=== PATIENT | female | born 1980 | race Caucasian/White ===

== ENCOUNTER → 2020-08-14 14:27 | Outpatient (BNVA) | payer MEDICAID, SELFPAY | PROVIDERS: Visit Provider Registered Nurse Neonatal Intensive Care | DX: J02.9 Acute pharyngitis, unspecified (principal) | CPT/HCPCS: 87880 ==

== ENCOUNTER 2020-12-05 22:41 | Emergency (ER) | payer MEDICAID, SELFPAY ==
[2020-12-05 22:49] VITALS: BP 130/92; PULSE 108; RESP 24; TEMP 36.2; O2SAT 98; BMI 32.4
--- NOTE | 2020-12-05 22:54 | XRR_ITS ---
PROCEDURE INFORMATION: Exam: XR Chest Exam date and time: 12/05/2020 10:54 PM Age: 40 years old Clinical indication: Pain; Left-sided; Additional info: Left sided chest pain under breast TECHNIQUE: Imaging protocol: XR of the chest. Views: 1 view. COMPARISON: CR Chest 2 views* [id number] 01/10/2014 1:35 PM FINDINGS: Lungs: Unremarkable. No consolidation. Pleural spaces: Unremarkable. No pleural effusion. No pneumothorax. Heart/Mediastinum: Unremarkable. No cardiomegaly. Bones/joints: Unremarkable. XR/XR chest 1V portable [id number] IMPRESSION: No acute findings.
--- NOTE | 2020-12-05 23:46 | W.ED.SOB ---
HPI - SOB/Dyspnea General: Chief Complaint: Shortness of Breath/Dyspnea Stated Complaint: cp Time Seen by Provider: 12/05/20 23:22 Source: patient Mode of arrival: ambulatory Limitations: no limitations History of Present Illness: HPI Narrative: 40-year-old female states that she been having left and right-sided chest pain the last 2 days. States it is very sharp and severe in nature. States pain is worse with deep breaths and with point tenderness. She states is improved with rest. States the pain is currently 6 out of 10. Denies any fever. Denies any cough. Denies any vomiting or diarrhea. Associated symptoms: Reports chest pain; Deny abdominal pain, fever(s), nausea or vomiting Review of Systems Const: Denies: fever(s), chills, body aches or change in appetite Eyes: Denies: blurry vision or eye discomfort ENMT: Denies: throat pain or dental pain Card: Reports: chest pain Resp: Denies: dyspnea GI: Denies: abdominal pain, nausea, vomiting or diarrhea : Denies: dysuria Musc: Denies: neck pain or back pain Skin/Breast: Denies: rash Neuro: Denies: headache(s) Psych: Denies: depression Luis/Lymph: Denies: easy bruising All/Imm: Denies: urticaria PFSH ED PFSH: Social History Smoking and tobacco status: current every day smoker Quit status (tobacco): not considering quitting Second hand smoke exposure: Yes Alcohol intake: never Desire information about alcohol rehabilitation?: No Desire information about substance/drug rehabilitation?: No Physical Exam Const: COMMON NORMALS: no acute distress, patient oriented x3 and healthy appearing HENMT: COMMON NORMALS: normocephalic and atraumatic HEAD & SCALP: normocephalic and atraumatic Eye: COMMON NORMALS: Equal, round and reactive pupils present and EOMs intact bilaterally PUPIL: Yes Equal, round and reactive pupils present Neck/C-Spine: COMMON NORMALS: full ROM and supple Chest: COMMONS NORMALS: normal inspection of the chest OTHER: Point tender to left chest reproduces pain Resp: COMMON NORMALS: normal respiratory effort, No retractions, No use of accessory muscles and clear to auscultation bilaterally AUSCULTATION: clear to auscultation bilaterally Cardio: COMMON NORMALS: regular rate, regular rhythm and No murmurs present (Cardio) RATE: regular rate RHYTHM: regular rhythm GI: COMMON NORMALS: Normal to inspection, nondistended, normoactive bowel sounds present, Soft to palpation, non-tender and no masses PALPATION: Yes Soft to palpation Extremity: COMMON NORMALS: normal to inspection and full ROM Neuro: COMMON NORMALS: patient oriented x3, moves all extremities and no focal motor deficits Psych: COMMON NORMALS: mental status grossly normal, Normal thought process present and cooperative THOUGHT PROCESS: Normal thought process present Skin: COMMON NORMALS: no rashes or lesions noted and no wounds GENERAL SKIN EXAM: no rashes or lesions noted Course Vital Signs: Vital signs: Vital Signs Temperature 97.1 F L 12/05/20 22:49 Pulse Rate 92 12/06/20 00:08 Respiratory Rate 20 H 12/06/20 00:08 Blood Pressure 130/92 12/05/20 22:49 Pulse Oximetry 97 12/06/20 00:08 MDM - SOB/Dyspnea MDM Narrative: Medical decision making narrative: Patient presents here with chest pain is likely chest wall pain as she is point tender on exam. EKG x-ray and blood work are all normal she has no signs of cardiac cause or pulmonary embolism. She is stable for discharge is to follow-up PCP and return if worsening. She understands agrees to plan. Lab Data: Labs: Lab Results 12/05/20 12/05/20 12/05/20 Range/Units 23:39 23:39 23:39 WBC 6.5 (4.0-10.0) 10^3/ uL RBC 5.42 H (4.1-5.3) 10^6/u L Hgb 15.7 H (11.5-15.3) g/dL Hct 48.6 H (37.0-47.0) % MCV 89.7 (81-99) fl MCH 29.0 (28.0-34.0) pg MCHC 32.3 (30.0-36.0) g/dL RDW 14.6 (12.1-15.1) % Plt Count 261 (130-400) 10^3/c mm MPV 10.8 H (7.4-10.4) fL Neut % (Auto) 58.9 % Lymph % (Auto) 27.3 % [place] % (Auto) 11.8 % Eos % (Auto) 1.1 % Baso % (Auto) 0.3 % Neut # (Auto) 3.80 (1.8-7.7) 10^3/u L Lymph # (Auto) 1.8 (0.8-4.8) 10^3/u L [place] # (Auto) 0.8 (0.2-0.9) 10^3/u L Eos # (Auto) 0.1 (0.0-0.8) 10^3/u L Baso # (Auto) 0.0 (0.0-0.1) 10^3/u L Nucleated RBC % (a uto) 0 % Nucleated RBCs # 0.0 /100WBC D-Dimer (0-0.59) ug/mIFE U Sodium 137 (136-145) mmol/L Potassium 4.2 (3.5-5.1) mmol/L Chloride 103 (98-107) mmol/L Carbon Dioxide 20 L (22-29) mmol/L Anion Gap 18.2 (5-19) BUN 9 (6-20) mg/dL Creatinine 0.8 (0.5-0.9) mg/dL GFR Calculation 78.7 L (90-130) mL/min Glucose 101 (65-115) mg/dL Calculated Osmolal ity 283 L (285-295) mOsm/k g Calcium 8.8 (8.5-10.5) mg/dL Total Bilirubin 0.2 (0.15-1.2) mg/dL AST 26 (0-32) U/L ALT 26 (0-33) U/L Alkaline Phosphata se 110 H (35-105) IU/L Troponin T Baselin e 6 (0-10) ng/L Total Protein 7.3 (6.6-8.7) g/dL Albumin 4.6 (3.5-5.2) g/dL Globulin 2.7 (1.3-4.6) g/dL HCG, Qual (Negative) 12/05/20 12/05/20 Range/Units 23:39 23:39 WBC (4.0-10.0) 10^3/ uL RBC (4.1-5.3) 10^6/u L Hgb (11.5-15.3) g/dL Hct (37.0-47.0) % MCV (81-99) fl MCH (28.0-34.0) pg MCHC (30.0-36.0) g/dL RDW (12.1-15.1) % Plt Count (130-400) 10^3/c mm MPV (7.4-10.4) fL Neut % (Auto) % Lymph % (Auto) % [place] % (Auto) % Eos % (Auto) % Baso % (Auto) % Neut # (Auto) (1.8-7.7) 10^3/u L Lymph # (Auto) (0.8-4.8) 10^3/u L [place] # (Auto) (0.2-0.9) 10^3/u L Eos # (Auto) (0.0-0.8) 10^3/u L Baso # (Auto) (0.0-0.1) 10^3/u L Nucleated RBC % (a uto) % Nucleated RBCs # /100WBC D-Dimer <= 0.27 (0-0.59) ug/mIFE U Sodium (136-145) mmol/L Potassium (3.5-5.1) mmol/L Chloride (98-107) mmol/L Carbon Dioxide (22-29) mmol/L Anion Gap (5-19) BUN (6-20) mg/dL Creatinine (0.5-0.9) mg/dL GFR Calculation (90-130) mL/min Glucose (65-115) mg/dL Calculated Osmolal ity (285-295) mOsm/k g Calcium (8.5-10.5) mg/dL Total Bilirubin (0.15-1.2) mg/dL AST (0-32) U/L ALT (0-33) U/L Alkaline Phosphata se (35-105) IU/L Troponin T Baselin e (0-10) ng/L Total Protein (6.6-8.7) g/dL Albumin (3.5-5.2) g/dL Globulin (1.3-4.6) g/dL HCG, Qual Negative (Negative) Imaging Data^: CXR: Attestation: I personally reviewed and interpreted this imaging study as follows: Radiologist's impression: [address] [address] XRay Report Signed Patient: Wen Mcintyre Unit #: [id number] : 1980 Age/Sex: 40 / F ADM Date: 12/05/20 Loc: ER Room/Bed: Attending Dr: Ordering Provider/Ordering MD: Sajan Rivas NP Date of Service: 12/05/20 Procedure(s): XR chest 1V portable [id number] Accession Number(s): [id number] Report Number: [id number] PROCEDURE INFORMATION: Exam: XR Chest Exam date and time: 12/05/2020 10:54 PM Age: 40 years old Clinical indication: Pain; Left-sided; Additional info: Left sided chest pain under breast TECHNIQUE: Imaging protocol: XR of the chest. Views: 1 view. COMPARISON: CR Chest 2 views* [id number] 01/10/2014 1:35 PM FINDINGS: Lungs: Unremarkable. No consolidation. Pleural spaces: Unremarkable. No pleural effusion. No pneumothorax. Heart/Mediastinum: Unremarkable. No cardiomegaly. Bones/joints: Unremarkable. XR/XR chest 1V portable [id number] IMPRESSION: No acute findings. Dictated By: Matthew Pozo MD Signed By: Matthew Pozo MD Signed Date/Time: 12/05/202326 DD/ 24 EKG Data^: EKG 1: Attestation: I personally reviewed and interpreted this EKG as follows: EKG Interpretation Date: 12/06/20 EKG interpretation time: 22:58 Interpretation: sinus tach hr [address] or t wave abnormalities qrs 84 qtc 395 Discharge Plan Discharge Patient Disposition: Home Clinical Impression: Chest pain Qualifiers: Chest pain type: unspecified Qualified Code(s): R07.9 - Chest pain, unspecified Condition: Stable Prescriptions: New methocarbamol 750 mg tablet 750 mg PO Q6H PRN (Reason: spasms) Qty: 20 RF: 0 Naprosyn 500 mg tablet 500 mg PO BID PRN (Reason: pain) Qty: 20 RF: 0 No Action amoxicillin 500 mg capsule 500 mg PO QID Qty: 40 RF: 0 Discharge Orders: Discharge ED (Routine); Ordered 12/06/20 Ordered By: Libia Pierre Discharge Diet: Advance as tolerated Discharge Activity: Resume usual activity Patient Instructions: Chest Pain - Chest Wall Coding Level of Care Code ED Grain Commodity Manager for Chg Fwd Exam Comprehensive
[2020-12-05 23:51] LABS: Basophils % 0.3 %; Eosinophils # 0.1 10^3/uL (0.0-0.8); Eosinophils % 1.1 %; Hematocrit 48.6 % (37.0-47.0); Hemoglobin 15.7 g/dL (11.5-15.3); Lymphocytes # 1.8 10^3/uL (0.8-4.8); Lymphocytes % 27.3 %; Mean Corpuscular HGB Conc 32.3 g/dL (30.0-36.0); Mean Corpuscular Volume 89.7 fl (81-99); Mean Platelet Volume 10.8 fL (7.4-10.4); Monocytes # 0.8 10^3/uL (0.2-0.9); Monocytes % 11.8 %; Neutrophils % 58.9 %; Nucleated Red Blood Cells % 0 %; Platelet Count 261 10^3/cmm (130-400); Red Blood Count 5.42 10^6/uL (4.1-5.3); Red Cell Distribution Width 14.6 % (12.1-15.1); White Blood Count 6.5 10^3/uL (4.0-10.0)
[2020-12-06 00:04] LABS: D Dimer <= 0.27 ug/mIFEU (0-0.59); HCG, Serum Qual Negative (Negative)
[2020-12-06] MEDS: ondansetron 2 mg/ML SDV 2 mL 4 MG IVP (00:06)
[2020-12-06] MEDS: morphine 4 mg/mL SDV 1 mL IVP (00:07)
[2020-12-06 00:08] VITALS: PULSE 92; RESP 20; O2SAT 97
[2020-12-06 00:15] LABS: Alanine Aminotransferase 26 U/L (0-33); Albumin Level 4.6 g/dL (3.5-5.2); Alkaline Phosphatase 110 IU/L (35-105); Blood Urea Nitrogen 9 mg/dL (6-20); Calcium 8.8 mg/dL (8.5-10.5); Carbon Dioxide 20 mmol/L (22-29); Chloride 103 mmol/L (98-107); Globulin 2.7 g/dL (1.3-4.6); Glomerular Filtration Rate 78.7 mL/min (90-130); Glucose 101 mg/dL (65-115); Osmolality Calculated 283 mOsm/kg (285-295); Sodium 137 mmol/L (136-145); Total Bilirubin 0.2 mg/dL (0.15-1.2); Total Protein 7.3 g/dL (6.6-8.7)
[2020-12-06 00:18] LABS: Anion Gap 18.2 (5-19); Aspartate Amino Transferase 26 U/L (0-32); Potassium 4.2 mmol/L (3.5-5.1); Troponin(5th) Baseline 6 ng/L (0-10)
[2020-12-06 00:30] VITALS: PULSE 97; RESP 16; O2SAT 98
== END 2020-12-06 00:30 | disposition home or self-care (01) ==
PROVIDERS: Nurse Practitioner Family; Emergency Provider Emergency Medicine
DX: R07.9 Chest pain, unspecified (principal); F17.200 Nicotine dependence, unspecified, uncomplicated
CPT/HCPCS: 71045; 80053; 84484; 84703; 85025; 85378; 96374; 96375; 99283; J2270; J2405

== ENCOUNTER → 2021-10-16 11:33 | Outpatient (BNVA) | payer MEDICAID, SELFPAY | PROVIDERS: PCP Nurse Practitioner Family; Visit Provider Obstetrics & Gynecology | DX: Z01.812 Encounter for preprocedural laboratory examination (principal); N75.1 Abscess of Bartholin's gland | CPT/HCPCS: 80053; 81000; 81025; 85025; 86850; 86900 ==

== ENCOUNTER 2021-10-17 12:22 | Day surgery (SDC) | payer MEDICAID, SELFPAY ==
[2021-10-17 13:00] VITALS: BMI 34.3
[2021-10-17 13:06] LABS: OR HCG Qualitative Urine Negative (Negative)
[2021-10-17] MEDS: sodium chloride 0.9% 500 ML IV (13:19)
[2021-10-17] MEDS: scopolamine 1.5 Patch 1 PATCH TRANSDERMA (13:19)
[2021-10-17] MEDS: sodium chloride 0.9% 1,000 ML 30 ML IV (13:49)
--- NOTE | 2021-10-17 14:16 | ANES.PREANE2 ---
Pre-Anesthetic Assessment Height/Weight: Height 1.63 m Weight 90.718 kg Preop Diagnosis: Left Bartholin gland cyst Operation Date: 10/17/21 13:55 Proposed Procedures p Marsupialization of bartholins gland cyst 66844,N75.0(Not Applicable) - Joe Donohue MD Familial anesthetic complications: None Was Beta Afua taken within 24 hours: N/A Was Clonidine taken within 24 hours: N/A Last intake: Intake Last Liquid Date 10/16/21 Last Liquid Time 22:30 Last Solid Date 10/16/21 Last Solid Time 22:30 Social Alcohol and Tobacco Exam alert, oriented x 3 and regular rate & rhythm Airway Submandibular: within normal limits Cervical ROM: within normal limits Mallampati: Class II Dentition: chipped Pulmonary Chronic Obstructive Pulmonary Disease CV/HEM Hypertension Metabolic Morbid Obesity Anesthetic Plan ASA status: 3 Anesthesia: General Medications/Allergies Home Medications Medication Instructions Recorded Confirmed Last Taken Type lisinopril 10 mg tablet 10 mg PO DAILY 12/16/20 10/17/21 10/16/21 History ibuprofen 800 mg tablet 800 mg PO TID PRN #90 tab 12/29/20 10/17/21 10/16/21 Rx Allergies Allergy/AdvReac Type Severity Reaction Status Date / Time No Known Allergies Allergy Verified 10/16/21 11:01 Current Medications Generic Name Dose Route Start Last Admin Trade Name Freq PRN Reason Stop Dose Admin Sodium Chloride 1,000 mls @ 30 mls/hr 10/17/21 13:45 10/17/21 13:49 Sodium Chloride 0.9% IV 10/18/21 13:44 30 mls/hr .Q24H WILMER Administration PFSH Anesthesia Family History Mother Anesthesia complication Father Dementia Other Bleeding disorder CAD (coronary artery disease) Cancer Chronic kidney disease (CKD) Clotting disorder Diabetes Hypertension Stroke Denies family history of Hyperlipidemia Psychiatric illness Suicide Lung disease Social History Smoking and tobacco status: current every day smoker Quit status (tobacco): not considering quitting Second hand smoke exposure: Yes Alcohol intake: never Desire information about alcohol rehabilitation?: No Desire information about substance/drug rehabilitation?: No Data Anesthesia Cardiac Studies: No Data to Display
--- NOTE | 2021-10-17 14:36 | W.PM.OPSUD ---
Surgery/Procedure H&P Update DATE OF PROCEDURE: October 17, 2021 DATE H&P PERFORMED: 10/16/21 H&P UPDATE INFORMATION: I have reviewed H&P completed within last 30 days, I have examined patient prior to procedure and Changes to prior documentation as noted here PREOP DIAGNOSIS: Left Bartholin gland cyst PLANNED PROCEDURE: Operation Date: 10/17/21 13:55 Proposed Procedures p Marsupialization of bartholins gland cyst 80974,N75.0(Not Applicable) - Joe Donohue MD
[2021-10-17] MEDS: ceFAZolin 2,000 MG in sodium chloride 0.9% (plus) 50 ML 100 MG IV (16:10)
--- NOTE | 2021-10-17 16:50 | PM.OP ---
Operative Report Date of procedure: October 17, 2021 Pre-op diagnosis: Preop Diagnosis Left Bartholin gland cyst Post-op diagnosis: Same as above Post-op findings: Left Bartholin gland cyst Procedure done: Left Bartholin gland marsupialization Surgeon: Joe Donohue MD Estimated blood loss (mL): 5 IV fluids (mL): 1,000 Procedure: After informed consent, the patient was taken to the operating room where general anesthesia was administered. The patient was placed in dorsal lithothomy position. She was examined under anesthesia and found to have a normal uterus with normal adnexa. After a bimanual examination to determine the extent of the cyst. She was then prep and draped in normal sterile fashion. The labia were retracted with the [place] Start retractor and the introitus of the Vagina was exposed. An incision was made over the mucosa of the vagina at its junction with the introitus down to the wall of the gland on the left side. The wall of the gland was incised and the content of the cyst was evacuated. A culture was taken. The west of the cyst were grasped with Allis clamps. The wall of the cyst were sutured with interrupted 3-0 Vicril to the skin of introitus laterally and to the vaginal of mucosa medially. The patient tolerated the procedure well and instruments and laps count was correct times two.
[2021-10-17 16:53] VITALS: BP 143/92; PULSE 68; RESP 20; TEMP 36.7; O2SAT 96
[2021-10-17 16:57] VITALS: BP 160/107; PULSE 68; RESP 17; O2SAT 100
[2021-10-17 17:00] VITALS: BP 163/100; PULSE 71; RESP 19; TEMP 36.7; O2SAT 97
[2021-10-17 17:05] VITALS: BP 166/95; PULSE 70; RESP 18; O2SAT 96
--- NOTE | 2021-10-17 17:27 | ANE.PACU2 ---
Inpatient post-anesthesia follow up: Airway intact: Yes Vital signs: Temperature 98.0 F Pulse Rate 70 Respiratory Rate 18 Blood Pressure 166/95 Pulse Oximetry 96 Oxygen Delivery Me thod Room Air Oxygen Flow Rate 6 Fraction of Inspir ed Oxygen Hydration adequate: Yes Nausea and vomiting: No Pain level: 3 Mental status: Baseline
[2021-10-17 17:30] VITALS: BP 157/96; PULSE 67; RESP 18; TEMP 36.8; O2SAT 98
== END 2021-10-17 17:50 | disposition home or self-care (01) ==
PROVIDERS: Anesthesiology; PCP Nurse Practitioner Family; Visit Provider Obstetrics & Gynecology
PROC: (CPT 56740; principal; 2021-10-17 13:45)
DX: N75.0 Cyst of Bartholin's gland (principal); J44.9 Chronic obstructive pulmonary disease, unspecified; I10 Essential (primary) hypertension; E66.01 Morbid (severe) obesity due to excess calories; Z68.34 Body mass index [BMI] 34.0-34.9, adult; F17.210 Nicotine dependence, cigarettes, uncomplicated
CPT/HCPCS: 56440; 81025; 84703; 87070; 87075; 87205; J2250; J2704; J3010; J7030; J7040

== ENCOUNTER 2022-01-22 21:45 | Inpatient (IN) | payer MEDICAID, SELFPAY ==
[2022-01-22 21:51] VITALS: BP 122/78; PULSE 108; RESP 18; TEMP 36.8; O2SAT 97; BMI 35.0
--- NOTE | 2022-01-22 22:01 | ECG_ITS ---
[facility] Test Date: 2022-01-22 Pat Name: Wen Mcintyre Department: Room: Gender: Female Abrasive Grinder: : 1980 Requested By: Crescencio Hernandez Order Number: [id number] Tereso MD: Parker Judd M.D. Measurements Intervals [place] Rate: 109 P: 68 MT: 148 QRS: 89 QRSD: 93 T: 28 QT: 353 QTc: 476 Interpretive Statements SINUS TACHYCARDIA LEFT ATRIAL ENLARGEMENT [-0.15mV P-WAVE IN V1/V2] Compared to ECG 10/06/2017 15:15:44 Atrial abnormality now present Sinus rhythm no longer present Electronically Signed On 01-23-2022 8:24:14 CDT by Parker Judd M.D. [id number]
--- NOTE | 2022-01-22 22:01 | XRR_ITS ---
PROCEDURE INFORMATION: Exam: XR Chest Exam date and time: 01/22/2022 10:26 PM Age: 41 years old Clinical indication: Chest pressure and chest wall pain; Additional info: Chest pain TECHNIQUE: Imaging protocol: Radiologic exam of the chest. Views: 1 view. COMPARISON: CR XR chest 1V portable [id number] 12/05/2020 10:56 PM FINDINGS: Lungs: Bilateral lower lobe opacities are compatible with superimposition of breast shadows. No consolidation. Pleural spaces: Unremarkable. No pleural effusion. No pneumothorax. Heart/Mediastinum: Unremarkable. No cardiomegaly. Bones/joints: Unremarkable. XR/XR chest 1V portable [id number] IMPRESSION: No acute radiographic findings in the chest.
[2022-01-22 22:29] VITALS: BP 98/69; PULSE 96; RESP 17; O2SAT 95
[2022-01-22 22:32] LABS: Basophils # 0.2 10^3/uL (0.0-0.1); Basophils % 0.9 %; Hematocrit 52.9 % (37.0-47.0); Hemoglobin 18.2 g/dL (11.5-15.3); Lymphocytes # 1.4 10^3/uL (0.8-4.8); Lymphocytes % 6.7 %; Mean Corpuscular HGB Conc 34.4 g/dL (30.0-36.0); Mean Corpuscular Hemoglobin 30.9 pg (28.0-34.0); Mean Corpuscular Volume 89.8 fl (81-99); Mean Platelet Volume 10.2 fL (7.4-10.4); Monocytes # 1.3 10^3/uL (0.2-0.9); Monocytes % 6.3 %; Neutrophils # 17.73 10^3/uL (1.8-7.7); Neutrophils % 84.7 %; Nucleated Red Blood Cells % 0.1 %; Platelet Count 301 10^3/cmm (130-400); Red Blood Count 5.89 10^6/uL (4.1-5.3); Red Cell Distribution Width 14.8 % (12.1-15.1); White Blood Count 20.9 10^3/uL (4.0-10.0)
--- NOTE | 2022-01-22 22:44 | W.ED.CHESTPA ---
HPI - Chest Pain General: Chief Complaint: ER Hold Stated Complaint: Stoke Like Symptoms Time Seen by Provider: 01/22/22 22:44 History of Present Illness: Ms Mcintyre is a 41-year-old lady with history of hypertension who presents to the emergency department due to generalized illness. She reports a few day history of uncontrolled blood pressure despite taking her blood pressure medication however this is gradually improved. However this afternoon she noted right arm cramping and tingling in bilateral fingers with some radiation of the chest. Additionally she had multiple episodes of nonbilious and nonbloody emesis. She has fatigue and presyncopal type feeling. Intensity symptoms is moderate to severe. Course has persisted. No other specific changes in health, exacerbating, or alleviating factors identified. Onset (ago): day(s) Timing of current episode: increasing Onset: during rest Relieving factors: nothing Exacerbating factors: nothing Associated symptoms: Reports nausea and vomiting Review of Systems General: Reports: 10 or more systems reviewed and unremarkable except in HPI and below GI: Reports: nausea and vomiting [facility] ED PFSH: Medical History Bartholin gland cyst 10/17/2021- Left bartholin gland marsupialization performed by Dr. Donohue at [facility] Hypertension Surgical History History of delivery x3 - first one due to failure to progress. Family History Mother Anesthesia complication Father Dementia Other Bleeding disorder CAD (coronary artery disease) Cancer Chronic kidney disease (CKD) Clotting disorder Diabetes Hypertension Stroke Denies family history of Hyperlipidemia Psychiatric illness Suicide Lung disease Social History Smoking and tobacco status: current every day smoker Quit status (tobacco): not considering quitting Second hand smoke exposure: Yes Alcohol intake: never Desire information about alcohol rehabilitation?: No Desire information about substance/drug rehabilitation?: No Female Reproductive History: Date of last menstrual period: 01/08/22 Physical Exam Const: COMMON NORMALS: patient oriented x3 and alert GENERAL APPEARANCE: cooperative and well developed HENMT: COMMON NORMALS: normocephalic and atraumatic HEAD & SCALP: normocephalic and atraumatic THROAT: posterior oropharynx normal Eye: COMMON NORMALS: conjunctivae normal CONJUNCTIVA: Yes conjunctivae normal SCLERA: sclerae normal Neck/C-Spine: COMMON NORMALS: supple GENERAL: Yes trachea midline Resp: COMMON NORMALS: normal respiratory effort and clear to auscultation bilaterally EFFORT & INSPECTION: Yes able to speak in complete sentences AUSCULTATION: clear to auscultation bilaterally Cardio: COMMON NORMALS: regular rate and regular rhythm RATE: regular rate RHYTHM: regular rhythm GI: COMMON NORMALS: Soft to palpation PALPATION: Yes Soft to palpation and No Tenderness to palpation present (GI) Extremity: GENERAL: Yes normal exam except as noted and No edema Neuro: COMMON NORMALS: patient oriented x3, CN's II-XII intact bilaterally, moves all extremities, no focal motor deficits and no sensory deficits noted SENSORIUM/ORIENTATION: Yes alert and No Orientation impaired Psych: COMMON NORMALS: mental status grossly normal and Normal thought process present THOUGHT PROCESS: Normal thought process present Course ED course: - Patient was seen and evaluated by me at bedside - Patient placed on cardiac monitors, IV access obtained - Initial evaluation notable for exam as above. - Labs and xrays personally interpreted by me. EKG notable for sinus rhythm, no STEMI - Fluids, analgesia, and antiemetic given - Labs notable for leukocytosis, hemoconcentration. Metabolic panel with creatinine significantly elevated from prior comparison. Transaminitis of uncertain etiology. - Imaging notable for no lobar consolidation or pneumothorax on chest x-ray. CT head negative for acute intracranial pathology. CT abdomen and pelvis notable for no acute inflammatory process, hepatic steatosis is present which may explain transaminitis. - Upon serial reexamination after treatment the patient was only mildly improved - Based on patient history, evaluation, and testing as interpreted the most likely cause of the patient's condition is DEANNA, chest pain, leukocytosis of uncertain etiology - The results of ED evaluation were discussed with the patient including plan for admission due to requirement for level of care not available if discharged to prevent significant worsening/deterioration. - Admitting service was contacted and Dr Ureña with the hospitalist service agreed to admit the patient - Patient was admitted without further deterioration or significant events. Note: Click bubbles or prepopulated delgado in note writing are used for assistance with data collection and billing and are inherently more limited than narrative and other text portions of this note. Please use narrative for additional clinical history and defer to narrative/free test for any case of contradictory information. If information appears in only free text or click bubble it should be considered present or absent as reported. Please contact note senior grant writer for clarifications of clinical information or contradictory information. MDM is a brief summary, contradictory or erroneous seeming information should be clarified and full note should be reviewed. Vital Signs: Vital signs: Vital Signs Temperature 98.1 F 01/26/22 13:06 Pulse Rate 93 01/26/22 13:06 Respiratory Rate 15 01/26/22 13:06 Blood Pressure 138/88 01/26/22 13:06 Pulse Oximetry 96 01/26/22 13:06 Oxygen Delivery Me thod 01/26/22 11:59 MDM - Chest Pain Medical Decision Making 41-year-old lady presenting with chest pain found to have dehydration with DEANNA and was closed etiology. Admitted for further management. Medical Records I reviewed the patient's medical records. Lab Data I reviewed the patient's lab results. : 01/26/22 05:25 01/26/22 05:25 Radiology Impressions Chest X-Ray 01/22/22 22:01 IMPRESSION: No acute radiographic findings in the chest. Head CT 01/22/22 22:55 IMPRESSION: No evidence of acute intracranial hemorrhage, mass effect, or midline shift. Abdomen/Pelvis CT 01/22/22 23:11 IMPRESSION: 1. Negative for acute inflammatory process in the abdomen or pelvis. 2. Hepatic steatosis. Abdomen Ultrasound 01/23/22 03:24 IMPRESSION: Hyperechoic liver, which can be seen with fatty infiltration or hepatocellular disease. Renal Ultrasound 01/23/22 04:46 IMPRESSION: Normal renal ultrasound. Head MRI 01/24/22 12:14 IMPRESSION: 1. No evidence of restricted diffusion to suggest acute ischemia. 2. No suspicious intracranial signal abnormalities. No evidence of posterior reversible encephalopathy syndrome. 3. No abnormal intracranial enhancement. 4. No hemosiderin on the susceptibility weighted images. 5. No hydrocephalus. 6. Incidental benign enhancing venous angioma in the LEFT frontal white matter. Laboratory Results WBC 5.9 10^3/uL (4.0-10.0) 01/24/22 05:10 RBC 4.69 10^6/uL (4.1-5.3) 01/24/22 05:10 Hgb 14.8 g/dL (11.5-15.3) 01/24/22 05:10 Hct 43.4 % (37.0-47.0) 01/24/22 05:10 MCV 92.5 fl (81-99) 01/24/22 05:10 MCH 31.6 pg (28.0-34.0) 01/24/22 05:10 MCHC 34.1 g/dL (30.0-36.0) 01/24/22 05:10 RDW 14.7 % (12.1-15.1) 01/24/22 05:10 Plt Count 182 10^3/cmm (130-400) D 01/24/22 05:10 MPV 10.5 fL (7.4-10.4) H 01/24/22 05:10 Neut % (Auto) 58.8 % 01/24/22 05:10 Lymph % (Auto) 27.8 % 01/24/22 05:10 [place] % (Auto) 11.0 % 01/24/22 05:10 Eos % (Auto) 1.4 % 01/24/22 05:10 Baso % (Auto) 0.5 % 01/24/22 05:10 Neut # (Auto) 3.47 10^3/uL (1.8-7.7) 01/24/22 05:10 Lymph # (Auto) 1.6 10^3/uL (0.8-4.8) 01/24/22 05:10 [place] # (Auto) 0.7 10^3/uL (0.2-0.9) 01/24/22 05:10 Eos # (Auto) 0.1 10^3/uL (0.0-0.8) 01/24/22 05:10 Baso # (Auto) 0.0 10^3/uL (0.0-0.1) 01/24/22 05:10 Nucleated RBC % (auto) 0 % 01/24/22 05:10 Nucleated RBCs # 0.0 /100WBC 01/24/22 05:10 PT 13.10 SECONDS (12.1-14.9) 01/24/22 05:10 INR 0.96 (0.8-1.2) 01/24/22 05:10 Sodium 133 mmol/L (136-145) L 01/24/22 05:10 Potassium 3.8 mmol/L (3.5-5.1) 01/24/22 05:10 Chloride 97 mmol/L (98-107) L 01/24/22 05:10 Carbon Dioxide 24 mmol/L (22-29) 01/24/22 05:10 Anion Gap 15.8 (5-19) 01/24/22 05:10 BUN 15 mg/dL (6-20) 01/24/22 05:10 Creatinine 1.1 mg/dL (0.5-0.9) H 01/24/22 05:10 GFR Calculation 54.2 mL/min (90-130) L 01/24/22 05:10 Glucose 108 mg/dL (65-115) 01/24/22 05:10 Estimat Average Glucose 120 01/24/22 05:10 Hemoglobin A1c 5.8 % (4.0-6.0) 01/24/22 05:10 Calculated Osmolality 277 mOsm/kg (285-295) L 01/24/22 05:10 Calcium 9.3 mg/dL (8.5-10.5) 01/24/22 05:10 Phosphorus 3.3 mg/dL (2.5-4.5) 01/23/22 15:22 Magnesium 2.2 mg/dL (1.7-2.3) 01/23/22 15:22 Total Bilirubin 0.2 mg/dL (0.15-1.2) 01/24/22 05:10 AST 52 U/L (0-32) H 01/24/22 05:10 ALT 96 U/L (0-33) H 01/24/22 05:10 Alkaline Phosphatase 110 U/L (35-105) H 01/24/22 05:10 Creatine Kinase 207 U/L (26-192) H 01/23/22 15:22 CK-MB (CK-2) 2.6 ng/mL (0-5.34) 01/23/22 15: CK-MB (CK-2) Rel Index % (0.0-10.4) 01/23/22 15:22 Troponin T Baseline 18 ng/L (0-10) H 01/22/22 22:58 Troponin T 120 Minute 11.34 ng/L (0-10) H 01/23/22 02:00 Delta Troponin T -6.66 ABS# (0-10) L 01/23/22 02:00 Troponin T Hi Sens 6Hr 10.68 ng/L (0-10) H 01/23/22 04:50 Troponin T Hi Sens 6Hr Delta -7.32 ng/L (0-12) L 01/23/22 04:50 Total Protein 6.7 g/dL (6.6-8.7) 01/24/22 05:10 Albumin 3.7 g/dL (3.5-5.2) 01/24/22 05:10 Globulin 3.0 g/dL (1.3-4.6) 01/24/22 05:10 Nwomi-0-Wlwypudcy 0.3 g/dL (0.2-0.3) 01/23/22 15:22 Zefuf-6-Djcnndtzg 0.9 g/dL (0.5-0.9) 01/23/22 15:22 Ajbr-0-Ixmnqnwo 0.5 g/dL (0.4-0.6) 01/23/22 15:22 Hhej-7-Smkqovfn 0.4 g/dL (0.2-0.5) 01/23/22 15:22 Gamma Globulins 1.1 g/dL (0.8-1.7) 01/23/22 15:22 Abnorm Protein Band 1 Not Reportable 01/23/22 15:22 Triglycerides 393 mg/dL (0-150) H 01/24/22 05:10 Cholesterol 214 mg/dL (0-200) H 01/24/22 05:10 LDL Cholesterol, Calc 105 mg/dL (50-129) 01/24/22 05:10 HDL Cholesterol 30 mg/dL (60-100) L 01/24/22 05:10 LDL/HDL Ratio 3.50 RATIO (0.00-3.22) H 01/24/22 05:10 Cholesterol/HDL Ratio 7.13 mg/dL (0.0-4.40) H 01/24/22 05:10 Procalcitonin 0.06 ng/mL (0-0.5) 01/24/22 05:10 TSH 5.68 uIU/mL (0.27-4.20) H 01/24/22 05:10 Urine Color Yellow (Yellow) 01/24/22 09:38 Urine Appearance Clear (CLEAR) 01/24/22 09:38 Urine pH 6 (5-7) 01/24/22 09:38 Ur Specific [place] 1.015 (1.005-1.030) 01/24/22 09:38 Urine Protein Neg (Negative) 01/24/22 09:38 Urine Glucose (UA) Norm (Normal) 01/24/22 09:38 Urine Ketones Negative (Negative) 01/24/22 09:38 Urine Blood Neg (Negative) 01/24/22 09:38 Urine Nitrate Negative (Negative) 01/24/22 09:38 Urine Bilirubin Neg (Negative) 01/24/22 09:38 Prot Sulfosalicylic Acd Cancelled 01/23/22 01:13 Urine Urobilinogen Neg mg/dL (Negative) 01/24/22 09:38 Ur Leukocyte Esterase 2+ (Negative) H 01/24/22 09:38 Urine RBC 0-4 /hpf (0-2) H 01/24/22 09:38 Urine WBC 0-4 /hpf (0-5) H 01/24/22 09:38 Ur Squamous Epith Cells 10-15 /hpf (0-5) H 01/24/22 09:38 Ur Transition Epith Cell Cancelled 01/23/22 01:13 Ur Renal Epithelial Cell Cancelled 01/23/22 01:13 Calcium Oxalate Crystal Cancelled 01/23/22 01:13 Uric Acid Crystals Cancelled 01/23/22 01:13 Triple Phos Crystals Cancelled 01/23/22 01:13 Other Crystals Cancelled 01/23/22 01:13 Amorphous Sediment Not Reportable 01/24/22 09:38 Urine Bacteria 1+ /hpf (NONE) H 01/24/22 09:38 Hyaline Casts 0-4 /lpf H 01/23/22 01:16 Fine Granular Casts 0-4 /lpf H 01/23/22 01:16 Coarse Granular Casts 5-10 /lpf H 01/23/22 01:16 RBC Casts Cancelled 01/23/22 01:13 Other Casts Cancelled 01/23/22 01:13 Urine Mucus Cancelled 01/23/22 01:13 Urine Trichomonas 1+ /hpf H 01/24/22 09:38 Urine Yeast Cancelled 01/23/22 01:13 Urine Sperm Cancelled 01/23/22 01:13 Ur Oval Fat Bodies Cancelled 01/23/22 01:13 U Random Total Protein 13 mg/dL 01/24/22 09:38 Ur Random Sodium 136 mmol/L 01/23/22 01:13 Urine Creatinine 112 mg/dL (28-217) 01/24/22 09:38 U Abnormal Prot Band 2 Not Reportable 01/23/22 15:22 U Abnormal Prot Band 3 Not Reportable 01/23/22 15:22 Urine Opiates Screen Negative ng/mL (Negative) 01/24/22 09:38 Acetaminophen < 5.0 ug/mL (10-30) L 01/23/22 04:50 Ur Barbiturates Screen Negative ng/mL (Negative) 01/24/22 09:38 Ur Phencyclidine Scrn Negative ng/mL (Negative) 01/24/22 09:38 Ur Amphetamines Screen Negative ng/mL (Negative) 01/24/22 09:38 U Benzodiazepines Scrn Negative ng/mL (Negative) 01/24/22 09:38 Urine Cocaine Screen Negative ng/mL (Negative) 01/24/22 09:38 U Marijuana (THC) Screen Negative ng/mL (Negative) 01/24/22 09:38 Pro Electrophoresis Int See note 01/23/22 15:22 ISAAC Screen Positive (NEGATIVE) A 01/23/22 15:22 ISAAC Titer 1:80 titer H 01/23/22 15:22 ISAAC Titer 2 1:320 titer H 01/23/22 15:22 ISAAC Pattern Nuclear, speckled A 01/23/22 15:22 ISAAC Pattern 2 Cytoplasmic A 01/23/22 15:22 ANCA Screen Negative (NEGATIVE) 01/23/22 15:22 ANCA Titer Not Reportable 01/23/22 15:22 Complement C3 171 mg/dL (90-180) 01/23/22 15:22 Complement C4 44 mg/dL (10-40) H 01/23/22 15:22 Tot Complement (CH50) >60 U/mL (31-60) H 01/23/22 15:22 Free [place] Light Chains 23.9 mg/L (3.3-19.4) H 01/23/22 15:22 Free [place] Light Chain 16.5 mg/L (5.7-26.3) 01/23/22 15:22 Free [place]/Lambda Ratio 1.45 (0.26-1.65) 01/23/22 15:22 Hep Bs Antigen Non-reactive (Nonreactive) 01/23/22 04:03 Hep Bs Antibody 3.5 (11.5-1000) L 01/23/22 04:03 Hep B Core Total Ab Non-reactive (Nonreactive) 01/23/22 04:03 Hepatitis C Antibody Non-reactive (Nonreactive) 01/23/22 04:03 SARS-CoV-2 Ag (Rapid) negative (Negative) 01/23/22 00:31 Anti-Streptolysin O Ab 60 IU/mL (<200) 01/23/22 04:03 Discharge Plan Discharge Patient Disposition: Placed in Observation Admit Provider: Wilbur Ureña Clinical Impression: Atypical chest pain, DEANNA (acute kidney injury), Leukocytosis Discharge Diet: Regular and Low Salt Discharge Activity: Resume usual activity Coding Level of Care Code ED Machine Engraver for Johnny Fwd Exam Comprehensive
[2022-01-22 22:46] LABS: Alanine Aminotransferase 153 U/L (0-33); Albumin Level 5.2 g/dL (3.5-5.2); Alkaline Phosphatase 142 U/L (35-105); Blood Urea Nitrogen 14 mg/dL (6-20); Calcium 10.5 mg/dL (8.5-10.5); Carbon Dioxide 20 mmol/L (22-29); Chloride 97 mmol/L (98-107); Globulin 3.6 g/dL (1.3-4.6); Glucose 134 mg/dL (65-115); Magnesium 2.3 mg/dL (1.7-2.3); Osmolality Calculated 288 mOsm/kg (285-295); Sodium 138 mmol/L (136-145); Total Bilirubin 0.4 mg/dL (0.15-1.2); Total Protein 8.8 g/dL (6.6-8.7)
[2022-01-22 22:47] LABS: Anion Gap 25.3 (5-19); Potassium 4.3 mmol/L (3.5-5.1)
[2022-01-22 22:48] VITALS: RESP 18
[2022-01-22 22:48] LABS: Aspartate Amino Transferase 83 U/L (0-32)
[2022-01-22] MEDS: fentaNYL 50 mcg/mL INJ 2mL IVP (22:48)
[2022-01-22] MEDS: ondansetron 2 mg/ML SDV 2 mL 4 MG IVP (22:49)
--- NOTE | 2022-01-22 22:55 | CTR_ITS ---
PROCEDURE INFORMATION: Exam: CT Head Without Contrast Exam date and time: 01/22/2022 11:08 PM Age: 41 years old Clinical indication: Patient HX: Hypertensive with n/v. ; Additional info: Elevated blood pressure TECHNIQUE: Imaging protocol: Computed tomography of the head without contrast. Radiation optimization: All CT scans at this facility use at least one of these dose optimization techniques: automated exposure control; mA and/or kV adjustment per patient size (includes targeted exams where dose is matched to clinical indication); or iterative reconstruction. COMPARISON: No relevant prior studies available. RADIATION DOSE METRICS: Total DLP (mGy-cm): 1061.88 FINDINGS: Brain: No evidence of acute intracranial hemorrhage. The kahn-white matter differentiation is maintained. No significant mass effect or midline shift. Cerebral ventricles: No ventriculomegaly. Paranasal sinuses: Visualized sinuses are unremarkable. No fluid levels. Mastoid air cells: Visualized mastoid air cells are well aerated. Bones/joints: Unremarkable. No acute fracture. Soft tissues: Unremarkable. Vasculature: Mild asymmetric prominence along the right parasellar region, likely tortuous right carotid siphon. Findings can be evaluated with MRI of the brain without and with contrast or CT angiography of the head. CT/CT head wo con* [id number] IMPRESSION: No evidence of acute intracranial hemorrhage, mass effect, or midline shift.
--- NOTE | 2022-01-22 23:11 | CTR_ITS ---
PROCEDURE INFORMATION: Exam: CT Abdomen And Pelvis Without Contrast Exam date and time: 01/22/2022 11:14 PM Age: 41 years old Clinical indication: Nausea and vomiting; Prior surgery; Surgery type: Csection; Patient HX: N/v with elevated wbc and lisandro. ; Additional info: Lisandro, leukocytosis, ? obstructive pathology TECHNIQUE: Imaging protocol: Computed tomography of the abdomen and pelvis without contrast. Radiation optimization: All CT scans at this facility use at least one of these dose optimization techniques: automated exposure control; mA and/or kV adjustment per patient size (includes targeted exams where dose is matched to clinical indication); or iterative reconstruction. COMPARISON: CR (CHEST, ) 01/22/2022 10:26 PM RADIATION DOSE METRICS: Total DLP (mGy-cm): 929.13 FINDINGS: Liver: Hepatic steatosis. Gallbladder and bile ducts: Normal. No calcified stones. No ductal dilation. Pancreas: Normal. No ductal dilation. Spleen: Normal. No splenomegaly. Adrenal glands: Normal. No mass. Kidneys and ureters: Normal. No hydronephrosis. Stomach and bowel: Unremarkable. No obstruction. No mucosal thickening. Appendix: No evidence of appendicitis. Intraperitoneal space: Unremarkable. No free air. No significant fluid collection. Vasculature: Unremarkable. No abdominal aortic aneurysm. Lymph nodes: Unremarkable. No enlarged lymph nodes. Urinary bladder: Unremarkable as visualized. Reproductive: Unremarkable as visualized. Bones/joints: Unremarkable. No acute fracture. Soft tissues: Unremarkable. CT/CT kidney stone [id number] IMPRESSION: 1. Negative for acute inflammatory process in the abdomen or pelvis. 2. Hepatic steatosis.
[2022-01-22 23:22] LABS: Troponin(5th) Baseline 18 ng/L (0-10)
--- NOTE | 2022-01-22 23:59 | ECG_ITS ---
[facility] Test Date: 2022-01-22 Pat Name: Wen Mcintyre Department: Room: Gender: Female Nursing Professor: : 1980 Requested By: Crescencio Hernandez Order Number: [id number] Tereso MD: Parker Judd M.D. Measurements Intervals [place] Rate: 94 P: 67 AK: 176 QRS: 85 QRSD: 90 T: 34 QT: 380 QTc: 476 Interpretive Statements SINUS RHYTHM POSSIBLE LEFT ATRIAL ENLARGEMENT [-0.1mV P-WAVE IN V1/V2] Compared to ECG 01/22/2022 22:06:27 Sinus tachycardia no longer present Electronically Signed On 01-23-2022 8:17:52 CDT by Parker Judd M.D. [id number]
[2022-01-23] VITALS (26 sets, daily range): BP systolic 95–155; BP diastolic 66–107; PULSE 72–98; RESP 12–34; TEMP 36.8–37.1; O2SAT 93–97
[2022-01-23] MEDS: lactated ringers 1,000 ML 999 ML IV (00:06)
[2022-01-23] MEDS: acetaminophen 500 mg Tablet 1000 MG PO (00:19)
[2022-01-23 00:56] LABS: SARS Covid-2 Antigen negative (Negative)
[2022-01-23 01:31] LABS: Bilirubin Urine Neg (Negative); Blood Urine 3+ (Negative); Glucose Urine UA 1+ (Normal); Ketones Urine Negative (Negative); Leukocyte Esterase Urine 1+ (Negative); Nitrate Urine Negative (Negative); Protein Urine 3+ (Negative); Urine Appearance Clear (CLEAR); Urine Color Yellow (Yellow); Urobilinogen Urine Norm (Negative); pH Urine 7 (5-7)
[2022-01-23 01:32] LABS: Add Urine Microscopic? YES
[2022-01-23 01:33] LABS: Hyaline Casts Urine 0-4 /lpf; RBC Urine 15-25 /hpf (0-2); Squamous Epithelial Cell Urine 0-4 /hpf (0-5)
[2022-01-23 01:34] LABS: Amorphous Sediment Urine 1+ /hpf
[2022-01-23 01:35] LABS: Add Urine Culture? No; Bacteria Urine TRACE /hpf; Fine Granular Casts Urine 0-4 /lpf
--- NOTE | 2022-01-23 01:58 | ECG_ITS ---
[facility] Test Date: 2022-01-23 Pat Name: Wen Mcintyre Department: Room: Gender: Female Major Gifts Director: : 1980 Requested By: Crescencio Hernandez Order Number: [id number] Tereso MD: Jen Rudolph M.D. Measurements Intervals [place] Rate: 80 P: 65 [place]: 206 QRS: 72 QRSD: 86 T: 46 QT: 401 QTc: 465 Interpretive Statements SINUS RHYTHM POSSIBLE LEFT ATRIAL ENLARGEMENT [-0.1mV P-WAVE IN V1/V2] NONSPECIFIC T-WAVE ABNORMALITY Compared to ECG 01/22/2022 23:59:41 T-wave abnormality now present Electronically Signed On 01-24-2022 13:04:48 CDT by Jen Rudolph M.D. [id number]
[2022-01-23 02:39] LABS: Troponin 5 2HR 11.34 ng/L (0-10)
[2022-01-23 02:57] LABS: Troponin 5 2HR Delta -6.66 ABS# (0-10)
--- NOTE | 2022-01-23 03:24 | USR_ITS ---
PROCEDURE INFORMATION: Exam: US Abdomen, Limited; Right Upper Quadrant Exam date and time: 01/23/2022 4:14 AM Age: 41 years old Clinical indication: Other: Chest pain, patient HX: Normal tbili = 0.4. Elevated ast = 83. Elevated alt = 153. Elevated alkphos = 142; Additional info: Transaminitis TECHNIQUE: Imaging protocol: Real time ultrasound of the abdomen with image documentation. Limited exam focused on the right upper quadrant. COMPARISON: CT kidney stone [id number] 01/22/2022 11:14 PM FINDINGS: Liver: Mildly enlarged liver with increased parenchymal echogenicity, most commonly seen in hepatic steatosis, though other forms of parenchymal liver disease could have a similar appearance. This limits evaluation for subtle isoechoic masses but no masses are seen. Patent main portal vein with normal direction of flow. Gallbladder: Normal. No gallstones. There is no gallbladder wall thickening. Negative sonographic Peters's sign. Biliary ducts: Normal. No stones. No dilation. Pancreas: Visualized pancreas is unremarkable. Right kidney: Normal. No mass. No hydronephrosis. Aorta: Unremarkable. US/US abdomen limited [id number] IMPRESSION: Hyperechoic liver, which can be seen with fatty infiltration or hepatocellular disease.
[2022-01-23] MEDS: cefTRIAXone 1,000 MG in sodium chloride 0.9% (plus) 50 ML 100 MG IV ×2 (03:26→08:46)
--- NOTE | 2022-01-23 03:27 | PM.HP ---
Providers/Chief Complaint Primary Care Provider: CARINA Kang Chief Complaint: Stoke Like Symptoms History of Present Illness Wen Mcintyre is a 41 year old female with past medical history of hypertension on lisinopril came in with chief complaint of not feeling well overall since yesterday, she was complaining of tingling and numbness in both the upper extremities, dizziness, also experienced 3 episodes of nonbilious vomiting. She is also complaining of epigastric discomfort, which sounds more like dyspepsia. Patient has been having elevated blood pressure for the last few days, according to her her systolic blood pressures have been in 190s. According to her she has been monitoring her blood pressure lately for medication adjustment as advised by her primary care physician.Patient is also a chronic smoker she smokes roughly 3 packs a week, occasionally drinks alcohol, denies any sick contact, fever chills, shortness of breath, chest pain, palpitation.She also reports recent weight gain. Post Left Bartholin gland marsupialization, for Left Bartholin gland cyst.Which she is currently trying to manage with her diet and exercise. At baseline she is pretty active. Upon arrival in the ER she was noted for above-mentioned complaint. Pertinent imaging studies: CT head wo con: No acute intrcranial pathology CT abdomen and pelvis without contrast: No acute abdominal pelvic pathology, hepatic steatosis. X-ray chest: No infiltrate no effusion no pneumothorax Pertinent labs: WBC 20.9 , H&H: 18/52 , PLT : 301 , sodium 138 potassium 4.3, BUN serum creatinine: 14/2.5 AST 83, ALT 153, ALP 142 Troponin trend: 18-11 COVID-19 antigen negative Review of Systems General: Reports: 10 or more systems reviewed and unremarkable except in HPI and below Const: Denies: fever(s), chills, body aches, change in appetite or diaphoresis Card: Denies: palpitations, edema, swelling of feet/ankles, dyspnea on exertion, orthopnea or leg pain with exertion Resp: Denies: dyspnea, productive cough, wheezing or pain on inspiration GI: Denies: abdominal pain, nausea, vomiting, diarrhea or constipation : Denies: flank pain Musc: Denies: back pain, extremity pain or extremity swelling Neuro: Denies: headache(s), difficulty walking or confusion Medications/Allergies Home Medications Medication Instructions Recorded Confirmed Last Taken Type lisinopril 10 mg tablet 10 mg PO DAILY 12/16/20 11/27/21 10/16/21 History acetaminophen 325 mg capsule 325 mg PO Q4H PRN fever or pain 10/17/21 11/27/21 Unknown Rx #60 caps ibuprofen 800 mg tablet 800 mg PO TID PRN pain #60 tabs 10/17/21 11/27/21 Unknown Rx Allergies Allergy/AdvReac Type Severity Reaction Status Date / Time No Known Allergies Allergy Verified 11/27/21 11:13 PFSH Acute PFSH: Medical History Bartholin gland cyst 10/17/2021- Left bartholin gland marsupialization performed by Dr. Donohue at [facility] Hypertension Surgical History History of delivery x3 - first one due to failure to progress. Family History Mother Anesthesia complication Father Dementia Other Bleeding disorder CAD (coronary artery disease) Cancer Chronic kidney disease (CKD) Clotting disorder Diabetes Hypertension Stroke Denies family history of Hyperlipidemia Psychiatric illness Suicide Lung disease Social History Smoking and tobacco status: current every day smoker Quit status (tobacco): not considering quitting Second hand smoke exposure: Yes Alcohol intake: never Desire information about alcohol rehabilitation?: No Desire information about substance/drug rehabilitation?: No Female Reproductive History: Date of last menstrual period: 01/08/22 Vitals/I&O/Wt Last Vital Signs Temp 98.3 F 01/22/22 21:51 Pulse 82 01/23/22 02:51 Resp 18 01/23/22 02:51 BP 118/81 01/23/22 02:51 Pulse Ox 94 01/23/22 02:51 O2 Del Method 01/22/22 21:51 01/22/22 01/22/22 01/23/22 14:59 22:59 06:59 Intake Total 1000 / 1000 Balance 1000 / 1000 Weight last 48 hrs Weight 89.811 kg Physical Exam Const: COMMON NORMALS: patient oriented x3 HENMT: COMMON NORMALS: normocephalic, atraumatic, hearing grossly normal bilaterally and external ears normal HEAD & SCALP: normocephalic and atraumatic EXTERNAL EAR: Yes external ears normal Eye: COMMON NORMALS: no scleral icterus GENERAL EYE: appearance normal, both eyes and all related structures Chest: COMMONS NORMALS: normal inspection of the chest and normal palpation of entire chest wall CHEST: Yes Symmetrical chest wall rise Resp: COMMON NORMALS: normal respiratory effort, No retractions, No use of accessory muscles and clear to auscultation bilaterally EFFORT & INSPECTION: Yes symmetric chest movement AUSCULTATION: clear to auscultation bilaterally Cardio: COMMON NORMALS: regular rate, regular rhythm, S1 normal heart sound present, S2 normal heart sound present, No gallops present (Cardio), No murmurs present (Cardio), No rub (Cardio) and Peripheral pulses 2+ throughout RATE: regular rate RHYTHM: regular rhythm HEART SOUNDS: S1 normal heart sound present and S2 normal heart sound present PERIPHERAL PULSES: Peripheral pulses 2+ throughout GI: COMMON NORMALS: Normal to inspection, nondistended, normoactive bowel sounds present, Soft to palpation, non-tender, No hepatosplenomegaly present and no masses AUSCULTATION: Yes normoactive bowel sounds PALPATION: Yes Soft to palpation and Yes No hepatosplenomegaly present RECTAL EXAM: deferred : COMMON NORMALS: Yes no CVA tenderness BLADDER/KIDNEY EXAM: Yes no CVA tenderness Back/Pelvis: COMMON NORMALS: no CVA tenderness Extremity: COMMON NORMALS: no clubbing, cyanosis or edema and no pedal edema Neuro: COMMON NORMALS: patient oriented x3 Data : 01/23/22 04:03 01/23/22 04:03 A&P Assessment and plan (1) DEANNA (acute kidney injury): (2) Leukocytosis: (3) Dehydration: (4) Transaminitis: (5) Hypertension: (6) UTI (urinary tract infection): Plan 41 year old female with past medical history of hypertension on lisinopril came in with chief complaint of not feeling well overall since yesterday, she was complaining of tingling and numbness in both the upper extremities, dizziness, also experienced 3 episodes of nonbilious vomiting. She is also complaining of epigastric discomfort, which sounds more like dyspepsia. Assessment: DEANNA Leukocytosis Possible UTI Hypertension Transaminitis : Possibly secondary to cannot conclusively rule out underlying SANCHEZ Obesity Dehydration Plan: Follow blood culture Urine culture Follow ultrasound abdomen Follow renal ultrasound Fena : 2.6 % pointing towards intrarenal pathology UPCR: Most recent reported serum creatinine: 0.8 Monitor intake output charting Avoid nephrotoxic's Follow hepatitis panel, serum acetaminophen level, monitor CMP Continue IV hydration with LR 125 cc an hour Possible renal consult in a.m. Empirically on ceftriaxone. CODE STATUS: Full code DVT prophylaxis: On heparin Attestations Medical Necessity Statement*: Patient is to be in hospital for management of DEANNA, leukocytosis, need for IV hydration. Coding Level of Care Code Acute Plater Production for g Fwd Exam Comprehensive Diagnoses DEANNA (acute kidney injury) N17.9 Leukocytosis D72.829 Dehydration E86.0 Transaminitis R74.01 Hypertension I10 UTI (urinary tract infection) N39.0
[2022-01-23 03:57] LABS: Creatinine Urine, Random 94 mg/dL (28-217)
[2022-01-23] MEDS: lactated ringers 1,000 ML 125 ML IV ×2 (04:02→14:36)
[2022-01-23] MEDS: heparin 5,000 unit/mL INJ 1 mL 5000 UNIT SUBCUT ×2 (04:03→14:27)
[2022-01-23 04:17] LABS: Urine Random Sodium 136 mmol/L
[2022-01-23 04:22] LABS: Basophils # 0.1 10^3/uL (0.0-0.1); Basophils % 0.3 %; Eosinophils % 0.1 %; Hematocrit 46.2 % (37.0-47.0); Hemoglobin 15.9 g/dL (11.5-15.3); Lymphocytes # 1.8 10^3/uL (0.8-4.8); Lymphocytes % 11.8 %; Mean Corpuscular HGB Conc 34.4 g/dL (30.0-36.0); Mean Corpuscular Hemoglobin 31.2 pg (28.0-34.0); Mean Corpuscular Volume 90.8 fl (81-99); Monocytes # 1.1 10^3/uL (0.2-0.9); Monocytes % 7.4 %; Neutrophils # 12.23 10^3/uL (1.8-7.7); Neutrophils % 79.6 %; Nucleated Red Blood Cells % 0 %; Platelet Count 264 10^3/cmm (130-400); Red Blood Count 5.09 10^6/uL (4.1-5.3); Red Cell Distribution Width 14.8 % (12.1-15.1); White Blood Count 15.4 10^3/uL (4.0-10.0)
[2022-01-23 04:29] LABS: Urine Protein Random 833 mg/dL
[2022-01-23 04:34] LABS: INR 1.02 (0.8-1.2)
--- NOTE | 2022-01-23 04:46 | US_ITS ---
WS: [id number] RENAL ULTRASOUND HISTORY: DEANNA COMPARISON: CT 01/22/2022 TECHNIQUE: 2-D and color Doppler imaging of the kidney submitted. Right kidney: 10.2 cm x 4.0 cm x 5.2 cm. Normal echogenicity with no hydronephrosis or mass. Left kidney: 10.9 cm x 6.6 cm x 4.3 cm. Normal echogenicity with no hydronephrosis or mass. Aorta: Normal. Urinary Bladder: Nondistended. US/US renal BI* [id number] IMPRESSION: Normal renal ultrasound.
[2022-01-23 04:47] LABS: Alanine Aminotransferase 123 U/L (0-33); Albumin Level 4.4 g/dL (3.5-5.2); Alkaline Phosphatase 119 U/L (35-105); Anion Gap 22.4 (5-19); Aspartate Amino Transferase 59 U/L (0-32); Blood Urea Nitrogen 16 mg/dL (6-20); Calcium 9.7 mg/dL (8.5-10.5); Carbon Dioxide 23 mmol/L (22-29); Chloride 97 mmol/L (98-107); Globulin 3.5 g/dL (1.3-4.6); Glomerular Filtration Rate 23.1 mL/min (90-130); Glucose 112 mg/dL (65-115); Osmolality Calculated 288 mOsm/kg (285-295); Potassium 4.4 mmol/L (3.5-5.1); Sodium 138 mmol/L (136-145); Total Bilirubin 0.5 mg/dL (0.15-1.2); Total Protein 7.9 g/dL (6.6-8.7)
[2022-01-23 04:55] LABS: Procalcitonin 0.15 ng/mL (0-0.5)
[2022-01-23 05:02] LABS: Hepatitis B Core AB, Total Non-Reactive (Nonreactive); Hepatitis B Surface AB 3.5 (11.5-1000); Hepatitis B Surface Antigen Non-Reactive (Nonreactive); Hepatitis C Virus Antibody Non-Reactive (Nonreactive)
[2022-01-23 05:19] LABS: Acetaminophen < 5.0 ug/mL (10-30); Troponin 5 6HR 10.68 ng/L (0-10); Troponin 5 6HR Delta -7.32 ng/L (0-12)
[2022-01-23] MEDS: acetaminophen 325 mg Tablet 650 MG PO ×2 (05:23→21:41)
[2022-01-23] MEDS: amlodipine 5 mg Tablet PO (08:46)
--- NOTE | 2022-01-23 15:30 | P.CONIM_ITS ---
Providers/Reason For Consult Consulting Physician/Specialty*: Jenny Garcia DO, telenephrology Reason for Consult*: Acute kidney injury Requesting Physician: Janessa Olivares MD Attending Physician: Janessa Olivares MD Primary Care Provider: CARINA Kang History of Present Illness History of Present Illness Wen Mcintyre is a 41 year old female presented to ER for evaluation. [place] fine yesterday morning. A few hours later felt dizzy and sick. + muscle aches, no rash. + decreased urine output Denies recent use of ibuprofen or other NSAIDs. Took tylenol for headache two days ago. Only taking lisinopril. Had bartholin cyst surgery in October. Culture - no growth. sCr 0.8, no proteinuria Medications/Allergies Home Medications Medication Instructions Recorded Confirmed Last Taken Type lisinopril 10 mg tablet 10 mg PO DAILY 12/16/20 01/23/22 10/16/21 History acetaminophen 325 mg capsule 325 mg PO Q4H PRN fever or pain 10/17/21 01/23/22 Unknown Rx #60 caps ibuprofen 800 mg tablet 800 mg PO TID PRN pain #60 tabs 10/17/21 01/23/22 Unknown Rx Allergies Allergy/AdvReac Type Severity Reaction Status Date / Time No Known Allergies Allergy Verified 01/23/22 08:10 Current Medications Generic Name Dose Route Start Last Admin Trade Name Freq PRN Reason Stop Dose Admin Acetaminophen 650 mg 01/23/22 03:21 01/23/22 05:23 Acetaminophen 325 Mg Tablet PO 650 mg Q6H PRN Administration Mild/Mod Pain Or Temp >/= 101 Amlodipine Besylate 5 mg 01/23/22 09:00 01/23/22 08:46 Amlodipine 5 Mg Tablet PO 5 mg DAILY WILMER Administration Heparin Sodium (Porcine) 5,000 unit 01/23/22 03:30 01/23/22 14:27 Heparin 5,000 Unit/Ml Inj 1 Ml SUBCUT 5,000 unit Q12H WILMER Administration Lactated Ringer's 1,000 mls @ 125 mls/hr 01/23/22 03:30 01/23/22 14:36 Lactated Ringers IV 125 mls/hr .Q8H WILMER Administration Ceftriaxone Sodium 1,000 mg/ 50 mls @ 100 mls/hr 01/23/22 08:00 01/23/22 08:46 Sodium Chloride IV 100 mls/hr Q24H WILMER Administration Protocol PFSH Acute PFSH: Medical History Bartholin gland cyst 10/17/2021- Left bartholin gland marsupialization performed by Dr. Donohue at [facility] Hypertension Surgical History History of delivery x3 - first one due to failure to progress. Family History Mother Anesthesia complication Father Dementia Other Bleeding disorder CAD (coronary artery disease) Cancer Chronic kidney disease (CKD) Clotting disorder Diabetes Hypertension Stroke Denies family history of Hyperlipidemia Psychiatric illness Suicide Lung disease Social History Smoking and tobacco status: current every day smoker Quit status (tobacco): not considering quitting Second hand smoke exposure: Yes Alcohol intake: never Desire information about alcohol rehabilitation?: No Desire information about substance/drug rehabilitation?: No Female Reproductive History: Date of last menstrual period: 01/08/22 Vitals/I&O/Wt Last Vital Signs Temp 98.3 F 01/22/22 21:51 Pulse 83 01/23/22 13:43 Resp 12 01/23/22 13:43 BP 145/78 01/23/22 13:43 Pulse Ox 95 01/23/22 13:43 O2 Del Method 01/23/22 14:30 01/23/22 01/23/22 01/23/22 06:59 14:59 22:59 Intake Total 1050 / 1050 1000 / 1000 Output Total 250 / 250 Balance 1050 / 1050 750 / 750 Weight last 48 hrs Weight 89.811 kg Physical Exam Const: COMMON NORMALS: no acute distress and alert Neuro: SENSORIUM/ORIENTATION: Yes alert Data : 01/23/22 04:03 01/23/22 04:03 Other Labs: urinalysis 3+ protein, +RBC, +Wbc, + granular and hylane casts urine Na 136 urine protein/Cr ratio 8800 mg/g + Group A strep rapid + transaminitis Micro: Microbiology 01/23/22 03:18 Blood Culture - Preliminary Blood SPECIMEN COLLECTED 01/23/22 03:16 Blood Culture - Preliminary Blood SPECIMEN COLLECTED US: Radiologist's impression: Right kidney: 10.2 cm x 4.0 cm x 5.2 cm. Normal echogenicity with no hydronephrosis or mass. Left kidney: 10.9 cm x 6.6 cm x 4.3 cm. Normal echogenicity with no hydronephrosis or mass. CT Abd/Pel: Radiologist's impression: Liver: Hepatic steatosis. Gallbladder and bile ducts: Normal. No calcified stones. No ductal dilation. Pancreas: Normal. No ductal dilation. Spleen: Normal. No splenomegaly. Adrenal glands: Normal. No mass. Kidneys and ureters: Normal. No hydronephrosis. Stomach and bowel: Unremarkable. No obstruction. No mucosal thickening. Appendix: No evidence of appendicitis. Intraperitoneal space: Unremarkable. No free air. No significant fluid collection. Vasculature: Unremarkable. No abdominal aortic aneurysm. Lymph nodes: Unremarkable. No enlarged lymph nodes. Urinary bladder: Unremarkable as visualized. Reproductive: Unremarkable as visualized. Bones/joints: Unremarkable. No acute fracture. Soft tissues: Unremarkable. A&P Assessment and plan (1) DEANNA (acute kidney injury): seen via telemedicine with assistance of RN at bedside Plan 1. Acute oliguric kidney injury associated with proteinuria and hematuria, likely acute glomerulonephritis, possible post-Strep GN 2. Hypertension, chronic Recommend: agree with discontinue lisinopril, decrease IVF hydration. Serologic work-up ordered. May need renal biopsy. Continue ceftriaxone pending culture results. Consult Attestations Medical Necessity Statement: see above Time Spent in Patient Care: 16 - 35 minutes Coding Level of Care Code Acute Behavioral Assistant for [facility] Carina Diagnoses DEANNA (acute kidney injury) N17.9
[2022-01-23] MEDS: nicotine 14 mg Patch 1 PATCH TRANSDERMA (15:50)
[2022-01-23 16:31] LABS: Creatine Phosphokinase 207 U/L (26-192); Magnesium 2.2 mg/dL (1.7-2.3); Phosphorus 3.3 mg/dL (2.5-4.5)
--- NOTE | 2022-01-23 16:40 | PM.MISC ---
Miscellaneous Note Note: Seen this morning. Patient states that she has had very low urine output in the last 1 to 2 days. He is also having vomiting. No diarrhea. She thought her blood pressure was high when she came to the hospital however it was normal. He states this is all new for her and she is unsure what is going on. She does feel better today. She is severely concerned that she has not had any urine output since last night despite having so many IV fluids and oral intake. Ordered Monreal catheter for accurate output. Agree with admitting physician that this is intrarenal cause. Will consult nephrology. Patient perhaps will need a kidney biopsy. All work-up pending for glomerulonephritis.
[2022-01-23 17:30] LABS: CKMB 2.6 ng/mL (0-5.34)
[2022-01-23 22:11] LABS: Complement C3 171 mg/dL (90-180)
[2022-01-23] MEDS: ondansetron 2 mg/ML SDV 2 mL 4 MG IVP (23:57)
[2022-01-24] VITALS (8 sets, daily range): BP systolic 137–178; BP diastolic 88–124; PULSE 60–82; RESP 15–18; TEMP 36.6–37.1; O2SAT 95–97
[2022-01-24] MEDS: amlodipine 5 mg Tablet PO ×2 (00:51→11:26)
[2022-01-24] MEDS: lactated ringers 1,000 ML 50 ML IV (00:51)
[2022-01-24] MEDS: heparin 5,000 unit/mL INJ 1 mL 5000 UNIT SUBCUT ×2 (03:41→16:26)
[2022-01-24 05:44] LABS: Basophils % 0.5 %; Eosinophils # 0.1 10^3/uL (0.0-0.8); Eosinophils % 1.4 %; Hematocrit 43.4 % (37.0-47.0); Hemoglobin 14.8 g/dL (11.5-15.3); Lymphocytes # 1.6 10^3/uL (0.8-4.8); Lymphocytes % 27.8 %; Mean Corpuscular HGB Conc 34.1 g/dL (30.0-36.0); Mean Corpuscular Hemoglobin 31.6 pg (28.0-34.0); Mean Corpuscular Volume 92.5 fl (81-99); Mean Platelet Volume 10.5 fL (7.4-10.4); Monocytes # 0.7 10^3/uL (0.2-0.9); Neutrophils # 3.47 10^3/uL (1.8-7.7); Neutrophils % 58.8 %; Nucleated Red Blood Cells % 0 %; Platelet Count 182 10^3/cmm (130-400); Red Blood Count 4.69 10^6/uL (4.1-5.3); Red Cell Distribution Width 14.7 % (12.1-15.1); White Blood Count 5.9 10^3/uL (4.0-10.0)
[2022-01-24 05:54] LABS: INR 0.96 (0.8-1.2)
[2022-01-24 05:56] LABS: Estmated Average Glucose 120; Hemoglobin A1C 5.8 % (4.0-6.0)
[2022-01-24 06:10] LABS: Procalcitonin 0.06 ng/mL (0-0.5); Thyroid Stimulating Hormone 5.68 uIU/mL (0.27-4.20)
[2022-01-24 06:21] LABS: Alanine Aminotransferase 96 U/L (0-33); Albumin Level 3.7 g/dL (3.5-5.2); Alkaline Phosphatase 110 U/L (35-105); Blood Urea Nitrogen 15 mg/dL (6-20); Calcium 9.3 mg/dL (8.5-10.5); Carbon Dioxide 24 mmol/L (22-29); Chloride 97 mmol/L (98-107); Chol HDL Ratio 7.13 mg/dL (0.0-4.40); Cholesterol 214 mg/dL (0-200); Glomerular Filtration Rate 54.2 mL/min (90-130); Glucose 108 mg/dL (65-115); HDL Cholesterol 30 mg/dL (60-100); LDL Cholesterol Calculated 105 mg/dL (50-129); Osmolality Calculated 277 mOsm/kg (285-295); Sodium 133 mmol/L (136-145); Total Bilirubin 0.2 mg/dL (0.15-1.2); Total Protein 6.7 g/dL (6.6-8.7); Triglycerides 393 mg/dL (0-150)
[2022-01-24 06:30] LABS: Anion Gap 15.8 (5-19); Potassium 3.8 mmol/L (3.5-5.1)
[2022-01-24 06:31] LABS: Aspartate Amino Transferase 52 U/L (0-32)
[2022-01-24] MEDS: cefTRIAXone 1,000 MG in sodium chloride 0.9% (plus) 50 ML 100 MG IV (08:33)
[2022-01-24] MEDS: nicotine 14 mg Patch 1 PATCH TRANSDERMA ×2 (08:33→18:18)
--- NOTE | 2022-01-24 08:39 | PM.PN ---
Subjective Subjective: feels better, mild headache Vitals/I&O/Wt Last Vital Signs Temp 98.2 F 01/24/22 07:49 Pulse 65 01/24/22 07:49 Resp 15 01/24/22 07:49 BP 137/90 01/24/22 07:49 Pulse Ox 96 01/24/22 07:49 O2 Del Method 01/24/22 07:49 01/23/22 01/24/22 01/24/22 22:59 06:59 14:59 Intake Total 220.833 / 1270.833 424.167 / 1695.000 Output Total 600 / 850 650 / 1500 Balance -379.167 / 420.833 -225.833 / 195.000 Weight last 48 hrs Weight 89.811 kg Physical Exam Const: COMMON NORMALS: no acute distress and alert Extremity: GENERAL: No edema Neuro: SENSORIUM/ORIENTATION: Yes alert Data : 01/24/22 05:10 01/24/22 05:10 Micro: Microbiology 01/23/22 03:18 Blood Culture - Preliminary Blood NEGATIVE TO DATE 01/23/22 03:16 Blood Culture - Preliminary Blood NEGATIVE TO DATE A&P Assessment and plan (1) DEANNA (acute kidney injury): seen via telemedicine with assistance of RN at bedside Plan 1. Acute oliguric kidney injury associated with proteinuria and hematuria, possible acute glomerulonephritis. Significant improvement in renal function overnight. Complements normal. Serologic workup pending. 2. Hypertension, chronic Recommend: remain off lisinopril for now, discontinue IVF hydration. repeat urinalysis, urine protein/Cr ratio. Continue ceftriaxone pending culture results. Will discuss with hospitalist. Possible discharge with quick outpatient nephrology follow-up. 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
[2022-01-24] MEDS: acetaminophen 325 mg Tablet 650 MG PO ×2 (09:35→18:19)
[2022-01-24 09:54] LABS: Bilirubin Urine Neg (Negative); Blood Urine Neg (Negative); Glucose Urine UA Norm (Normal); Ketones Urine Negative (Negative); Leukocyte Esterase Urine 2+ (Negative); Nitrate Urine Negative (Negative); Protein Urine Neg (Negative); Specific Gravity, Urine 1.015 (1.005-1.030); Urine Appearance Clear (CLEAR); Urine Color Yellow (Yellow); Urobilinogen Urine Neg (Negative); pH Urine 6 (5-7)
[2022-01-24 10:07] LABS: Creatinine Urine, Random 112 mg/dL (28-217)
[2022-01-24 10:12] LABS: Bacteria Urine 1+ /hpf; RBC Urine 0-4 /hpf (0-2); Trichomonas Urine 1+ /hpf; WBC Urine 0-4 /hpf (0-5)
[2022-01-24 10:13] LABS: Add Urine Culture? No; Urine Protein Random 13 mg/dL
[2022-01-24 10:18] LABS: Anti-streptolysin O 60 IU/mL (<200)
--- NOTE | 2022-01-24 10:33 | PC.CHAP ---
Pastoral Care Encounter/Spiritual Assessment Type of Contact [] Declined phys ther visit [] Patient/Family/Request visit [] Outpatient visit [] Follow-up visit [] Physician referral [] Code/Alert [x] Routine visit [] Staff referral [] Actively dying [] Patient sleeping [] Family support [] [] Out of room [] Palliative care [] [x] Receiving care in room [] Pre-surgical visit [] Trauma [] Long length of stay [] ICU visit [] Other: Relational/Emotional Strength [x] Patient feels connected with others/family/visitors/staff [] Distress [] Loneliness/isolation [] Abandonment Spirituality of Patient [x] Person of Gabrielle [] Attends Protestant of their Gabrielle [x] Believes in Prayer [] Reads Bible or Religion materials [] There are Spiritual issues to be addressed Lime Hide Inspector Interventions [x] Prayer [x] Active listening [x] Non-anxious presence [x] Spiritual/emotional support [] Crisis/trauma care [x] Spiritual counseling [] Bereavement support [] Provided bereavement packet [] Provided Bible/devotional materials [] Provided toy/stuffed animal, coloring book to patient or family member [] Provided Communion [] Anointing/[place] [] Salvation [x] Completed spiritual assessment [] Other: Impact on Illness or Injury [] Angry [] Fearful [x] Anxious [] Often cries [] Exhaustion [] Unable to work [] Unable to attend taoism [] Unable to walk/stand [] Unable to read [] Unable to drive [] Unable to eat/drink [] Unable to sleep [] Unable to be with family [] Patient intubated [] Other: Summary heart feeling better has a good attitude well be going soon Time spent with patient 10 mins
[2022-01-24 10:36] LABS: PROTEIN, TOTAL 7.6 g/dL (6.1-8.1)
--- NOTE | 2022-01-24 12:14 | MR_ITS ---
WS: [id number] MRI HEAD WITH CONTRAST TECHNIQUE: Sagittal T1, T2 axial, T2 axial FLAIR, axial susceptibility weighted imaging, axial diffus ion weighted images, and coronal T2 images were obtained. Pre and post-T1 axial and post T1 coronal i mages. ADC and FSPGR images. CLINICAL INFORMATION: r/o PRESS syndrome COMPARISON: CT January 22, 2022 FINDINGS: No evidence of restricted diffusion to suggest acute ischemia. Ventricular system and basal cisterns are patent. No suspicious intracranial signal abnormalities. Normal kahn-white differentiation. No hy drocephalus. Normal posterior fossa. Normal vascular flow voids at the skull base. No extra axial flu id collections. No evidence of mass or mass effect. Paranasal sinuses and mastoid air cells are well aerated. No hemosiderin on susceptibly weighted images. Normal optic chiasm and pituitary infundibulum. Tempor al lobes hippocampal formations are normal in appearance. Normal cavernous sinuses and Meckel's cave. No abnormal gadolinium enhancement. Incidental enhancing venous angioma in the LEFT frontal lobe. No rmal visualized dural venous sinuses. No other remarkable findings. MR/MR head wo/w con [id number] IMPRESSION: 1. No evidence of restricted diffusion to suggest acute ischemia. 2. No suspicious intracranial signal abnormalities. No evidence of posterior r eversible encephalopathy syndrome. 3. No abnormal intracranial enhancement. 4. No hemosiderin on the susceptibility weighted images. 5. No hydrocephalus. 6. Incidental benign enhancing venous angioma in the LEFT frontal white matter .
[2022-01-24 13:12] LABS: KAPPA LIGHT CHAIN, FREE, SERUM 23.9 mg/L (3.3-19.4); KAPPA/LAMBDA LIGHT CHAINS FREE 1.45 (0.26-1.65); LAMBDA LIGHT CHAIN, FREE, SERU 16.5 mg/L (5.7-26.3)
[2022-01-24 16:43] LABS: ALBUMIN 4.4 g/dL (3.8-4.8); ALPHA 1 GLOBULIN 0.3 g/dL (0.2-0.3); ALPHA 2 GLOBULIN 0.9 g/dL (0.5-0.9); BETA 1 GLOBULIN 0.5 g/dL (0.4-0.6); BETA 2 GLOBULIN 0.4 g/dL (0.2-0.5); GAMMA GLOBULIN 1.1 g/dL (0.8-1.7)
[2022-01-24] MEDS: gadobenate dimeglumine 20 mL vial IV (16:52)
[2022-01-24 17:56] LABS: Amphetamines Screen Urine Negative (Negative); Barbiturates Screen Urine Negative (Negative); Benzodiazepines Screen Urine Negative (Negative); Cocaine Screen Urine Negative (Negative); Opiate Screen Urine Negative (Negative); PCP Screen Urine Negative (Negative); THC Screen Urine Negative (Negative)
[2022-01-24] MEDS: hyDRALAzine 25 mg Tablet PO ×2 (18:18→20:35)
[2022-01-24] MEDS: sodium chloride 0.9% 500 ML 999 ML IV (18:19)
--- NOTE | 2022-01-24 18:58 | PM.PN ---
Subjective Subjective: seen this am pt to go for MRI today will need fluids pre and post BP trending higher as well pt overall feeling better but has headache Vitals/I&O/Wt Last Vital Signs Temp 98.0 F 01/24/22 16:00 Pulse 81 01/24/22 16:00 Resp 16 01/24/22 16:00 BP 178/91 01/24/22 16:00 Pulse Ox 96 01/24/22 16:00 O2 Del Method 01/24/22 16:00 01/24/22 01/24/22 01/24/22 06:59 14:59 22:59 Intake Total 424.167 / 1695.000 410 / 410 240 / 650 Output Total 650 / 1500 250 / 250 Balance -225.833 / 195.000 160 / 160 240 / 400 Weight last 48 hrs Weight 89.811 kg Physical Exam Const: COMMON NORMALS: patient oriented x3 HENMT: COMMON NORMALS: normocephalic, atraumatic, hearing grossly normal bilaterally and external ears normal HEAD & SCALP: normocephalic and atraumatic EXTERNAL EAR: Yes external ears normal Eye: COMMON NORMALS: no scleral icterus GENERAL EYE: appearance normal, both eyes and all related structures Chest: COMMONS NORMALS: normal inspection of the chest and normal palpation of entire chest wall CHEST: Yes Symmetrical chest wall rise Resp: COMMON NORMALS: normal respiratory effort, No retractions, No use of accessory muscles and clear to auscultation bilaterally EFFORT & INSPECTION: Yes symmetric chest movement AUSCULTATION: clear to auscultation bilaterally Cardio: COMMON NORMALS: regular rate, regular rhythm, S1 normal heart sound present, S2 normal heart sound present, No gallops present (Cardio), No murmurs present (Cardio), No rub (Cardio) and Peripheral pulses 2+ throughout RATE: regular rate RHYTHM: regular rhythm HEART SOUNDS: S1 normal heart sound present and S2 normal heart sound present PERIPHERAL PULSES: Peripheral pulses 2+ throughout GI: COMMON NORMALS: Normal to inspection, nondistended, normoactive bowel sounds present, Soft to palpation, non-tender, No hepatosplenomegaly present and no masses AUSCULTATION: Yes normoactive bowel sounds PALPATION: Yes Soft to palpation and Yes No hepatosplenomegaly present RECTAL EXAM: deferred : COMMON NORMALS: Yes no CVA tenderness BLADDER/KIDNEY EXAM: Yes no CVA tenderness Back/Pelvis: COMMON NORMALS: no CVA tenderness Extremity: COMMON NORMALS: no clubbing, cyanosis or edema and no pedal edema Neuro: COMMON NORMALS: patient oriented x3 Data : 01/24/22 05:10 01/24/22 05:10 Micro: Microbiology 01/23/22 03:18 Blood Culture - Preliminary Blood NEGATIVE TO DATE 01/23/22 03:16 Blood Culture - Preliminary Blood NEGATIVE TO DATE A&P Assessment and plan (1) DEANNA (acute kidney injury): (2) Leukocytosis: (3) Dehydration: (4) Transaminitis: (5) Hypertension: (6) UTI (urinary tract infection): Plan 41 year old female with past medical history of hypertension on lisinopril came in with chief complaint of not feeling well overall since yesterday, she was complaining of tingling and numbness in both the upper extremities, dizziness, also experienced 3 episodes of nonbilious vomiting. She is also complaining of epigastric discomfort, which sounds more like dyspepsia. Assessment: DEANNA, oliguric, possible acute GN Leukocytosis Possible UTI Hypertension Transaminitis : Possibly secondary to cannot conclusively rule out underlying ASNCHEZ Obesity Dehydration Plan: BCX NTD, UCx pending MRI today to r/o PRESS Will need pre and post IV hydration BP trending higher place on amlodipine 10 daily Hydralazine 25 TID added. Will need to be monitored IV hydralazine 10 ordered this evening. MRI negative. Continue IV hydration with NS 75 cc/hr Nephro consulted. recommendations appreciated pt will need nephro f/u at dc complete 7 days of abx total. ceftriaxone while in hospital switch to cefpodoxime at dc CODE STATUS: Full code DVT prophylaxis: On heparin Attestations Medical Necessity Statement*: Patient will need continued hospitalization for management of hypertension. She is requiring IV BP medicine. Possible DC in AM. 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
[2022-01-24] MEDS: hyDRALAzine 20 mg/mL INJ 1 mL 5 MG IVP (19:31)
[2022-01-24] MEDS: ondansetron 2 mg/ML SDV 2 mL 4 MG IVP (19:35)
[2022-01-25] VITALS (9 sets, daily range): BP systolic 126–202; BP diastolic 78–132; PULSE 60–104; RESP 16–20; TEMP 36.4–37.1; O2SAT 94–98
[2022-01-25] MEDS: heparin 5,000 unit/mL INJ 1 mL 5000 UNIT SUBCUT ×2 (03:18→15:27)
[2022-01-25 04:17] LABS: Basophils % 0.5 %; Eosinophils # 0.1 10^3/uL (0.0-0.8); Eosinophils % 2.2 %; Hematocrit 46.1 % (37.0-47.0); Lymphocytes # 1.7 10^3/uL (0.8-4.8); Lymphocytes % 27.8 %; Mean Corpuscular HGB Conc 32.5 g/dL (30.0-36.0); Mean Corpuscular Hemoglobin 30.8 pg (28.0-34.0); Mean Corpuscular Volume 94.7 fl (81-99); Monocytes # 0.8 10^3/uL (0.2-0.9); Monocytes % 12.9 %; Neutrophils # 3.34 10^3/uL (1.8-7.7); Neutrophils % 55.8 %; Nucleated Red Blood Cells % 0 %; Platelet Count 221 10^3/cmm (130-400); Red Blood Count 4.87 10^6/uL (4.1-5.3); Red Cell Distribution Width 14.5 % (12.1-15.1)
[2022-01-25 04:34] LABS: Alanine Aminotransferase 112 U/L (0-33); Albumin Level 3.9 g/dL (3.5-5.2); Alkaline Phosphatase 115 U/L (35-105); Anion Gap 16.1 (5-19); Aspartate Amino Transferase 63 U/L (0-32); Blood Urea Nitrogen 12 mg/dL (6-20); Calcium 9.2 mg/dL (8.5-10.5); Carbon Dioxide 24 mmol/L (22-29); Chloride 100 mmol/L (98-107); Globulin 3.1 g/dL (1.3-4.6); Glomerular Filtration Rate 68.3 mL/min (90-130); Glucose 114 mg/dL (65-115); Osmolality Calculated 283 mOsm/kg (285-295); Potassium 4.1 mmol/L (3.5-5.1); Sodium 136 mmol/L (136-145); Total Bilirubin 0.2 mg/dL (0.15-1.2)
[2022-01-25] MEDS: nicotine 14 mg Patch 1 PATCH TRANSDERMA (08:44)
[2022-01-25] MEDS: amlodipine 10 mg Tablet PO (08:45)
[2022-01-25] MEDS: hyDRALAzine 25 mg Tablet PO (08:45)
[2022-01-25] MEDS: cefTRIAXone 1,000 MG in sodium chloride 0.9% (plus) 50 ML 100 MG IV (08:45)
[2022-01-25] MEDS: acetaminophen 325 mg Tablet 650 MG PO ×2 (11:35→18:36)
[2022-01-25] MEDS: hyDRALAzine 20 mg/mL INJ 1 mL 10 MG IVP (12:57)
[2022-01-25 14:02] LABS: Complement Total (CH50) >60 U/mL (31-60)
--- NOTE | 2022-01-25 14:43 | PM.PN ---
Subjective Subjective: Seen this morning. Patient was to be discharged today but right before discharge her blood pressure went up to 200/120. Repeat pressure was similar. It was rechecked a little while later and it was similar again. Oral medications were adjusted. She was given hydralazine 10 IV x1. She is currently being monitored. Discharge canceled for today. Patient also complained of a headache when blood pressure was high. Vitals/I&O/Wt Last Vital Signs Temp 98.5 F 01/25/22 12:00 Pulse 84 01/25/22 12:00 Resp 18 01/25/22 12:00 BP 160/96 01/25/22 12:00 Pulse Ox 96 01/25/22 12:00 O2 Del Method 01/25/22 12:00 01/24/22 01/25/22 01/25/22 22:59 06:59 14:59 Intake Total 1240.0 / 1650.0 600 / 2250.0 650 / 650 Balance 1240.0 / 1400.0 600 / 2000.0 650 / 650 Physical Exam Const: COMMON NORMALS: patient oriented x3 HENMT: COMMON NORMALS: normocephalic, atraumatic, hearing grossly normal bilaterally and external ears normal HEAD & SCALP: normocephalic and atraumatic EXTERNAL EAR: Yes external ears normal Eye: COMMON NORMALS: no scleral icterus GENERAL EYE: appearance normal, both eyes and all related structures Chest: COMMONS NORMALS: normal inspection of the chest and normal palpation of entire chest wall CHEST: Yes Symmetrical chest wall rise Resp: COMMON NORMALS: normal respiratory effort, No retractions, No use of accessory muscles and clear to auscultation bilaterally EFFORT & INSPECTION: Yes symmetric chest movement AUSCULTATION: clear to auscultation bilaterally Cardio: COMMON NORMALS: regular rate, regular rhythm, S1 normal heart sound present, S2 normal heart sound present, No gallops present (Cardio), No murmurs present (Cardio), No rub (Cardio) and Peripheral pulses 2+ throughout RATE: regular rate RHYTHM: regular rhythm HEART SOUNDS: S1 normal heart sound present and S2 normal heart sound present PERIPHERAL PULSES: Peripheral pulses 2+ throughout GI: COMMON NORMALS: Normal to inspection, nondistended, normoactive bowel sounds present, Soft to palpation, non-tender, No hepatosplenomegaly present and no masses AUSCULTATION: Yes normoactive bowel sounds PALPATION: Yes Soft to palpation and Yes No hepatosplenomegaly present RECTAL EXAM: deferred : COMMON NORMALS: Yes no CVA tenderness BLADDER/KIDNEY EXAM: Yes no CVA tenderness Back/Pelvis: COMMON NORMALS: no CVA tenderness Extremity: COMMON NORMALS: no clubbing, cyanosis or edema and no pedal edema Neuro: COMMON NORMALS: patient oriented x3 Data : 01/25/22 03:55 01/25/22 03:55 A&P Assessment and plan (1) DEANNA (acute kidney injury): (2) Leukocytosis: (3) Dehydration: (4) Transaminitis: (5) Hypertension: (6) UTI (urinary tract infection): Plan 41 year old female with past medical history of hypertension on lisinopril came in with chief complaint of not feeling well overall since yesterday, she was complaining of tingling and numbness in both the upper extremities, dizziness, also experienced 3 episodes of nonbilious vomiting. She is also complaining of epigastric discomfort, which sounds more like dyspepsia. Assessment: DEANNA, oliguric, possible acute GN?resolved Leukocytosis?resolved Possible UTI?currently being treated Hypertensive urgency Transaminitis : Possibly secondary to cannot conclusively rule out underlying SANCHEZ?resolved Obesity Dehydration?resolved Plan: BCX NTD, UCx pending MRI unremarkable. Amlodipine 10 mg daily. Increase dose of hydralazine to 75 3 times daily. Hydralazine 10 IV reordered this morning. Continue to monitor patient DC IV fluids Complete 7 days of antibiotics total. switch to cefpodoxime at dc Follow-up with nephrology outpatient CODE STATUS: Full code DVT prophylaxis: On heparin Attestations Medical Necessity Statement*: Patient will need continued hospitalization for management of hypertensive urgency. she is requiring IV BP medicine. Will need medication adjustments. Patient will need to be under inpatient status at this point. Coding Level of Care Code Acute Lang Interpreter for [facility] Diagnoses DEANNA (acute kidney injury) N17.9 Leukocytosis D72.829 Dehydration E86.0 Transaminitis R74.01 Hypertension I10 UTI (urinary tract infection) N39.0
[2022-01-25] MEDS: hyDRALAzine 25 mg Tablet 75 MG PO ×2 (15:25→20:49)
[2022-01-25] MEDS: cetirizine 10 mg Tablet PO (20:49)
[2022-01-25 21:49] LABS: Glucose Point of Care 122 mg/dL (70-110)
[2022-01-25] MEDS: acetaminophen-codeine 300-30mg Tablet 1 TAB PO (23:34)
[2022-01-26 04:00] VITALS: BP 121/80; PULSE 83; RESP 20; TEMP 36.3; O2SAT 98
[2022-01-26 05:43] LABS: Basophils # 0.1 10^3/uL (0.0-0.1); Basophils % 0.8 %; Eosinophils # 0.1 10^3/uL (0.0-0.8); Eosinophils % 1.5 %; Hematocrit 48.3 % (37.0-47.0); Hemoglobin 16.3 g/dL (11.5-15.3); Lymphocytes # 1.4 10^3/uL (0.8-4.8); Lymphocytes % 21.8 %; Mean Corpuscular HGB Conc 33.7 g/dL (30.0-36.0); Mean Corpuscular Hemoglobin 31.2 pg (28.0-34.0); Mean Corpuscular Volume 92.5 fl (81-99); Monocytes # 0.7 10^3/uL (0.2-0.9); Neutrophils # 4.13 10^3/uL (1.8-7.7); Nucleated Red Blood Cells % 0 %; Platelet Count 235 10^3/cmm (130-400); Red Blood Count 5.22 10^6/uL (4.1-5.3); Red Cell Distribution Width 14.4 % (12.1-15.1); White Blood Count 6.5 10^3/uL (4.0-10.0)
[2022-01-26 06:06] LABS: Alanine Aminotransferase 162 U/L (0-33); Albumin Level 4.1 g/dL (3.5-5.2); Alkaline Phosphatase 114 U/L (35-105); Anion Gap 16.3 (5-19); Aspartate Amino Transferase 85 U/L (0-32); Blood Urea Nitrogen 13 mg/dL (6-20); Calcium 9.4 mg/dL (8.5-10.5); Carbon Dioxide 22 mmol/L (22-29); Chloride 101 mmol/L (98-107); Globulin 3.3 g/dL (1.3-4.6); Glomerular Filtration Rate 78.3 mL/min (90-130); Glucose 108 mg/dL (65-115); Osmolality Calculated 281 mOsm/kg (285-295); Potassium 4.3 mmol/L (3.5-5.1); Sodium 135 mmol/L (136-145); Total Bilirubin 0.4 mg/dL (0.15-1.2); Total Protein 7.4 g/dL (6.6-8.7)
[2022-01-26 06:31] LABS: Glucose Point of Care 116 mg/dL (70-110)
[2022-01-26 08:00] VITALS: BP 128/81; BP 138/88; PULSE 86; PULSE 93; RESP 15; TEMP 36.7; O2SAT 96
[2022-01-26] MEDS: nicotine 14 mg Patch 1 PATCH TRANSDERMA (10:23)
[2022-01-26] MEDS: cefTRIAXone 1,000 MG in sodium chloride 0.9% (plus) 50 ML 100 MG IV (10:24)
[2022-01-26] MEDS: amlodipine 10 mg Tablet PO (10:24)
[2022-01-26] MEDS: hyDRALAzine 25 mg Tablet 75 MG PO (10:24)
--- NOTE | 2022-01-26 11:51 | P.PN_ITS ---
Subjective Subjective: was not discharged yesterday due to very high BP she is asymptomatic hydralazine added, BP better Vitals/I&O/Wt Last Vital Signs Temp 98.1 F 01/26/22 08:00 Pulse 86 01/26/22 08:00 Resp 15 01/26/22 08:00 BP 128/81 01/26/22 08:00 Pulse Ox 96 01/26/22 08:00 O2 Del Method 01/26/22 08:00 01/25/22 01/26/22 01/26/22 22:59 06:59 14:59 Intake Total 490 / 1140 120 / 120 Balance 490 / 1140 120 / 120 Weight last 48 hrs Weight 87.317 kg Physical Exam Const: COMMON NORMALS: no acute distress and alert Neuro: SENSORIUM/ORIENTATION: Yes alert Data : 01/26/22 05:25 01/26/22 05:25 A&P Assessment and plan (1) DEANNA (acute kidney injury): seen via telemedicine with assistance of RN at bedside Plan 1.Episodic severe hypertension, rule-out secondary causes including hyperaldosteronism, pheochromocytoma, sleep apnea, fibrouscular dysplasia. This workup can be completed as outpatient. 2. Acute oliguric kidney injury associated with proteinuria and hematuria,resolved. Recommend: remain off lisinopril for now. Can discharge with outpatient nephrology follow-up. Attestations Medical Necessity Statement*: see above Time Spent in Patient Care: 16 - 35 minutes Coding Level of Care Code Acute Health Informatics Advisor for [facility] Diagnoses DEANNA (acute kidney injury) N17.9
[2022-01-26 11:59] VITALS: BP 138/88; PULSE 93; RESP 15; TEMP 36.7; O2SAT 96
--- NOTE | 2022-01-26 12:49 | PC.NURSE ---
Discharge discussed with patient and friend. New medications, follow up appointments and stopped medications. Verbalized understanding.
[2022-01-26 13:06] VITALS: BP 138/88; PULSE 93; RESP 15; TEMP 36.7; O2SAT 96
[2022-01-26 14:27] LABS: ANCA Screen NEGATIVE (NEGATIVE)
--- NOTE | 2022-01-26 17:25 | PM.DCS ---
Discharge Providers Date of Admission: 01/23/22 12:27 Date of Discharge: January 24, 2022 Attending Provider at Admission: Wilbur Ureña MD Attending Provider at Discharge: Janessa Oilvares MD Primary Care Provider: CARINA Kang Diagnoses at Discharge Discharge Diagnosis (1) DEANNA (acute kidney injury): Status: Acute Reason for Visit Reason for Visit: Stoke Like Symptoms Brief History: As per Dr. Ureña Wen Mcintyre is a 41 year old female with past medical history of hypertension on lisinopril came in with chief complaint of not feeling well overall since yesterday, she was complaining of tingling and numbness in both the upper extremities, dizziness, also experienced 3 episodes of nonbilious vomiting.? She is also complaining of epigastric discomfort, which sounds more like dyspepsia. Patient has been having elevated blood pressure for the last few days, according to her her systolic blood pressures have been in 190s.? According to her she has been monitoring her blood pressure lately for medication adjustment as advised by her primary care physician.Patient is also a chronic smoker she smokes roughly 3 packs a week, occasionally drinks alcohol, denies any sick contact, fever chills, shortness of breath, chest pain, palpitation.She also reports recent weight gain.? Post Left Bartholin gland marsupialization, for Left Bartholin gland cyst.Which she is currently trying to manage with her diet and exercise. At baseline she is pretty active. Upon arrival in the ER she was noted for above-mentioned complaint. Pertinent imaging studies: CT head wo con: No acute intrcranial pathology CT abdomen and pelvis without contrast: No acute abdominal pelvic pathology, hepatic steatosis. X-ray chest: No infiltrate no effusion no pneumothorax Pertinent labs: WBC 20.9 , H&H: 18/52 , PLT : 301 , sodium 138 potassium 4.3, BUN serum creatinine: 14/2.5 AST 83, ALT 153, ALP 142 Troponin trend: 18-11 COVID-19 antigen negative Hospital Course Hospital Course Patient admitted for DEANNA, oliguric possible acute urinary nephritis which was resolved. Leukocytosis resolved. Possible UTI which was treated with ceftriaxone and transition to oral medication at discharge. Transaminitis also resolved by itself. She was dehydrated on admission which also resolved with IV fluids. Blood cultures negative to date. Urine culture did not show growth. She was started on amlodipine 10 mg daily and hydralazine 25 3 times daily. Blood pressure stayed stable during hospital course however right at time of discharge whenever 200/120 and required multiple pushes of IV hydralazine. MRI head was also done: 1.? No evidence of restricted diffusion to suggest acute ischemia. 2.? No suspicious intracranial signal abnormalities. No evidence of posterior reversible encephalopathy syndrome. 3.? No abnormal intracranial enhancement. 4.? No hemosiderin on the susceptibility weighted images. 5.? No hydrocephalus. 6.? Incidental benign enhancing venous angioma in the LEFT frontal white matter. Patient recommended to follow-up with nephrology and neurology at discharge. Discussed her hospital course with her. She is to complete her antibiotics outpatient. Ultimately medications were adjusted. She was also seen by nephrology during hospital stay. Patient to avoid NSAIDs and lisinopril. She has been asked to keep a strict log of her blood pressures at home and to take to her primary care doctor for further adjustment of medications. We also talked to her about skipping doses of hydralazine versus cutting down after discussion with her primary care doctor if her blood pressure starts to be too low on new regimen. Recommend to have outpatient work-up of secondary causes of hypertension. Patient to see primary care doctor. We will send a copy of discharge summary to primary care. Physical Exam Const: COMMON NORMALS: patient oriented x3 HENMT: COMMON NORMALS: normocephalic, atraumatic, hearing grossly normal bilaterally and external ears normal HEAD & SCALP: normocephalic and atraumatic EXTERNAL EAR: Yes external ears normal Eye: COMMON NORMALS: no scleral icterus GENERAL EYE: appearance normal, both eyes and all related structures Chest: COMMONS NORMALS: normal inspection of the chest and normal palpation of entire chest wall CHEST: Yes Symmetrical chest wall rise Resp: COMMON NORMALS: normal respiratory effort, No retractions, No use of accessory muscles and clear to auscultation bilaterally EFFORT & INSPECTION: Yes symmetric chest movement AUSCULTATION: clear to auscultation bilaterally Cardio: COMMON NORMALS: regular rate, regular rhythm, S1 normal heart sound present, S2 normal heart sound present, No gallops present (Cardio), No murmurs present (Cardio), No rub (Cardio) and Peripheral pulses 2+ throughout RATE: regular rate RHYTHM: regular rhythm HEART SOUNDS: S1 normal heart sound present and S2 normal heart sound present PERIPHERAL PULSES: Peripheral pulses 2+ throughout GI: COMMON NORMALS: Normal to inspection, nondistended, normoactive bowel sounds present, Soft to palpation, non-tender, No hepatosplenomegaly present and no masses AUSCULTATION: Yes normoactive bowel sounds PALPATION: Yes Soft to palpation and Yes No hepatosplenomegaly present RECTAL EXAM: deferred : COMMON NORMALS: Yes no CVA tenderness BLADDER/KIDNEY EXAM: Yes no CVA tenderness Back/Pelvis: COMMON NORMALS: no CVA tenderness Extremity: COMMON NORMALS: no clubbing, cyanosis or edema and no pedal edema Neuro: COMMON NORMALS: patient oriented x3 Discharge Data Studies Completed and Pending Completed Studies During Hospitalization Category Date Time Status CT abdomen RS [CT kidney stone [id number]] Stat Cat Scan 01/22/22 23:[address] head wo con* [id number] Stat Cat Scan 01/22/22 22:55 Completed XR chest 1V portable [id number] Stat Exams 01/22/22 22:01 Completed US abdomen limited [id number] Stat Ultrasound 01/23/22 03:24 Completed US renal BI* [id number] Stat Ultrasound 01/23/22 04:46 Completed Pending at discharge Category Date Time Status ISAAC Screen w/ Reflex Routine Lab 01/23/22 15:22 Results Anti-Neutrophil Cytoplasmic AB Routine Lab 01/23/22 15:22 Results Blood Culture Stat Lab 01/23/22 03:18 Results Complement Total (CH50) Routine Lab 01/23/22 15:22 Results Complete Blood Count w/Auto AM LABS Lab 01/25/22 04:00 Ordered Complete Blood Count w/Auto AM LABS Lab 01/26/22 04:00 Ordered Comprehensive Metabolic Panel AM LABS Lab 01/25/22 04:00 Ordered Comprehensive Metabolic Panel AM LABS Lab 01/26/22 04:00 Ordered KAPPA/LAMBDA LIGHT FREE SERUM Routine Lab 01/23/22 15:22 Results MR head wo/w con [id number] Routine MRI 01/24/22 12:14 Taken Radiology Impressions Chest X-Ray 01/22/22 22:01 IMPRESSION: No acute radiographic findings in the chest. Head CT 01/22/22 22:55 IMPRESSION: No evidence of acute intracranial hemorrhage, mass effect, or midline shift. Abdomen/Pelvis CT 01/22/22 23:11 IMPRESSION: 1. Negative for acute inflammatory process in the abdomen or pelvis. 2. Hepatic steatosis. Abdomen Ultrasound 01/23/22 03:24 IMPRESSION: Hyperechoic liver, which can be seen with fatty infiltration or hepatocellular disease. Renal Ultrasound 01/23/22 04:46 IMPRESSION: Normal renal ultrasound. Laboratory Results WBC 5.9 10^3/uL (4.0-10.0) 01/24/22 05:10 RBC 4.69 10^6/uL (4.1-5.3) 01/24/22 05:10 Hgb 14.8 g/dL (11.5-15.3) 01/24/22 05:10 Hct 43.4 % (37.0-47.0) 01/24/22 05:10 MCV 92.5 fl (81-99) 01/24/22 05:10 MCH 31.6 pg (28.0-34.0) 01/24/22 05:10 MCHC 34.1 g/dL (30.0-36.0) 01/24/22 05:10 RDW 14.7 % (12.1-15.1) 01/24/22 05:10 Plt Count 182 10^3/cmm (130-400) D 01/24/22 05:10 MPV 10.5 fL (7.4-10.4) H 01/24/22 05:10 Neut % (Auto) 58.8 % 01/24/22 05:10 Lymph % (Auto) 27.8 % 01/24/22 05:10 [place] % (Auto) 11.0 % 01/24/22 05:10 Eos % (Auto) 1.4 % 01/24/22 05:10 Baso % (Auto) 0.5 % 01/24/22 05:10 Neut # (Auto) 3.47 10^3/uL (1.8-7.7) 01/24/22 05:10 Lymph # (Auto) 1.6 10^3/uL (0.8-4.8) 01/24/22 05:10 [place] # (Auto) 0.7 10^3/uL (0.2-0.9) 01/24/22 05:10 Eos # (Auto) 0.1 10^3/uL (0.0-0.8) 01/24/22 05:10 Baso # (Auto) 0.0 10^3/uL (0.0-0.1) 01/24/22 05:10 Nucleated RBC % (auto) 0 % 01/24/22 05:10 Nucleated RBCs # 0.0 /100WBC 01/24/22 05:10 PT 13.10 SECONDS (12.1-14.9) 01/24/22 05:10 INR 0.96 (0.8-1.2) 01/24/22 05:10 Sodium 133 mmol/L (136-145) L 01/24/22 05:10 Potassium 3.8 mmol/L (3.5-5.1) 01/24/22 05:10 Chloride 97 mmol/L (98-107) L 01/24/22 05:10 Carbon Dioxide 24 mmol/L (22-29) 01/24/22 05:10 Anion Gap 15.8 (5-19) 01/24/22 05:10 BUN 15 mg/dL (6-20) 01/24/22 05:10 Creatinine 1.1 mg/dL (0.5-0.9) H 01/24/22 05:10 GFR Calculation 54.2 mL/min (90-130) L 01/24/22 05:10 Glucose 108 mg/dL (65-115) 01/24/22 05:10 Estimat Average Glucose 120 01/24/22 05:10 Hemoglobin A1c 5.8 % (4.0-6.0) 01/24/22 05:10 Calculated Osmolality 277 mOsm/kg (285-295) L 01/24/22 05:10 Calcium 9.3 mg/dL (8.5-10.5) 01/24/22 05:10 Phosphorus 3.3 mg/dL (2.5-4.5) 01/23/22 15:22 Magnesium 2.2 mg/dL (1.7-2.3) 01/23/22 15:22 Total Bilirubin 0.2 mg/dL (0.15-1.2) 01/24/22 05:10 AST 52 U/L (0-32) H 01/24/22 05:10 ALT 96 U/L (0-33) H 01/24/22 05:10 Alkaline Phosphatase 110 U/L (35-105) H 01/24/22 05:10 Creatine Kinase 207 U/L (26-192) H 01/23/22 15:22 CK-MB (CK-2) 2.6 ng/mL (0-5.34) 01/23/22 15:22 CK-MB (CK-2) Rel Index % (0.0-10.4) 01/23/22 15:22 Troponin T Baseline 18 ng/L (0-10) H 01/22/22 22:58 Troponin T 120 Minute 11.34 ng/L (0-10) H 01/23/22 02:00 Delta Troponin T -6.66 ABS# (0-10) L 01/23/22 02:00 Troponin T Hi Sens 6Hr 10.68 ng/L (0-10) H 01/23/22 04:50 Troponin T Hi Sens 6Hr Delta -7.32 ng/L (0-12) L 01/23/22 04:50 Total Protein 6.7 g/dL (6.6-8.7) 01/24/22 05:10 Albumin 3.7 g/dL (3.5-5.2) 01/24/22 05:10 Globulin 3.0 g/dL (1.3-4.6) 01/24/22 05:10 Oumjk-2-Haneqrpsn 0.3 g/dL (0.2-0.3) 01/23/22 15:22 Utrdq-7-Hayqvetiu 0.9 g/dL (0.5-0.9) 01/23/22 15:22 Aoqu-9-Niioyach 0.5 g/dL (0.4-0.6) 01/23/22 15:22 Xddd-0-Lwrzvrld 0.4 g/dL (0.2-0.5) 01/23/22 15:22 Gamma Globulins 1.1 g/dL (0.8-1.7) 01/23/22 15:22 Abnorm Protein Band 1 Not Reportable 01/23/22 15:22 Triglycerides 393 mg/dL (0-150) H 01/24/22 05:10 Cholesterol 214 mg/dL (0-200) H 01/24/22 05:10 LDL Cholesterol, Calc 105 mg/dL (50-129) 01/24/22 05:10 HDL Cholesterol 30 mg/dL (60-100) L 01/24/22 05:10 LDL/HDL Ratio 3.50 RATIO (0.00-3.22) H 01/24/22 05:10 Cholesterol/HDL Ratio 7.13 mg/dL (0.0-4.40) H 01/24/22 05:10 Procalcitonin 0.06 ng/mL (0-0.5) 01/24/22 05:10 TSH 5.68 uIU/mL (0.27-4.20) H 01/24/22 05:10 Urine Color Yellow (Yellow) 01/24/22 09:38 Urine Appearance Clear (CLEAR) 01/24/22 09:38 Urine pH 6 (5-7) 01/24/22 09:38 Ur Specific [place] 1.015 (1.005-1.030) 01/24/22 09:38 Urine Protein Neg (Negative) 01/24/22 09:38 Urine Glucose (UA) Norm (Normal) 01/24/22 09:38 Urine Ketones Negative (Negative) 01/24/22 09:38 Urine Blood Neg (Negative) 01/24/22 09:38 Urine Nitrate Negative (Negative) 01/24/22 09:38 Urine Bilirubin Neg (Negative) 01/24/22 09:38 Prot Sulfosalicylic Acd Cancelled 01/23/22 01:13 Urine Urobilinogen Neg mg/dL (Negative) 01/24/22 09:38 Ur Leukocyte Esterase 2+ (Negative) H 01/24/22 09:38 Urine RBC 0-4 /hpf (0-2) H 01/24/22 09:38 Urine WBC 0-4 /hpf (0-5) H 01/24/22 09:38 Ur Squamous Epith Cells 10-15 /hpf (0-5) H 01/24/22 09:38 Ur Transition Epith Cell Cancelled 01/23/22 01:13 Ur Renal Epithelial Cell Cancelled 01/23/22 01:13 Calcium Oxalate Crystal Cancelled 01/23/22 01:13 Uric Acid Crystals Cancelled 01/23/22 01:13 Triple Phos Crystals Cancelled 01/23/22 01:13 Other Crystals Cancelled 01/23/22 01:13 Amorphous Sediment Not Reportable 01/24/22 09:38 Urine Bacteria 1+ /hpf (NONE) H 01/24/22 09:38 Hyaline Casts 0-4 /lpf H 01/23/22 01:16 Fine Granular Casts 0-4 /lpf H 01/23/22 01:16 Coarse Granular Casts 5-10 /lpf H 01/23/22 01:16 RBC Casts Cancelled 01/23/22 01:13 Other Casts Cancelled 01/23/22 01:13 Urine Mucus Cancelled 01/23/22 01:13 Urine Trichomonas 1+ /hpf H 01/24/22 09:38 Urine Yeast Cancelled 01/23/22 01:13 Urine Sperm Cancelled 01/23/22 01:13 Ur Oval Fat Bodies Cancelled 01/23/22 01:13 U Random Total Protein 13 mg/dL 01/24/22 09:38 Ur Random Sodium 136 mmol/L 01/23/22 01:13 Urine Creatinine 112 mg/dL (28-217) 01/24/22 09:38 U Abnormal Prot Band 2 Not Reportable 01/23/22 15:22 U Abnormal Prot Band 3 Not Reportable 01/23/22 15:22 Urine Opiates Screen Cancelled 01/23/22 01:13 Acetaminophen < 5.0 ug/mL (10-30) L 01/23/22 04:50 Ur Barbiturates Screen Cancelled 01/23/22 01:13 Ur Phencyclidine Scrn Cancelled 01/23/22 01:13 Ur Amphetamines Screen Cancelled 01/23/22 01:13 U Benzodiazepines Scrn Cancelled 01/23/22 01:13 Urine Cocaine Screen Cancelled 01/23/22 01:13 U Marijuana (THC) Screen Cancelled 01/23/22 01:13 Pro Electrophoresis Int See note 01/23/22 15:22 Complement C3 171 mg/dL (90-180) 01/23/22 15:22 Complement C4 44 mg/dL (10-40) H 01/23/22 15:22 Free [place] Light Chains 23.9 mg/L (3.3-19.4) H 01/23/22 15:22 Free [place]ambda Light Chain 16.5 mg/L (5.7-26.3) 01/23/22 15:22 Free [place]/Lambda Ratio 1.45 (0.26-1.65) 01/23/22 15:22 Hep Bs Antigen Non-reactive (Nonreactive) 01/23/22 04:03 Hep Bs Antibody 3.5 (11.5-1000) L 01/23/22 04:03 Hep B Core Total Ab Non-reactive (Nonreactive) 01/23/22 04:03 Hepatitis C Antibody Non-reactive (Nonreactive) 01/23/22 04:03 SARS-CoV-2 Ag (Rapid) negative (Negative) 01/23/22 00:31 Anti-Streptolysin O Ab 60 IU/mL (<200) 01/23/22 04:03 Vitals Last Vital Signs Temp 98.0 F 01/24/22 16:00 Pulse 81 01/24/22 16:00 Resp 16 01/24/22 16:00 BP 178/91 01/24/22 16:00 Pulse Ox 96 01/24/22 16:00 O2 Del Method 01/24/22 16:00 Discharge Plan Discharge Patient Disposition: Home Condition: Stable Prescriptions: New amlodipine 10 mg Tablet 10 mg PO DAILY 30 Days Qty: 30 0RF cefpodoxime 200 mg tablet 200 mg PO BID 5 Days Qty: 10 0RF Rx Instructions: must administer with a meal/food hydralazine 50 mg tablet 75 mg PO TID 30 Days Qty: 135 0RF Continued acetaminophen 325 mg capsule 325 mg PO Q4H PRN (Reason: fever or pain) Qty: 60 0RF Held ibuprofen 800 mg tablet 800 mg PO TID PRN (Reason: pain) Qty: 60 0RF Hold Instructions: avoid for now due to kidney injury Discontinued lisinopril 10 mg tablet 10 mg PO DAILY Discharge Orders: Discharge Order (Routine); Ordered 01/26/22 Ordered By: Janessa Olivares Referrals: Montana Jackson [Other] - 2 weeks (Will contact patient with appointment information ) Kaity Rahman FNP [Primary Care Provider] - 01/29/22 9:30 am Nargis Coyne MD [Physician] - 2 weeks (Incidental benign enhancing venous angioma in the LEFT frontal white matter. ) Discharge Diet: Regular and Low Salt Discharge Activity: Resume usual activity Patient Instructions: Hydralazine (By mouth), Cefpodoxime Proxetil (By mouth), Amlodipine (By mouth), Acute Kidney Injury (GEN), Urinary Tract Infection in Women (GEN) Activity Restrictions/Additional Instructions: Please follow up with nephrology as discussed. Please keep check on your BP and keep a log sheet to take to your primary care doctor. Discharge Attestations Time Spent in Discharge Care*: greater than 30 min Quality Metrics Clinical Quality Measures [ No reported AMI, CVA or VTE this stay] Coding Level of Care Code Acute Chg FW DC note Diagnoses DEANNA (acute kidney injury) N17.9
[2022-01-29 08:48] LABS: Anti-Nuclear AB Pattern #2 Cytoplasmic; Anti-Nuclear Antibody Pattern Nuclear, Speckled; Anti-Nuclear Antibody Screen POSITIVE (NEGATIVE)
== END 2022-01-26 12:50 | disposition home or self-care (01) | DRG 683 ==
LOC: ER 01-23 02:27 → MEDSURG 01-23 15:09
PROVIDERS: Internal Medicine; Admitting Provider Internal Medicine; Emergency Provider Emergency Medicine; PCP Nurse Practitioner Family; Visit Provider Internal Medicine
DX: N17.9 Acute kidney failure, unspecified (principal); N39.0 Urinary tract infection, site not specified; I16.0 Hypertensive urgency; I10 Essential (primary) hypertension; K76.0 Fatty (change of) liver, not elsewhere classified; F17.200 Nicotine dependence, unspecified, uncomplicated; N00.9 Acute nephritic syndrome with unspecified morphologic changes; E86.0 Dehydration; E66.9 Obesity, unspecified; Z68.34 Body mass index [BMI] 34.0-34.9, adult
CPT/HCPCS: 36415; 36416; 70450; 70553; 71045; 74176; 76705; 76770; 80053; 80061; 80306; 80307; 81001; 82550; 82553; 82575; 82962; 83036; 83735; 83883; 84100; 84145; 84155; 84156; 84165; 84300; 84443; 84484; 85025; 85610; 86036; 86038; 86060; 86160; 86162; 86704; 86706; 86803; 87040; 87340; 87426; 93005; 96372; A9577; G0378; J0360; J0696; J1644; J2405; J3010; J7040; Q3014

== ENCOUNTER 2022-02-22 10:05 | Outpatient (CLI) | payer MEDICAID, SELFPAY ==
--- NOTE | 2022-02-22 10:13 | MM_ITS ---
WS: [id number] SCREENING DIGITAL TOMOSYNTHESIS MAMMOGRAM WITH CAD HISTORY: SCREENING COMPARISON: None available. Bilateral CC and MLO with tomosynthesis views submitted. Synthetic mammography reviewed. Computer aid ed detection analyzed. Breast composition: There are scattered areas of fibroglandular density. No suspicious masses, microc alcifications or architectural distortion. MM/[place] [id number] IMPRESSION: BI-RADS: 1-Negative FOLLOW UP: 1 Year Follow-up
== END 2022-02-22 10:06 | disposition home or self-care (01) ==
LOC: RAD 10:07
PROVIDERS: PCP Nurse Practitioner Family; Visit Provider Nurse Practitioner Family
DX: Z12.31 Encounter for screening mammogram for malignant neoplasm of breast (principal)
CPT/HCPCS: 77063; 77067

== ENCOUNTER 2022-11-20 23:34 | Emergency (ER) | payer MEDICAID, SELFPAY ==
[2022-11-20 23:35] VITALS: BP 174/100; PULSE 71; RESP 16; TEMP 36.7; O2SAT 96; BMI 31.5
--- NOTE | 2022-11-20 23:39 | CTR_ITS ---
PROCEDURE INFORMATION: Exam: CT Lumbar Spine Without Contrast Exam date and time: 11/20/2022 11:59 PM Age: 42 years old Clinical indication: Injury or trauma; Fall; Other: Fell down stairs TECHNIQUE: Imaging protocol: Computed tomography of the lumbar spine without contrast. Radiation optimization: All CT scans at this facility use at least one of these dose optimization techniques: automated exposure control; mA and/or kV adjustment per patient size (includes targeted exams where dose is matched to clinical indication); or iterative reconstruction. REPORTING DATA: Count of CT and Cardiac NM exams in prior 12 months: This patient has received 2 known CTs and 0 known cardiac nuclear medicine studies in the 12 months prior to the current study. COMPARISON: CT kidney stone [id number] 01/22/2022 11:14 PM RADIATION DOSE METRICS: Total DLP (mGy-cm): 866.8 FINDINGS: Bones/joints: Mildly displaced right transverse process fractures of L2, L3, and L4 vertebral bodies. The remaining osseous structures appear grossly intact. The vertebral body heights are maintained. No additional vertebral body fractures are identified. Minimal disc bulges. Mild degenerative changes of the SI joints. Soft tissues: Nonobstructive 2.2 mm right renal stone. CT/CT lumbar spine wo con* [id number] IMPRESSION: 1. Mildly displaced right L2, L3, and L4 transverse process fractures. 2. No additional acute osseous fractures are identified. 3. Nonobstructive 2 mm right renal stone.
--- NOTE | 2022-11-20 23:51 | W.ED.FALL ---
HPI - Fall General: Chief Complaint: Fall Stated Complaint: Fall Time Seen by Provider: 11/20/22 23:36 Source: patient and EMS Mode of arrival: EMS Limitations: no limitations History of Present Illness: 42-year-old female states that she is going on her porch and slipped in the rain and fell down 5 steps states she did hit her low back when she fell and has low back pain she rates a 9 out of 10 she denies any other injuries denies hitting her head states the pain is worse with movement improved with rest. Associated symptoms-after fall: Denies abdominal pain, chest pain, headache(s) or neck pain Review of Systems Const: Denies: fever(s) or chills ENMT: Denies: throat pain or dental pain Card: Denies: chest pain Resp: Denies: dyspnea GI: Denies: abdominal pain, nausea, vomiting or diarrhea Musc: Reports: back pain; Denies: neck pain Skin/Breast: Denies: rash Neuro: Denies: headache(s) FOR[facility] ED PFSH: Medical History Bartholin gland cyst 10/17/2021- Left bartholin gland marsupialization performed by Dr. Donohue at [facility] Hypertension Surgical History History of delivery x3 - first one due to failure to progress. Family History Mother Anesthesia complication Father Dementia Other Bleeding disorder CAD (coronary artery disease) Cancer Chronic kidney disease (CKD) Clotting disorder Diabetes Hypertension Stroke Denies family history of Hyperlipidemia Psychiatric illness Suicide Lung disease Social History Smoking and tobacco status: current every day smoker Quit status (tobacco): not considering quitting Second hand smoke exposure: Yes Alcohol intake: never Desire information about alcohol rehabilitation?: No Substance/Drug Use: never Desire information about substance/drug rehabilitation?: No Physical Exam Const: COMMON NORMALS: no acute distress, patient oriented x3 and healthy appearing HENMT: COMMON NORMALS: normocephalic HEAD & SCALP: normocephalic Neck/C-Spine: COMMON NORMALS: full ROM and supple Chest: COMMONS NORMALS: normal inspection of the chest and normal palpation of entire chest wall Resp: COMMON NORMALS: normal respiratory effort Cardio: COMMON NORMALS: regular rate, regular rhythm and No murmurs present (Cardio) RATE: regular rate RHYTHM: regular rhythm GI: COMMON NORMALS: Normal to inspection, nondistended, normoactive bowel sounds present, Soft to palpation, non-tender and no masses PALPATION: Yes Soft to palpation Back/Pelvis: OTHER: Abrasion to low back with tenderness over L-spine Extremity: COMMON NORMALS: normal to inspection and full ROM Neuro: COMMON NORMALS: patient oriented x3, moves all extremities and no focal motor deficits Psych: COMMON NORMALS: mental status grossly normal, Normal thought process present and cooperative THOUGHT PROCESS: Normal thought process present Skin: COMMON NORMALS: no rashes or lesions noted and no wounds GENERAL SKIN EXAM: no rashes or lesions noted Course Vital Signs: Vital signs: Vital Signs Temperature 98.0 F 11/20/22 23:35 Pulse Rate 71 11/20/22 23:35 Respiratory Rate 16 11/20/22 23:35 Blood Pressure 174/100 11/20/22 23:35 Pulse Oximetry 96 11/20/22 23:35 Oxygen Delivery Me thod Room Air 11/20/22 23:35 MDM - Fall Medical Decision Making Patient presents for transverse process fracture of her L-spine we will get her follow-up with Dr. Phelps she is well-appearing here otherwise we will prescribe her pain meds she is to follow-up and return if worsening Lab Data Radiology Impressions Lumbar Spine CT 11/20/22 23:39 IMPRESSION: 1. Mildly displaced right L2, L3, and L4 transverse process fractures. 2. No additional acute osseous fractures are identified. 3. Nonobstructive 2 mm right renal stone. ADDENDUM: 11/21/22 0054 IMPRESSION: 1. Mildly displaced right L2, L3, and L4 transverse process fractures. 2. Nondisplaced right L1 transverse process fracture. 3. No additional acute osseous fractures are identified. 4. Nonobstructive 2 mm right renal stone. Discharge Plan Discharge Patient Disposition: Home Clinical Impression: Fall, Fracture of transverse process of lumbar vertebra Condition: Stable Prescriptions: New hydrocodone-acetaminophen 5-325 mg tablet 1 tab PO Q6H PRN (Reason: pain) Qty: 14 0RF No Action ibuprofen 800 mg tablet 800 mg PO TID PRN (Reason: pain) Qty: 60 0RF Hold Instructions: avoid for now due to kidney injury acetaminophen 325 mg capsule 325 mg PO Q4H PRN (Reason: fever or pain) Qty: 60 0RF Discharge Orders: Discharge ED (Routine); Ordered 11/21/22 Ordered By: Libia Pierre Referrals: Jose Phelps DO [Physician] - 1-3 days Kaity Rahman, STEWARD/STEWARDESS NIGHT [Primary Care Provider] - Discharge Diet: Advance as tolerated Discharge Activity: Resume usual activity Patient Instructions: Transverse Process Fracture (ED) Coding Level of Care Code ED Tax Senior Associate for Johnny Lim
[2022-11-21] MEDS: HYDROcodone-acetaminophen 7.5-325 mg Tablet 1 TAB PO (01:16)
[2022-11-21 01:17] VITALS: BP 163/102; PULSE 63; RESP 16; O2SAT 100
--- NOTE | 2022-11-21 07:40 | DCPLANNER ---
Addendum entered by Ema Huerta 12/11/22 14:41: Patient had a follow up appointment scheduled with ortho - patient did attend appointment. Addendum entered by Ema Huerta 11/21/22 11:27: manager meeting received the following message from the ortho clinic regarding follow up appointment: attempt made to contact patient - left vm to call our clinic to schedule w/ dr hernández or harleen kemp - her address is a [place] address im not sure if she is following up here? Original Note: manager meeting had message to schedule a follow up appointment for patient with ortho. manager meeting sent patients information to the front office staff at ortho. Patients information will be printed and reviewed. Clinic will call patient with appointment information.
== END 2022-11-21 01:18 | disposition home or self-care (01) ==
PROVIDERS: Emergency Provider Emergency Medicine; PCP Nurse Practitioner Family
DX: S32.028A Other fracture of second lumbar vertebra, initial encounter for closed fracture (principal); S32.038A Other fracture of third lumbar vertebra, initial encounter for closed fracture; S32.048A Other fracture of fourth lumbar vertebra, initial encounter for closed fracture; S32.018A Other fracture of first lumbar vertebra, initial encounter for closed fracture; F17.210 Nicotine dependence, cigarettes, uncomplicated; I10 Essential (primary) hypertension; W10.8XXA Fall (on) (from) other stairs and steps, initial encounter
CPT/HCPCS: 72131; 99284

== ENCOUNTER 2024-06-19 14:32 | Emergency (ER) | payer MEDICAID, SELFPAY ==
[2024-06-19] VITALS (7 sets, daily range): BP systolic 147–168; BP diastolic 91–107; PULSE 70–84; RESP 14–16; TEMP 36.8; O2SAT 97–99; BMI 28.3
--- NOTE | 2024-06-19 14:49 | XRR_ITS ---
PROCEDURE INFORMATION: Exam: XR Chest Exam date and time: 06/19/2024 2:59 PM Age: 44 years old Clinical indication: Chest pressure; Dyspnea; Cough; Chest pain TECHNIQUE: Imaging protocol: Radiologic exam of the chest. Views: 1 view. COMPARISON: CR XR chest 1V portable [id number] 01/22/2022 10:26 PM FINDINGS: Lungs: Right midlung calcified benign granuloma. No consolidation. Pleural spaces: Unremarkable. No pleural effusion. No pneumothorax. Heart/Mediastinum: Unremarkable. No cardiomegaly. Bones/joints: Unremarkable. XR/XR chest 1V portable [id number] IMPRESSION: No acute findings.
--- NOTE | 2024-06-19 14:49 | ECG_ITS ---
[facility] Test Date: 2024-06-19 Pat Name: Wen Mcintyre Department: Room: Gender: Female Implementation Specialist: : 1980 Requested By: Miguel Cedillo Order Number: [id number] Tereso MD: Parker Judd M.D. Measurements Intervals [place] Rate: 83 P: 77 MT: 187 QRS: 81 QRSD: 89 T: 62 QT: 388 QTc: 458 Interpretive Statements SINUS RHYTHM Compared to ECG 01/23/2022 01:58:36 T-wave abnormality no longer present Electronically Signed On 06-19-2024 17:56:20 LOG RAFTER by Parker Judd M.D. [id number]
--- NOTE | 2024-06-19 15:05 | PC.PHAR ---
Pt states she has filled 3 blood pressure medications here at [facility]. Their records show July of 2022 since last filled with them. Pt states she has 3 or 4 days left on all of them. She states she takes something that starts with an H, an A, and an L. Pt did not tell me where she filled in [place] and I asked twice. [facility] does not have her on file.
[2024-06-19 15:08] LABS: Basophils % 0.3 %; Eosinophils # 0.1 10^3/uL (0.0-0.8); Eosinophils % 0.7 %; Hematocrit 47.4 % (36-47); Lymphocytes # 1.8 10^3/uL (0.8-4.8); Lymphocytes % 16.9 %; Mean Corpuscular HGB Conc 32.9 g/dL (30-55); Mean Corpuscular Hemoglobin 30.1 pg (27-33); Mean Corpuscular Volume 91.3 fl (85-98); Mean Platelet Volume 9.3 fL (7.4-10.4); Monocytes # 0.8 10^3/uL (0.2-0.9); Monocytes % 7.3 %; Neutrophils # 7.81 10^3/uL (1.8-7.7); Nucleated Red Blood Cells % 0 %; Platelet Count 283 10^3/cmm (157-399); Red Blood Count 5.19 10^6/uL (3.85-5.65); Red Cell Distribution Width 12.1 % (12.1-15.1); White Blood Count 10.54 10^3/uL (3.29-11.43)
[2024-06-19] MEDS: lidocaine 2% viscous 15 ML, aluminum-mag hydrox-simethicon 30 ML, sucralfate oral liq 1 GM PO (15:18)
[2024-06-19] MEDS: sodium chloride 0.9% 1,000 ML 999 ML IV (15:18)
[2024-06-19 15:26] LABS: Troponin(5th) Baseline < 6 ng/L (0-10)
[2024-06-19 15:31] LABS: Alanine Aminotransferase 14 U/L (0-33); Albumin Level 4.2 g/dL (3.5-5.2); Alkaline Phosphatase 122 U/L (35-105); Anion Gap 16.2 (5-19); Aspartate Amino Transferase 16 U/L (0-32); Blood Urea Nitrogen 13 mg/dL (6-20); Calcium 9.7 mg/dL (8.5-10.5); Carbon Dioxide 20 mmol/L (22-29); Chloride 103 mmol/L (98-107); Creatinine Clr Calc Pharmacy 83.8811; Globulin 2.9 g/dL (1.3-4.6); Glomerular Filtration Rate 77.2 mL/min (90-130); Glucose 105 mg/dL (65-115); Lipase 50 U/L (13-60); Osmolality Calculated 280 mOsm/kg (285-295); Potassium 4.2 mmol/L (3.5-5.1); Sodium 135 mmol/L (136-145); Total Bilirubin 0.2 mg/dL (0.15-1.2); Total Protein 7.1 g/dL (6.6-8.7)
[2024-06-19 15:35] LABS: NT Pro B Type Natriuretic Pept 111 pg/mL (0-125)
[2024-06-19 16:33] LABS: Troponin 5 2HR Delta 0.00001 ABS# (0-10)
--- NOTE | 2024-06-19 16:56 | W.ED.CHESTPA ---
HPI - Chest Pain General: Chief Complaint: Chest Pain Stated Complaint: chest pain Time Seen by Provider: 06/19/24 14:34 History of Present Illness: This patient is a 44-year-old white female who presents to the emergency department with high blood pressure. Patient felt like she was getting sick on . She developed low-grade fever with nausea and vomiting. Yesterday she developed some chest pain in the morning and some shortness of breath today. She felt like her blood pressure was elevated. She has not had any cough or cold symptoms. She was brought in by EMS. They did give her 4 mg of Zofran for her nausea. She is also given aspirin, sublingual nitro and they did place 1 inch of Nitropaste for her blood pressure of 200/100. Patient is having some mild epigastric pressure at this time. Associated symptoms: Reports dyspnea, fever(s), nausea and vomiting Related Data Home Medications ?Medication ?Instructions ?Recorded ?Confirmed amlodipine 10 mg tablet 10 mg PO DAILY 06/19/24 06/19/24 hydralazine 50 mg tablet 75 mg PO TID 06/19/24 06/19/24 lisinopril 10 mg tablet 10 mg PO DAILY 06/19/24 06/19/24 Allergies Allergy/AdvReac Type Severity Reaction Status Date / Time No Known Allergies Allergy Verified 12/03/22 11:04 Review of Systems General: Reports: 10 or more systems reviewed and unremarkable except in HPI and below Const: Reports: fever(s) Card: Reports: chest pain Resp: Reports: dyspnea GI: Reports: nausea and vomiting [facility] ED PFSH: Medical History Bartholin gland cyst 10/17/2021- Left bartholin gland marsupialization performed by Dr. Donohue at [facility] Hypertension Surgical History History of delivery x3 - first one due to failure to progress. Family History Mother Anesthesia complication Father Dementia Other Bleeding disorder CAD (coronary artery disease) Cancer Chronic kidney disease (CKD) Clotting disorder Diabetes Hypertension Stroke Denies family history of Hyperlipidemia Psychiatric illness Suicide Lung disease Social History (Reviewed 12/03/22 @ 11:04 by AILEEN Kimbrough Smoking and tobacco/nicotine status: current every day tobacco/nicotine user Quit status (tobacco/nicotine): not considering quitting Second hand smoke exposure: Yes Alcohol intake: never Substance/Drug Use: never Physical Exam Const: COMMON NORMALS: no acute distress, patient oriented x3 and no limitations GENERAL APPEARANCE: cooperative and comfortable HENMT: COMMON NORMALS: normocephalic, atraumatic, Normal nasal mucous membranes and turbinates present, moist oral mucous membranes and oropharynx normal HEAD & SCALP: normal to inspection, normocephalic and atraumatic FACE & SINUS: normal facial exam NOSE: Normal nasal mucous membranes and turbinates present Eye: COMMON NORMALS: Equal, round and reactive pupils present, EOMs intact bilaterally and conjunctivae normal GENERAL EYE: appearance normal, both eyes and all related structures CONJUNCTIVA: Yes conjunctivae normal PUPIL: Yes Equal, round and reactive pupils present Neck/C-Spine: COMMON NORMALS: supple and no JVD Chest: COMMONS NORMALS: normal inspection of the chest Resp: COMMON NORMALS: normal respiratory effort and clear to auscultation bilaterally AUSCULTATION: clear to auscultation bilaterally Cardio: COMMON NORMALS: no JVD, regular rate, regular rhythm, No gallops present (Cardio), No murmurs present (Cardio) and No rub (Cardio) RATE: regular rate RHYTHM: regular rhythm GI: COMMON NORMALS: Normal to inspection, nondistended, normoactive bowel sounds present, Soft to palpation and non-tender AUSCULTATION: Yes normoactive bowel sounds PALPATION: Yes Soft to palpation : COMMON NORMALS: Yes no CVA tenderness BLADDER/KIDNEY EXAM: Yes no CVA tenderness Back/Pelvis: COMMON NORMALS: no CVA tenderness and thoracic and lumbar spine normal to inspection Extremity: COMMON NORMALS: normal to inspection Neuro: COMMON NORMALS: patient oriented x3 and CN's II-XII intact bilaterally Psych: COMMON NORMALS: mental status grossly normal, Normal thought process present and cooperative THOUGHT PROCESS: Normal thought process present Skin: COMMON NORMALS: no rashes or lesions noted, turgor normal and no jaundice GENERAL SKIN EXAM: no rashes or lesions noted and turgor normal Course Vital Signs: Vital signs: Vital Signs Temperature 98.3 F 06/19/24 14:34 Pulse Rate 70 06/19/24 16:30 Respiratory Rate 14 06/19/24 16:30 Blood Pressure 168/102 06/19/24 16:30 Pulse Oximetry 97 06/19/24 16:30 Oxygen Delivery Me thod Room Air 06/19/24 16:30 MDM - Chest Pain Medical Decision Making EKG revealed sinus rhythm with no ST segment abnormalities. Chest x-ray was normal. CBC and CMP normal. Lipase normal at 50. BNP was normal at 111. Troponin was less than 6 with a 2-hour level of 6. Patient was given a GI cocktail for her epigastric discomfort. She is asymptomatic now. We did remove the Nitropaste and her blood pressure did get up to 168/102. We did give her 0.1 mg clonidine p.o. I recommended she increase her lisinopril to 20 mg/day. She can also take an extra 75 mg of hydralazine per day if needed. I recommended she follow-up with her primary care physician next week for recheck and ongoing management of her hypertension. Lab Data 06/19/24 15:03 06/19/24 15:03 Radiology Impressions Chest X-Ray 06/19/24 14:49 IMPRESSION: No acute findings. Laboratory Results WBC 10.54 10^3/uL (3.29-11.43) 06/19/24 15:03 RBC 5.19 10^6/uL (3.85-5.65) 06/19/24 15:03 Hgb 15.60 g/dL (11.27-16.99) 06/19/24 15:03 Hct 47.4 % (36-47) H 06/19/24 15:03 MCV 91.3 fl (85-98) 06/19/24 15:03 MCH 30.1 pg (27-33) 06/19/24 15:03 MCHC 32.9 g/dL (30-55) 06/19/24 15:03 RDW 12.1 % (12.1-15.1) 06/19/24 15:03 Plt Count 283 10^3/cmm (157-399) 06/19/24 15:03 MPV 9.3 fL (7.4-10.4) 06/19/24 15:03 Neut % (Auto) 74.0 % 06/19/24 15:03 Lymph % (Auto) 16.9 % 06/19/24 15:03 Dewey % (Auto) 7.3 % 06/19/24 15:03 Eos % (Auto) 0.7 % 06/19/24 15:03 Baso % (Auto) 0.3 % 06/19/24 15:03 Neut # (Auto) 7.81 10^3/uL (1.8-7.7) H 06/19/24 15:03 Lymph # (Auto) 1.8 10^3/uL (0.8-4.8) 06/19/24 15:03 Dewey # (Auto) 0.8 10^3/uL (0.2-0.9) 06/19/24 15:03 Eos # (Auto) 0.1 10^3/uL (0.0-0.8) 06/19/24 15:03 Baso # (Auto) 0.0 10^3/uL (0.0-0.1) 06/19/24 15:03 Nucleated RBC % (auto) 0 % 06/19/24 15:03 Nucleated RBCs # 0.0 /100WBC 06/19/24 15:03 Sodium 135 mmol/L (136-145) L 06/19/24 15:03 Potassium 4.2 mmol/L (3.5-5.1) 06/19/24 15:03 Chloride 103 mmol/L (98-107) 06/19/24 15:03 Carbon Dioxide 20 mmol/L (22-29) L 06/19/24 15:03 Anion Gap 16.2 (5-19) 06/19/24 15:03 BUN 13 mg/dL (6-20) 06/19/24 15:03 Creatinine 0.8 mg/dL (0.5-0.9) 06/19/24 15:03 GFR Calculation 77.2 mL/min (90-130) L 06/19/24 15:03 Glucose 105 mg/dL (65-115) 06/19/24 15:03 Calculated Osmolality 280 mOsm/kg (285-295) L 06/19/24 15:03 Calcium 9.7 mg/dL (8.5-10.5) 06/19/24 15:03 Total Bilirubin 0.2 mg/dL (0.15-1.2) 06/19/24 15:03 AST 16 U/L (0-32) 06/19/24 15:03 ALT 14 U/L (0-33) 06/19/24 15:03 Alkaline Phosphatase 122 U/L (35-105) H 06/19/24 15:03 Troponin T Baseline < 6 ng/L (0-10) 06/19/24 15:03 Troponin T 120 Minute 6.00 ng/L (0-10) 06/19/24 16:10 Delta Troponin T 0.64944 ABS# (0-10) 06/19/24 16:10 NT-Pro-B Natriuret Pep 111 pg/mL (0-125) 06/19/24 15:03 Total Protein 7.1 g/dL (6.6-8.7) 06/19/24 15:03 Albumin 4.2 g/dL (3.5-5.2) 06/19/24 15:03 Globulin 2.9 g/dL (1.3-4.6) 06/19/24 15:03 Lipase 50 U/L (13-60) 06/19/24 15:03 All radiology interpretation(s) finalized by discharge Discharge Plan Discharge Patient Disposition: Home Clinical Impression: Hypertension Qualifiers: Hypertension type: primary hypertension Qualified Code(s): I10 - Essential (primary) hypertension Condition: Stable Prescriptions: No Action amlodipine 10 mg Tablet 10 mg PO DAILY lisinopril 10 mg Tablet 10 mg PO DAILY hydralazine 50 mg Tablet 75 mg PO TID Discharge Orders: Discharge ED (Routine); Ordered 06/19/24 Ordered By: Miguel Cedillo Referrals: Kaity Rahman, CARRIER BLOWER [Primary Care Provider] - Patient Instructions: Hypertension Activity Restrictions/Additional Instructions: Increase lisinopril to 20 mg/day. You can also take an extra hydralazine 75 mg/day if needed. Follow-up with your primary care provider next week for recheck and ongoing management of your hypertension. Print Language: Frisian Coding Level of Care Code ED News Department Intern for Johnny Lim
[2024-06-19] MEDS: cloNIDine 0.1 mg Tablet PO (17:00)
== END 2024-06-19 17:11 | disposition home or self-care (01) ==
PROVIDERS: Emergency Provider Emergency Medicine; PCP Nurse Practitioner Family
DX: I10 Essential (primary) hypertension (principal); Z72.0 Tobacco use
CPT/HCPCS: 36415; 71045; 80053; 83690; 83880; 84484; 85025; 93005; 99285; J7030

== ENCOUNTER 2024-10-30 13:44 | Emergency (ER) | payer MEDICAID, SELFPAY ==
[2024-10-30 13:51] VITALS: BP 103/66; PULSE 64; RESP 16; TEMP 36.5; O2SAT 98; BMI 29.8
--- OUTSIDE RECORDS SUMMARY | 2024-10-30 13:51 | XMS_ITS | Encounter Summary ---
Author Organization [facility] Address [address] [place] [address] Care Team Providers Care Fiber Heel Piece Shaper Name Role Phone Navarro Mckeon MD Primary Care Provider Encounter Details Date Type Department Care Team (Latest Contact Info) Description 04/16/2002 Outpatient Historical [address] [phone] Ernestine Cross MD [address] [id number] URIN TRACT INFECTION NOS (Primary Dx) Social History Tobacco Use Types Packs/Day Years Used Date Smoking Tobacco: Never Assessed Comments Unknown Sex and Gender Information Value Date Recorded Sex Assigned at Not on file Legal 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
--- OUTSIDE RECORDS SUMMARY | 2024-10-30 13:51 | XMS_ITS | Encounter Summary ---
Author Organization [facility] Address [address] [place] [address] Care Team Providers Care Clerk Travel Reservations Name Role Phone Navarro Mckeon MD Primary Care Provider Encounter Details Date Type Department Care Team (Latest Contact Info) Description 10/23/2000 Outpatient Historical [facility] Medicine [place] [address] [place] [address] [phone] Vinay Land MD [address] [place] [address] [phone] Surveillance of other previously prescribed contraceptive method (Primary Dx) Social History Tobacco Use Types Packs/Day Years Used Date Smoking Tobacco: Never Assessed Comments Unknown Sex and Gender Information Value Date Recorded Sex Assigned at Not on file Legal Sex Female 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
--- OUTSIDE RECORDS SUMMARY | 2024-10-30 13:51 | XMS_ITS | Encounter Summary ---
Author Organization [facility] Address [address] [place] [address] Care Team Providers Care Supervisor Continuous Weld Pipe Mill Name Role Phone Navarro Mckeon MD Primary Care Provider Encounter Details Date Type Department Care Team (Latest Contact Info) Description 07/03/2000 Outpatient Historical [facility] Medicine [address] [phone] Ernestine Cross MD [address] [place] [address] Other postprocedural status(V45.89) (Primary Dx); care and examination immediately after delivery Social History Tobacco Use Types Packs/Day Years Used Date Smoking Tobacco: Never Assessed Comments Unknown Sex and Gender Information Value Date Recorded Sex Assigned at Not on file Legal Sex Female 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
--- OUTSIDE RECORDS SUMMARY | 2024-10-30 13:51 | XMS_ITS | Encounter Summary ---
Author Organization [facility] Address [address] [place] [address] Care Team Providers Care Sandfill Operator Surface Name Role Phone Navarro Mckeon MD Primary Care Provider Encounter Details Date Type Department Care Team (Late st Contact Info) Description 05/30/2002 Outpatient [facility] Ambulance [address] 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
--- OUTSIDE RECORDS SUMMARY | 2024-10-30 13:52 | XMS_ITS | Encounter Summary ---
Author Organization [facility] Address [address] [place] [address] Care Team Providers Care Egg Factory Worker Name Role Phone Navarro Mckeon MD Primary Care Provider Encounter Details Date Type Department Care Team (Latest Contact Info) Description 06/08/2003 Outpatient Historical [facility] Medicine [place] [address] [place] [phone] Vinay Land MD [address] [place] [phone] POSTPART CARE AFTER DEL (Primary Dx) Social History Tobacco Use Types Packs/Day Years Used Date Smoking Tobacco: Never Assessed Comments Unknown Sex and Gender Information Value Date Recorded Sex Assigned at Not on file Legal Sex 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
--- OUTSIDE RECORDS SUMMARY | 2024-10-30 13:52 | XMS_ITS | Data Portability ---
Author Organization [place] [facility] Erik Chiang [facility] Address [address] [place] [phone] Assessment Encounter Date Assessment Date Assessment LastModified by Organization Details LastModified Time 12/02/2022 12/02/2022 Xray over-read from ankle and foot films were read today for this visit. Both were read as negative for fracture or acute changes. Tylenol vs IBU for discomfort. RICE education for swelling. Has ASO lace up brace at home. Wear lace up ankle brace 23 out of 24 hours a day for the next 2 weeks. May begin wearing it only during activities, when tolerated. Discussed wearing more supportive shoes. WBAT Follow up as needed. Patient and verbalize understanding and agreement with this plan or care. [email or web address] Not available 12/02/2022 18:42:30 Plan of Treatment Reminders Order Date Submit Date Provider Last Modified By Organization Details Last Modified Time Details Appointments ACUTE VISIT 2024 01:10P M WALK-IN Not available Not available Not available Lab None recorded. Referral None recorded. Procedures None recorded. Surgeries None recorded. Imaging XR, ankle, 3 or more view - crush injury; pain lateral ankle and lateral foot 2022 023 DAT Not available 11/08/2022 09:37:50 XR, foot, 3 or more view - crush injury; pain lateral foot 2022 023 DAT Not available 11/08/2022 09:54:01 Medication Orders tizanidin e 2 mg tablet 2023 024 [facility] [address], [address], [place], [address], 03/04/2024 16:24:58 cyclobenz aprine 10 mg tablet 2023 024 [facility] 15, [address], [place], [address], 03/04/2024 16:07:09 prednison e 20 mg tablet 2023 024 [facility] 15, [address], [place], [address], 03/04/2024 16:03:55 Patient TargetsNo targets recorded. Patient Instructions Encounter Date Encounter Id Patient Instructions Last Modified By Organization Details Last Modified Time 09/01/2023 [id number] back pain: care instructions [email or web address] Not available 09/01/2023 15:48:13 Reason for Referral None Reported. Results Created Date Observation Date Name Description Value Unit Range Abnormal Flag Note LastModifiedBy Organization Detail LastModifiedTime 11/09/1911/07/2022 XR, ankle , 3 or more view No observ ation record ed. [email or web address] [facility] [address] [place], [address], 11/08/2022 15:49:29 11/09/19 23 11/07/2022 XR, foot, 3 or more view No observ ation record ed. [address] [facility] [address] [place], [address], 11/08/2022 15:49:30 Result Notes None recorded. Problems Name Problem SNOMED Code Status Onset Date Resolution Date Notes Provider Name and Address Organization Details Recorded Time Low back pain 527060612 Active 2023 Erick Montero DO [address] [place] [address], [phone], [facility] 15:47:18 Strain of rotator cuff of shoulder 935239128 Active 2023 Baljinder Jose MD [address] [place] [address], [phone], [facility], L.LGeoCGeo 4 16:21:13 Essential hypertension 04853033 Active 2023 Baljinder Jose MD [address] [place], [address], [facility], LGeoLHenri 4 16:21:54 Problem Notes None recorded. Procedures Surgical History Date Name Laterality Status Provider Name and Address Organization Details Recorded Time Caesarean Section completed [facility], Erik 09/01/2023 14:44:37 Dilation and Curettage completed [facility], Erik 09/01/2023 14:44:42 Imaging Results None recorded. Procedure Notes None recorded. Medical Equipment None Reported. Allergies Allergen ID Allergen Name Allergen Category Reaction Reaction Severity Criticality Documentation Date Start Date Code Code System Note Provider Name and Address Organization Details Recorded Time 28920 pineapple allergeni c extract food,medi cation anaphylax is severe high 11/09/2022 04943 5 RxNorm [facility], Erik 4 14:39:56 64077 acetamino phen / oxycodone medicatio n other moderate low 11/09/2022 79711 3 RxNorm kept markos bolivar pt [facility] 4 14:43:10 Medications Name Sig Start Date Stop Date Status Note LastModified by Organization Details LastModified Time cyclobenz aprine 10 mg tablet Take 1 tablet 3 times a day by oral route as needed, for pain/spa sm. 03/04 completed Not Available Not Available Not Available tizanidin e 2 mg tablet Take 1 tablet every 8 hours by oral route. 2023 active Not Available Not Available Not Avai lable naltrexon e 50 mg tablet Take 1 tablet every day by oral route. active Not Available Not Available No t Available prednison e 20 mg tablet Take 2 tablets every day by oral route in the morning for 5 days. 03/04 completed Not Available Not Available Not Available bupropion HCl 100 mg tablet Take 1 tablet twice a day by oral route. active Not Available Not Available No t Available trazodone 100 mg tablet Take 2 tablets every day by oral route. active Not Available Not Available No t Available amlodipin e 10 mg tablet Take 1 tablet every day by oral route. 03/04 completed Not Available Not Available Not Available gabapenti n 300 mg capsule Take 1 capsule 3 times a day by oral route. active Not Available Not Available No t Available hydrochlo rothiazid e 25 mg tablet Take 1 tablet every day by oral route. 03/04 completed Not Available Not Available Not Available propranol ol 20 mg tablet Take 1 tablet 3 times a day by oral route. active Not Available Not Available No t Available doxycycli ne hyclate 100 mg tablet two times daily 08/31 completed Recorded 06/26/19 23 2:12PM by Baljinder Jose MD, Office Visit; Refill Quantity : 0; Not Available Not Available Not Available Flonase each nostril BID 08/31 completed Not Available Not Available Not Available Vitals Date Recorded Body height Body mass index (BMI) Body weight Oxygen saturation Oxygen saturation in Arterial blood by Pulse oximetry Heart rate Respiratory rate Body temperature Systolic And Diastolic Provider Name and Address Organization Details Last Updated DateTime 4 160.02 cm 32.7 kg/m2 56849.1 5 g 98 % 98 % 82 /min 16 /min 98.4 [degF] 162/122 mm[Hg] Loly Brannon [facility]oC[facility] 4 14:49:39 Date Recorded Body height Body mass index (BMI) Body weight Heart rate Oxygen saturation Oxygen saturation in Arterial blood by Pulse oximetry Respiratory rate Body temperature Systolic And Diastolic Provider Name and Address Organization Details Last Updated DateTime 5 160.02 cm 30.5 kg/m2 12989.8 9 g 83 /min 99 % 99 % 20 /min 97.8 [degF] 118/88 mm[Hg] JN MENDEZ [facility] 5 14:13:00 Date Recorded Body weight Body mass index (BMI) Body height Body temperature Respiratory rate Heart rate Oxygen saturation Oxygen saturation in Arterial blood by Pulse oximetry Systolic And Diastolic Provider Name and Address Organization Details Last Updated DateTime 3 33283.1 4 g 30.6 kg/m2 162.56 cm 97.5 [degF] 19 /min 78 /min 98 % 98 % 142/84 mm[Hg] SUZETTE MORENO [facility] 3 13:03:45 Date Recorded Body height Body mass index (BMI) Body weight Oxygen saturation Oxygen saturation in Arterial blood by Pulse oximetry Heart rate Respiratory rate Body temperature Provider Name and Address Organization Details Last Updated DateTime 3 162.56 cm 30.6 kg/m2 07947.1 4 g 97 % 97 % 115 /min 18 /min 98.7 [degF] SHIRAZ KEVIN [facility] 3 17:55:01 Date Recorded Body height Body mass index (BMI) Body weight Oxygen saturation Oxygen saturation in Arterial blood by Pulse oximetry Heart rate Respiratory rate Body temperature Systolic And Diastolic Provider Name and Address Organization Details Last Updated DateTime 4 160.02 cm 30.6 kg/m2 58652.4 8 g 96 % 96 % 112 /min 22 /min 98.2 [degF] 188/110 mm[Hg] Cranbury Alextoro [facility] 4 16:06:27 Social History Question Answer Notes LastModified by Adocia Details LastModified Time Tobacco Smoking Status Current Every Day Smoker Loly bernard [facility] 09/01/2023 14:44:28 What Was The Date Of Your Most Recent Tobacco Screening? 10/30/2024 [email or web address] Information not available 10/30/2024 Sex: Unknown Functional Status Question Answer Note LastModified by Adocia Details LastModified Time Do you use any illicit or recreational drugs? No Information not available 09/01/2023 What is your level of alcohol consumption? None Information not available 09/01/2023 Mental Status None recorded. Family History Nothing Reported. Medical History Condition Response Coronary Artery Disease N Gout N Other N Blood Diseases N Kidney Stones N Hyperthyroidism N Blood Transfusion N Breast Cancer N Depression N COPD N Lung Disease N Hypothyroidism N Developmental or Behavioral Disorders N Defects or Inherited Disease N Breast Problem N Difficulty Swallowing N Anesthesia Complications N Anxiety Disorder N Meniere's disease N Muscle, Joint, or Bone Problems N Vision or Eye Problems N Arthritis N Polyps N Infertility N Cancer N Varicosities N Stroke N Endometriosis N Bladder or Kidney Problems N High Cholesterol N Liver Disease N Headaches N Fibromyalgia N Kidney Disease N Allergies/Hayfever N Heart Problems N Ear or Hearing Problems N Hospitalizations N Thyroid Problems N GI Problems N ADD/ADHD N Skin Problems N Eating Disorder N Anemia N Constipation N Mental Illness N Ovarian Cancer N Diabetes N Bedwetting N Seizures/Epilepsy N Tuberculosis N Eczema N Diverticulitis N Abuse/Domestic Violence N Asthma N Reflux/GERD N Hepatitis N Heart Disease N Pulmonary Embolism N Chronic Ear Infections N Pre-Eclampsia N Hypertension Y Chicken Pox N Autism Spectrum Disorder (ASD) N Osteoporosis N Thrombophilias N Gynecological HistoryNo gynecological history recorded. Obstetrics History GPAL:G 0 P 0 0 0 0 Past Encounters Encounter ID Performer Location Encounter Start Date Encounter Closed Date Diagnosis/Indication Diagnosis SNOMED-CT Code Diagnosis ICD10 Code Diagnosis Note [id number] TOBY ALVARADO [facility] ([facility]) [address] [place] [phone] 11/07/2022 12:52:42 11/07/2022 18:11:01 Pain of right ankle joint 1433559807 8916696 M25.571 Will send x-ray for over read. Will call with official x-ray results. Patient given script for below the knee walking boot. Should wear walking boot for 2 weeks and weight bear as tolerated. RICE treatment recommende d. Can take tylenol/ib uprofen as needed for pain. If worsening pain or no improvemen t in 1-2 weeks, should be re-evaluat ed for probable repeat x-ray. Patient agrees to plan of care. Pain in right foot 83266 62071 34604 M79.620 [id number] CARINA JOHNSON [facility] ([facility]) [address] [place] [address] 12/02/2022 17:32:13 12/02/2022 19:46:22 Sprain of right ankle 0002144260 3218428 S93.401A [id number] Erick Montero DO [facility] ([facility]) [address] [place] [address] 09/01/2023 14:06:37 09/01/2023 15:50:16 Low back pain 145221293 M54.50 concern for lumbar disc flair with possible nerve impingemen t and muscle spasm. will start prednisone and muscle relaxer. pt to take nsaids and tylenol otc.Consid er Xrays.Retu rn to office with no improvemen t or any problems. Go to ER with severe worsening or severe problems. [id number] Baljinder Jose MD [facility] ([facility]) [address] [place] [address] 03/04/2024 16:01:31 03/04/2024 17:16:02 Strain of rotator cuff of shoulder 466739110 S46.011A The patient has tendinitis and/or strain of the her right shoulder. Discussed lifting restrictio ns and the patient states that having a david available to her would be beneficial . Note provided stating such. Discussed rotator cuff rehab exercises and handout provided to the patient. Follow-up with PCP if symptoms or not improving. Essential hypertension 28132715 I10 Blood pressure is severely elevated but she states that she has been taking her medication . Patient intends to restart and follow-up with her PCP. Health Concerns Section Related Observation LastModified by Organization Detai ls LastModified Time None Recorded Concern Status LastModified by Organization Details LastModified Time None Recorded Advance Directives Directive None Recorded Payers Insurance Date Sequence Insurance Name Policy Number Policy Puentes Covered Member ID Puentes Member ID Guarantor Name 10/30/2024 [facility] (MEDICAID HMO) Wen Mcintyre [id number] Wen Mcintyre 10/30/2024 1 [facility] (MEDICAID HMO) Wen Mcintyre [id number] Wen Mcintyre 03/04/2024 1 [place] Wen Mcintyre [id number] Wen Mcintyre Notes Date Note Type Note Provider Name and Address Organization Details Recorded Time 11/07/2022 text/html Musculoskeletal PainReported bypatient.Location:[facility] ankle Quality:sharp;dull Severity:worsening Context:trauma ADLs Affected:walking; climbing stairs walk-in, PCP Dr. Livingston Patient is a 42year old female who presents to the walk in clinic today with a family member. Patient complains of right ankle and foot pain. Current pain 10/21. She was in a horse trailer 4 days ago and reports her ankle/foot got shut in the gate. She thought it was just bruised but pain is worse today and reports it is getting more difficult to walk on her right foot. Foot is swollen and purple. Baljinder Jose MD [address] [place], [address], [facility], Erik 11/08/2022 14:18:08 12/02/2022 text/html Musculoskeletal PainReported bypatient.Location:[facility] ankle Quality:sharp;dull Severity:improving Duration:present <1 month Timing:constant Context:trauma Alleviating Factors:rest Aggravating factors:movement/posi tioning Associated Symptoms:no fever; no weak limbs; no tingling; no numbness of the legs/feet ADLs Affected:walking; climbing stairs CARINA JOHNSON [address] [place], [address], [facility], LAngel 12/02/2022 18:43:06 09/01/2023 text/html Back PainReporte d bypatient.Location:[facility] left Quality:sharp; throbbing Severity:worsening;pa in level 1010;interferes with sleep;interferes with work Duration:5 days Timing:acute; first episode Context:trauma; unusual activity; prior back problems Alleviating Factors:heat; nonsteroidal anti-inflammatory Aggravating Factors:ambulation; twisting; flexing back; extending back Associated Symptoms:no fever; no weakness; no numbness; no tingling;gait instability Pt reports breaking her back in November and took awhile to heal. Told her to watch for bone spurs. On , left side lower back feels like she is being stabbed. Feels like something is caught between. Has taken ibuprofen and Tylenol this morning with no relief. Erick Montero DO [address] [place], [address], [facility], [place]. 09/14/2023 19:33:18 03/04/2024 text/html walk in patientpatient is here today for right shoulder pain that started 1 month and half ago that now is radiating down into her forearm. Patient does not remember a injury. Patient reports that the pain is worse with certain movements. 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 Baljinder Jose MD [address] [place] [address], [phone], [facility], [place]. 03/07/2024 12:37:41 OBGyn Episode No OBEpisode recorded.
--- OUTSIDE RECORDS SUMMARY | 2024-10-30 13:52 | XMS_ITS | Encounter Summary ---
Author Organization [facility] Address [address] [place] [address] Care Team Providers Care House Servant Name Role Phone Navarro Mckeon MD Primary Care Provider Encounter Details Date Type Department Care Team (Latest Contact Info) Description 09/16/[address] 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
--- OUTSIDE RECORDS SUMMARY | 2024-10-30 13:52 | XMS_ITS | Encounter Summary ---
Author Organization [facility] Address [address] [place] [address] Care Team Providers Care Liquor Clerk Name Role Phone Navarro Mckeon MD Primary Care Provider [phone] Encounter Details Date Type Department Care Team (Latest Contact Info) Description 02/03/2003 Outpatient Historical [place] [address] [place] [phone] Navarro Mckeon MD [address] [place] [address] SUPERVIS OTHER NORMAL PREG (Primary Dx) Social History Tobacco Use Types Packs/Day Years Used Date Smoking Tobacco: Never Assessed Comments Unknown Sex and Gender Information Value Date Recorded Sex Assigned at Not on file 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
--- OUTSIDE RECORDS SUMMARY | 2024-10-30 13:52 | XMS_ITS | Encounter Summary ---
Author Organization [facility] Address [address] [facility] [address] 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
--- OUTSIDE RECORDS SUMMARY | 2024-10-30 13:52 | XMS_ITS | Patient Health Record ---
Author Organization [facility] Address [address] [place], [place] [phone] Care Team Providers Care Window Trimmer Name Role Phone Navarro Mckeon MD Primary Care Provider Austen Alvarado MD, Abhi Unavailable [phone] Nikolas Mo DO Unavailable [phone] Allergies Allergen (clinical drug ingredient) Drug/Non Drug Allergy documented on EMR Reaction Allergy Type Onset Date Status None or not verifiab le (as is Current Medications) (uncoded) Unknown Allergy Active Reason For Referral No Information Plan Of Treatment No Information Insurance Providers Payer Name Payer Address Payer Phone Subscriber Number Group Number Insured Name Patient Relationship to Insured Coverage Start Date Coverage End Date [place] [address] [place] [id number] Wen Mcintyre Self - patient is the insured Medical (General) History Medical History History ICD Code See scanned documentation Surgical History Surgery Date(Month/Year) section Dilation and curettage
--- OUTSIDE RECORDS SUMMARY | 2024-10-30 13:52 | XMS_ITS | Clinical Summary ---
Author Organization [facility] Address [address] [place] [address] Care Team Providers Care Book Repairer Name Role Phone Kaity Rahman Primary Care Provider [phone] Social History Tobacco Use Types Packs/Day Years Used Date Smoking Tobacco: Never Assessed Comments Unknown Sex and Gender Information Value Date Recorded Sex Assigned at Not on file Legal Sex Female 11:06 AM EDT Gender Identity Not on file Sexual Orientation Not on file Plan of Treatment Health Maintenance Due Date Last Done Comments Hepatitis B Vaccine (1 of 3 - 19+ 3-dose series) 1997 Influenza Vaccine (#1) 2024 Pneumococcal Vaccine: Peds ( 0 to 5 Years) and At-Risk Patients (6 to 49 Years) Aged Out No longer eligible b ased on patient's age to complete this topic Insurance [facility] ([id number]) Care Teams Book Repairer Relationship Specialty Start Date End Date Kaity Rahman FNP PCP - General Family Medicine 10/17/22
--- OUTSIDE RECORDS SUMMARY | 2024-10-30 13:52 | XMS_ITS | Encounter Summary ---
Author Organization [facility] Address [address] [facility] [address] [place] [address] Phone Care Team Providers Care Personal Injury Litigation Paralegal Name Role Phone Kaity Rahman Primary Care Provider [phone] Encounter Details Date Type Department Care Team ([facility] Contact Info) Description 01/28/2022 Orders Only [facility] [address] [place] [address] Acute injury of kidney (HCC) Social History Tobacco Use Types Packs/Day Years Used Date Smoking Tobacco: Never Assessed Comments Unknown Sex and Gender Information Value Date Recorded Sex Assigned at Not on file Legal Sex Female 11:06 AM EDT Gender Identity Not on file Sexual Orientation Not on file documented as of this encounter Plan of Treatment Not on file documented as of this encounter Visit Diagnoses Diagnosis Acute injury of kidney documented in this encounter Care Teams Personal Injury Litigation Paralegal Relationship Specialty Start Date End Date Kaity Rahman FNP PCP - General Family Medicine 01/28/22 documented as of this encounter
--- OUTSIDE RECORDS SUMMARY | 2024-10-30 13:52 | XMS_ITS | Encounter Summary ---
Author Organization [facility] Address [address] [place] [address] Care Team Providers Care Fulfillment Specialist Name Role Phone Navarro Mckeon MD Primary Care Provider [phone] Encounter Details Date Type Department Care Team (Latest Contact Info) Description 04/28/2000 Outpatient Historical [facility] [address] [phone] Ernestine Cross MD [address] [place] [address] Supervision of other normal (Primary Dx) Social History Tobacco Use Types Packs/Day Years Used Date Smoking Tobacco: Never Assessed Comments Unknown Sex and Gender Information Value Date Recorded Sex Assigned at Not on file 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
--- OUTSIDE RECORDS SUMMARY | 2024-10-30 13:52 | XMS_ITS | Encounter Summary ---
Author Organization [facility] Address [address] [place] [address] Care Team Providers Care Clip On Sunglasses Inspector Name Role Phone Navarro Mckeon MD Primary Care Provider Encounter Details Date Type Department Care Team (Latest Contact Info) Description 09/21/2002 Outpatient Historical [facility] [place] [address] [place] [phone] Alma Hearn MD [address] [place] [address] SUPERVIS OTHER NORMAL PREG (Primary Dx); THREATEN ABORT-ANTEPART Social History Tobacco Use Types Packs/Day Years Used Date Smoking Tobacco: Never Assessed Comments Unknown Sex and Gender Information Value Date Recorded Sex Assigned at Not on file 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
--- OUTSIDE RECORDS SUMMARY | 2024-10-30 13:52 | XMS_ITS | Encounter Summary ---
Author Organization [facility] Address [address] [place] [address] Care Team Providers Care Director Nursing Service Name Role Phone Navarro Mckeon MD Primary Care Provider [phone] Encounter Details Date Type Department Care Team (Latest Contact Info) Description 10/29/2002 Outpatient Historical [facility] Medicine [place] [address] [place] [address] [phone] Alma Hearn MD [address] [place] [address] SUPERVIS OTHER NORMAL PREG (Primary Dx) Social History Tobacco Use Types Packs/Day Years Used Date Smoking Tobacco: Never Assessed Comments Unknown Sex and Gender Information Value Date Recorded Sex Assigned at Not on file Legal Sex Female 4:11 AM CAUSTIC STRENGTH INSPECTOR Gender Identity Not on file Sexual Orientation Not on file documented as of this encounter Plan of Treatment Not on file documented as of this encounter Visit Diagnoses Diagnosis Supervision of other normal - Primary documented in this encounter Care Teams Director Nursing Service Relationship Specialty Start Date End Date Navarro Mckeon MD [address] [phone] PCP - General Family Practice 10/03/15 documented as of this encounter
--- OUTSIDE RECORDS SUMMARY | 2024-10-30 13:52 | XMS_ITS | Encounter Summary ---
Author Organization [facility] Address [address] [place] [address] Care Team Providers Care Carpet Journeyman Name Role Phone Navarro Mckeon MD Primary Care Provider Encounter Details Date Type Department Care Team (Latest Contact Info) Description 06/18/2000 Outpatient Historical [facility] Medicine [address] [phone] Ernestine Cross MD [address] [place] [address] Supervision of other normal (Primary Dx) Social History Tobacco Use Types Packs/Day Years Used Date Smoking Tobacco: Never Assessed Comments Unknown Sex and Gender Information Value Date Recorded Sex Assigned at Not on file Legal Sex Female 4:11 AM MANAGER GIFT Gender Identity Not on file Sexual Orientation Not on file documented as of this encounter Plan of Treatment Not on file documented as of this encounter Visit Diagnoses Diagnosis Supervision of other normal - Primary documented in this encounter Care Teams Carpet Journeyman Relationship Specialty Start Date End Date Navarro Mckeon MD [address] [phone] PCP - General Family Practice 10/03/15 documented as of this encounter
--- OUTSIDE RECORDS SUMMARY | 2024-10-30 13:52 | XMS_ITS | Encounter Summary ---
Author Organization [facility] Address [address] Muhammad: [place] [address] Care Team Providers Care Oil Truck Driver Name Role Phone Navarro Mckeon MD Primary Care Provider [phone] Encounter Details Date Type Department Care Team (Late st Contact Info) Description 11/16/1999 Outpatient Historical Kaity Rahman, CHILD WELFARE WORKER [address] [place] [address] [phone] Social History Tobacco Use Types Packs/Day Years Used Date Smoking Tobacco: Never Assessed Comments Unknown Sex and Gender Information Value Date Recorded Sex Assigned at Not on file Legal Sex Female 4:11 AM MANAGER CHILD Gender Identity Not on file Sexual Orientation Not on file documented as of this encounter Plan of Treatment Not on file documented as of this encounter Visit Diagnoses Not on filedocumented in this encounter Care Teams Oil Truck Driver Relationship Specialty Start Date End Date Navarro Mckeon MD [address] [place] [address] [phone] PCP - General Family Practice 10/03/15 documented as of this encounter
--- OUTSIDE RECORDS SUMMARY | 2024-10-30 13:52 | XMS_ITS | Encounter Summary ---
Author Organization [facility] Address [address] Muhammad: [place] [address] Care Team Providers Care Fur Dresser Name Role Phone Navarro Mckeon MD Primary Care Provider [phone] Encounter Details Date Type Department Care Team (Late st Contact Info) Description 08/27/2000 Outpatient Historical Kaity Rahman, SKIN CARE TECHNICIAN [address] [place] [address] [phone] Social History Tobacco Use Types Packs/Day Years Used Date Smoking Tobacco: Never Assessed Comments Unknown Sex and Gender Information Value Date Recorded Sex Assigned at Not on file Legal Sex Female 4:11 AM OUTBOUND TELEMARKETING REPRESENTATIVE Gender Identity Not on file Sexual Orientation Not on file documented as of this encounter Plan of Treatment Not on file documented as of this encounter Visit Diagnoses Not on filedocumented in this encounter Care Teams Fur Dresser Relationship Specialty Start Date End Date Navarro Mckeon MD [address] [place] [address] [phone] PCP - General Family Practice 10/03/15 documented as of this encounter
--- OUTSIDE RECORDS SUMMARY | 2024-10-30 13:52 | XMS_ITS | Encounter Summary ---
Author Organization [facility] Address [address] [place] [address] Care Team Providers Care Third Officer Name Role Phone Navarro Mckeon MD Primary Care Provider Encounter Details Date Type Department Care Team (Latest Contact Info) Description 10/30/1999 Outpatient Historical [facility] Medicine [place] [address] [place] [address] [phone] Alma Hearn MD [address] [place] [address] Supervision of other normal (Primary Dx) Social History Tobacco Use Types Packs/Day Years Used Date Smoking Tobacco: Never Assessed Comments Unknown Sex and Gender Information Value Date Recorded Sex Assigned at Not on file Legal Sex Female 4:11 AM FLOOR WORKER WELL SERVICE Gender Identity Not on file Sexual Orientation Not on file documented as of this encounter Plan of Treatment Not on file documented as of this encounter Visit Diagnoses Diagnosis Supervision of other normal - Primary documented in this encounter Care Teams Third Officer Relationship Specialty Start Date End Date Navarro Mckeon MD [address] [phone] PCP - General Family Practice 10/03/15 documented as of this encounter
--- OUTSIDE RECORDS SUMMARY | 2024-10-30 13:52 | XMS_ITS | Encounter Summary ---
Author Organization [facility] Address [address] [place] [address] Care Team Providers Care Bulbs Farmworker Name Role Phone Navarro Mckeon MD Primary Care Provider [phone] Encounter Details Date Type Department Care Team (Latest Contact Info) Description 01/14/2000 Outpatient Historical [facility] Medicine [address] [phone] Ernestine Cross MD [address] [place] [address] Supervision of other normal (Primary Dx) Social History Tobacco Use Types Packs/Day Years Used Date Smoking Tobacco: Never Assessed Comments Unknown Sex and Gender Information Value Date Recorded Sex Assigned at Not on file Legal Sex Female 4:11 AM TOWERMAN Gender Identity Not on file Sexual Orientation Not on file documented as of this encounter Plan of Treatment Not on file documented as of this encounter Visit Diagnoses Diagnosis Supervision of other normal - Primary documented in this encounter Care Teams Bulbs Farmworker Relationship Specialty Start Date End Date Navarro Mckeon MD [address] [phone] PCP - General Family Practice 10/03/15 documented as of this encounter
--- OUTSIDE RECORDS SUMMARY | 2024-10-30 13:52 | XMS_ITS | Encounter Summary ---
Author Organization [facility] Address [address] [place] [address] Care Team Providers Care Wheel Mill Operator Name Role Phone Navarro Mckeon MD Primary Care Provider Encounter Details Date Type Department Care Team (Latest Contact Info) Description 11/16/2002 Outpatient Historical [facility] Medicine [place] [address] [place] [address] [phone] Alma Hearn MD [address] [place] [address] SUPERVIS OTHER NORMAL PREG (Primary Dx) Social History Tobacco Use Types Packs/Day Years Used Date Smoking Tobacco: Never Assessed Comments Unknown Sex and Gender Information Value Date Recorded Sex Assigned at Not on file Legal Sex Female 4:11 AM APPLICATIONS DEVELOPMENT CONSULTANT Gender Identity Not on file Sexual Orientation Not on file documented as of this encounter Plan of Treatment Not on file documented as of this encounter Visit Diagnoses Diagnosis Supervision of other normal - Primary documented in this encounter Care Teams Wheel Mill Operator Relationship Specialty Start Date End Date Navarro Mckeon MD [address] [phone] PCP - General Family Practice 10/03/15 documented as of this encounter
--- OUTSIDE RECORDS SUMMARY | 2024-10-30 13:52 | XMS_ITS | Encounter Summary ---
Author Organization [facility] Address [address] [place] [address] Care Team Providers Care Clinical Nutrition Manager Name Role Phone Navarro Mckeon MD Primary Care Provider Encounter Details Date Type Department Care Team (Latest Contact Info) Description 09/21/2002 Outpatient Historical [facility] Medicine [place] [address] [place] [address] [phone] Alma Hearn MD [address] [place] [address] SUPERVIS OTHER NORMAL PREG (Primary Dx) Social History Tobacco Use Types Packs/Day Years Used Date Smoking Tobacco: Never Assessed Comments Unknown Sex and Gender Information Value Date Recorded Sex Assigned at Not on file Legal Sex Female 4:11 AM FLAVORING MACHINE OPERATOR Gender Identity Not on file Sexual Orientation Not on file documented as of this encounter Plan of Treatment Not on file documented as of this encounter Visit Diagnoses Diagnosis Supervision of other normal - Primary documented in this encounter Care Teams Clinical Nutrition Manager Relationship Specialty Start Date End Date Navarro Mckeon MD [address] [phone] PCP - General Family Practice 10/03/15 documented as of this encounter
--- OUTSIDE RECORDS SUMMARY | 2024-10-30 13:52 | XMS_ITS | Encounter Summary ---
Author Organization [facility] Address [address] Muhammad: [place] [address] Care Team Providers Care Waiter And Cashier Name Role Phone Navarro Mckeon MD Primary Care Provider [phone] Encounter Details Date Type Department Care Team (Late st Contact Info) Description 10/30/1999 Outpatient Historical Kaity Rahman, ENDODONTIST [address] [place] [address] [phone] Social History Tobacco Use Types Packs/Day Years Used Date Smoking Tobacco: Never Assessed Comments Unknown Sex and Gender Information Value Date Recorded Sex Assigned at Not on file Legal Sex Female 4:11 AM LOTUS NOTES ADMINISTRATOR Gender Identity Not on file Sexual Orientation Not on file documented as of this encounter Plan of Treatment Not on file documented as of this encounter Visit Diagnoses Not on filedocumented in this encounter Care Teams Waiter And Cashier Relationship Specialty Start Date End Date Navarro Mckeon MD [address] [place] [address] [phone] PCP - General Family Practice 10/03/15 documented as of this encounter
--- OUTSIDE RECORDS SUMMARY | 2024-10-30 13:52 | XMS_ITS | Encounter Summary ---
Author Organization [facility] Address [address] [place] [address] Care Team Providers Care Knitting Machine Operator Helper Name Role Phone Navarro Mckeon MD Primary Care Provider Encounter Details Date Type Department Care Team (Latest Contact Info) Description 04/15/2000 Outpatient Historical [facility] Medicine [place] [address] [place] [address] [phone] Alma Hearn MD [address] [place] [address] Supervision of other normal (Primary Dx) Social History Tobacco Use Types Packs/Day Years Used Date Smoking Tobacco: Never Assessed Comments Unknown Sex and Gender Information Value Date Recorded Sex Assigned at Not on file Legal Sex Female 4:11 AM FINANCIAL AID MANAGER Gender Identity Not on file Sexual Orientation Not on file documented as of this encounter Plan of Treatment Not on file documented as of this encounter Visit Diagnoses Diagnosis Supervision of other normal - Primary documented in this encounter Care Teams Knitting Machine Operator Helper Relationship Specialty Start Date End Date Navarro Mckeon MD [address] [phone] PCP - General Family Practice 10/03/15 documented as of this encounter
--- OUTSIDE RECORDS SUMMARY | 2024-10-30 13:52 | XMS_ITS | Encounter Summary ---
Author Organization [facility] Address [address] [place] [address] Care Team Providers Care Producer Assistant Name Role Phone Navarro Mckeon MD Primary Care Provider [phone] Encounter Details Date Type Department Care Team (Latest Contact Info) Description 02/17/2003 Outpatient Historical [facility] Medicine [place] [address] [place] [address] [phone] Alma Hearn MD [address] [place] [address] SUPERVIS OTHER NORMAL PREG (Primary Dx) Social History Tobacco Use Types Packs/Day Years Used Date Smoking Tobacco: Never Assessed Comments Unknown Sex and Gender Information Value Date Recorded Sex Assigned at Not on file Legal Sex Female 4:11 AM BOOSTER PUMP OILER Gender Identity Not on file Sexual Orientation Not on file documented as of this encounter Plan of Treatment Not on file documented as of this encounter Visit Diagnoses Diagnosis Supervision of other normal - Primary documented in this encounter Care Teams Producer Assistant Relationship Specialty Start Date End Date Navarro Mckeon MD [address] [phone] PCP - General Family Practice 10/03/15 documented as of this encounter
--- OUTSIDE RECORDS SUMMARY | 2024-10-30 13:52 | XMS_ITS | Encounter Summary ---
Author Organization [facility] Address [address] [place] [address] Care Team Providers Care Fisher Name Role Phone Navarro Mckeon MD Primary Care Provider Encounter Details Date Type Department Care Team (Latest Contact Info) Description 05/15/1999 Outpatient Historical [facility] Medicine [place] [address] [place] [address] [phone] Alma Hearn MD [address] [place] [phone] Excessive menstruation (Primary Dx) Social History Tobacco Use Types Packs/Day Years Used Date Smoking Tobacco: Never Assessed Comments Unknown Sex and Gender Information Value Date Recorded Sex Assigned at Not on file Legal Sex Female 4:11 AM SOLID CENTER WINDER Gender Identity Not on file Sexual Orientation Not on file documented as of this encounter Plan of Treatment Not on file documented as of this encounter Visit Diagnoses Diagnosis Excessive menstruation- Primary Excessive or frequent menstruation documented in this encounter Care Teams Fisher Relationship Specialty Start Date End Date Navarro Mckeon MD [address] [phone] PCP - General Family Practice 10/03/15 documented as of this encounter
--- OUTSIDE RECORDS SUMMARY | 2024-10-30 13:52 | XMS_ITS | Encounter Summary ---
Author Organization [facility] Address [address] [place] [address] Care Team Providers Care Major Assembler Name Role Phone Navarro Mckeon MD Primary Care Provider Encounter Details Date Type Department Care Team (Latest Contact Info) Description 04/01/2003 Outpatient Historical [place] [address] [place] [address] [phone] Navarro Mckeon MD [address] [place] [address] SUPERVIS OTHER NORMAL PREG (Primary Dx) Social History Tobacco Use Types Packs/Day Years Used Date Smoking Tobacco: Never Assessed Comments Unknown Sex and Gender Information Value Date Recorded Sex Assigned at Not on file Legal Sex Female 4:11 AM SUPERVISOR ELECTROLYTIC TINNING Gender Identity Not on file Sexual Orientation Not on file documented as of this encounter Plan of Treatment Not on file documented as of this encounter Visit Diagnoses Diagnosis Supervision of other normal - Primary documented in this encounter Care Teams Major Assembler Relationship Specialty Start Date End Date Navarro Mckeon MD [address] [place] [address] [phone] PCP - General Family Practice 10/03/15 documented as of this encounter
--- OUTSIDE RECORDS SUMMARY | 2024-10-30 13:52 | XMS_ITS | Encounter Summary ---
Author Organization [facility] Address [address] [place] [address] Care Team Providers Care Oncology Account Specialist Name Role Phone Navarro Mckeon MD Primary Care Provider Encounter Details Date Type Department Care Team (Latest Contact Info) Description 03/14/2000 Outpatient Historical [facility] Medicine [place] [address] [place] [address] [phone] Alma Hearn MD [address] [place] [address] Supervision of other normal (Primary Dx) Social History Tobacco Use Types Packs/Day Years Used Date Smoking Tobacco: Never Assessed Comments Unknown Sex and Gender Information Value Date Recorded Sex Assigned at Not on file Legal Sex Female 4:11 AM NIGHT SUPERVISOR Gender Identity Not on file Sexual Orientation Not on file documented as of this encounter Plan of Treatment Not on file documented as of this encounter Visit Diagnoses Diagnosis Supervision of other normal - Primary documented in this encounter Care Teams Oncology Account Specialist Relationship Specialty Start Date End Date Navarro Mckeon MD [address] [phone] PCP - General Family Practice 10/03/15 documented as of this encounter
--- OUTSIDE RECORDS SUMMARY | 2024-10-30 13:52 | XMS_ITS | Clinical Summary ---
Author Organization [facility] Address [address] [place] [address] Care Team Providers Care Sales Representative Church Furniture Name Role Phone Navarro Mckeon MD Primary Care Provider [phone] Allergies Active Allergy Reactions Criticality Noted Date Comments Oxycodone-Acetaminophen Seizure High 06/03/2008 Medications lisinopriL (PRINIVIL) 10 mg tablet Take 1 Tablet (10 mg) by mouth daily. For high blood pressure 90 Tablet 2 Active Additional Information Patient not taking.Reported on 01/31/2022 nicotine (NICODERM CQ) 21 mg/24 hr patchIndications: Cigarette nicotine dependence, uncomplicated Apply 1 Patch to skin as directed every 24 hours. 28 Patch 1 2 Active hydrALAZINE (APRESOLINE) 50 mg tablet TAKE 1 & 1/2 (ONE & ONE-HALF) TABLETS BY MOUTH THREE TIMES DAILY FOR 30 DAYS 135 Tablet 5 2 Active amLODIPine (NORVASC) 10 mg tablet TAKE 1 TABLET BY MOUTH ONCE DAILY FOR 30 DAYS 30 Tablet 5 2 Active Active Problems Problem Noted Date Diagnosed Date Essential hypertension 01/31/2022 Prediabetes 01/31/2022 Carpal tunnel syndrome of left wrist 01/08/2017 Cigarette dependence 10/03/2015 Anxiety 05/13/2014 Nausea with vomiting 05/28/2013 Relationship problems 03/03/2013 Mood change 03/03/2013 Cervical high risk HPV (human papillomavirus) te st positive 01/17/2010 Immunizations Immunization Administration Dates Next Due (M-M-R II/PRIORIX)(12 MO UP) MEASLES, MUMPS AND RUBELLA VIRUS VACCINE, 0.5 ML IM/SUBCUT 02/23/1999 Family History Medical History Relation Name Comments Other Father alzh Healthy Mother Relation Name Status Comments Father Mother Alive Social History Tobacco Use Types Packs/Day Years Used Date Smoking Tobacco: Every Day Cigarettes Smokeless Tobacco: Former Tobacco Cessation:Ready to Q uit: No; Counseling Given: Yes Alcohol Use Standard Drinks/Week Comments No 0 (1 standard drink = 0.6 oz pur e alcohol) Comments No Sex and Gender Information Value Date Recorded Sex Assigned at Not on file Legal Sex Female 9:17 AM MANAGER NICU Gender Identity Not on file Sexual Orientation Not on file Last Filed Vital Signs Vital Sign Reading Time Taken Comments Blood Pressure 102/80 01/31/2022 10:55 AM CDT Pulse 88 01/31/2022 10:19 AM CDT Temperature 36.6 C (97.9 F) 01/31/2022 10:19 AM CDT Respiratory Rate 16 01/31/2022 10:19 AM CDT Oxygen Saturation 96% 01/31/2022 10:19 AM CDT Room Air Inhaled Oxygen Concentration - - Weight 90.5 kg (199 lb 9.6 oz) 01/31/2022 10:19 AM CDT Height 162.6 cm (5' 4 ) 01/31/2022 10:19 AM CDT Body Mass Index 34.26 01/31/2022 10:19 AM CDT Plan of Treatment Health Maintenance Due Date Last Done Comments DTAP/TDAP/TD VACCINES (1 - Tdap) 1997 HEPATITIS B VACCINES (1 of 3 - 19+ 3-dose series) 1997 HPV/Cotest (21-29) 1999 CERVICAL CANCER SCREENING 2008 HPV/Cotest (30-65) 2008 PAP SMEAR 2008 Preventative Visit-Managed Medicaid 01/18/2011 01/17/2010, 06/24/2008 BREAST CANCER SCREENING 2018 COLORECTAL SCREENING 2023 Colorectal Cancer Screening 2023 FIT-DNA Q 3 years 2023 FIT/FOBT Q 1 year 2023 Flex Sig/CT Colonography Q 5 years 2023 INFLUENZA VACCINE (#1) 2024 01/31/2022 HPV VACCINES Aged Out No longer eligi ble based on patient's age to complete this topic [place] [address] [place] [address] [employer] MEDICAID Care Teams Sales Representative Church Furniture Relationship Specialty Start Date End Date Navarro Mckeon MD [address] [place] [phone] PCP - General Family Practice 10/03/15
--- OUTSIDE RECORDS SUMMARY | 2024-10-30 13:52 | XMS_ITS | Encounter Summary ---
Author Organization [facility] Address [address] [place] [address] Care Team Providers Care Anesthetic Assistant Name Role Phone Navarro Mckeon MD Primary Care Provider Encounter Details Date Type Department Care Team (Latest Contact Info) Description 07/24/2000 Outpatient Historical [facility] Medicine [address] [phone] Ernestine Cross MD [address] [place] [phone] Surveillance of other previously prescribed contraceptive method (Primary Dx) Social History Tobacco Use Types Packs/Day Years Used Date Smoking Tobacco: Never Assessed Comments Unknown Sex and Gender Information Value Date Recorded Sex Assigned at Not on file Legal Sex Female 4:11 AM INTERIOR DESIGN FACULTY MEMBER Gender Identity Not on file Sexual Orientation Not on file documented as of this encounter Plan of Treatment Not on file documented as of this encounter Visit Diagnoses Diagnosis Surveillance of other previously prescribed contraceptive method- Primary documented in this encounter Care Teams Anesthetic Assistant Relationship Specialty Start Date End Date Navarro Mckeon MD [address] [phone] PCP - General Family Practice 10/03/15 documented as of this encounter
--- OUTSIDE RECORDS SUMMARY | 2024-10-30 13:52 | XMS_ITS | Encounter Summary ---
Author Organization [facility] Address [address] [place] [address] Care Team Providers Care Interior Design Instructor Name Role Phone Navarro Mckeon MD Primary Care Provider [phone] Encounter Details Date Type Department Care Team (Latest Contact Info) Description 12/27/1999 Outpatient Historical [facility] [address] [phone] Ernestine Cross MD [address] [place] [address] Other specified noninflammatory disorder of vagina (Primary Dx); Supervision of other normal Social History Tobacco Use Types Packs/Day Years Used Date Smoking Tobacco: Never Assessed Comments Unknown Sex and Gender Information Value Date Recorded Sex Assigned at Not on file Legal Sex Female 4:11 AM CHIEF LEARNING OFFICER Gender Identity Not on file Sexual Orientation Not on file documented as of this encounter Plan of Treatment Not on file documented as of this encounter Visit Diagnoses Diagnosis Other specified noninflammatory disorder of vagina- Primary Supervision of other normal documented in this encounter Care Teams Interior Design Instructor Relationship Specialty Start Date End Date Navarro Mckeon MD [address] [place] [phone] PCP - General Family Practice 10/03/15 documented as of this encounter
--- OUTSIDE RECORDS SUMMARY | 2024-10-30 13:52 | XMS_ITS | Encounter Summary ---
Author Organization [facility] Address [address] [place] [address] Care Team Providers Care Car Hopper Name Role Phone Navarro Mckeon MD Primary Care Provider Encounter Details Date Type Department Care Team (Latest Contact Info) Description 12/02/2002 Outpatient Historical [place] [address] [place] [address] [phone] Navarro Mckeon MD [address] [place] [address] SUPERVIS OTHER NORMAL PREG (Primary Dx) Social History Tobacco Use Types Packs/Day Years Used Date Smoking Tobacco: Never Assessed Comments Unknown Sex and Gender Information Value Date Recorded Sex Assigned at Not on file Legal Sex Female 4:11 AM CUSTOMER ENGAGEMENT MANAGER Gender Identity Not on file Sexual Orientation Not on file documented as of this encounter Plan of Treatment Not on file documented as of this encounter Visit Diagnoses Diagnosis Supervision of other normal - Primary documented in this encounter Care Teams Car Hopper Relationship Specialty Start Date End Date Navarro Mckeon MD [address] [phone] PCP - General Family Practice 10/03/15 documented as of this encounter
--- OUTSIDE RECORDS SUMMARY | 2024-10-30 13:52 | XMS_ITS | Encounter Summary ---
Author Organization [facility] Address [address] [place] [address] Care Team Providers Care Medical Office Assistant Name Role Phone Navarro Mckeon MD Primary Care Provider Encounter Details Date Type Department Care Team (Latest Contact Info) Description 12/31/2002 Outpatient Historical [place] [address] [place] [address] [phone] Navarro Mckeon MD [address] [place] [address] SUPERVIS OTHER NORMAL PREG (Primary Dx) Social History Tobacco Use Types Packs/Day Years Used Date Smoking Tobacco: Never Assessed Comments Unknown Sex and Gender Information Value Date Recorded Sex Assigned at Not on file Legal Sex Female 4:11 AM POSTULANT Gender Identity Not on file Sexual Orientation Not on file documented as of this encounter Plan of Treatment Not on file documented as of this encounter Visit Diagnoses Diagnosis Supervision of other normal - Primary documented in this encounter Care Teams Medical Office Assistant Relationship Specialty Start Date End Date Navarro Mckeon MD [address] [place] [address] [phone] PCP - General Family Practice 10/03/15 documented as of this encounter
--- OUTSIDE RECORDS SUMMARY | 2024-10-30 13:52 | XMS_ITS | Encounter Summary ---
Author Organization [facility] Address [address] [place] [address] Care Team Providers Care Dean Of Faculty Name Role Phone Navarro Mckeon MD Primary Care Provider Encounter Details Date Type Department Care Team (Latest Contact Info) Description 10/01/2002 Outpatient Historical [place] [address] [place] [address] [phone] Navarro Mckeon MD [address] [place] [address] SUPERVIS OTHER NORMAL PREG (Primary Dx) Social History Tobacco Use Types Packs/Day Years Used Date Smoking Tobacco: Never Assessed Comments Unknown Sex and Gender Information Value Date Recorded Sex Assigned at Not on file Legal Sex Female 4:11 AM CHILD NURSE Gender Identity Not on file Sexual Orientation Not on file documented as of this encounter Plan of Treatment Not on file documented as of this encounter Visit Diagnoses Diagnosis Supervision of other normal - Primary documented in this encounter Care Teams Dean Of Faculty Relationship Specialty Start Date End Date Navarro Mckeon MD [address] [place] [phone] PCP - General Family Practice 10/03/15 documented as of this encounter
--- OUTSIDE RECORDS SUMMARY | 2024-10-30 13:52 | XMS_ITS | Encounter Summary ---
Author Organization [facility] Address [address] [place] [address] Care Team Providers Care High School Sports Coach Name Role Phone Navarro Mckeon MD Primary Care Provider Encounter Details Date Type Department Care Team (Latest Contact Info) Description 02/23/1999 Outpatient Historical [facility] Medicine [place] [address] [place] [address] [phone] Alma Hearn MD [address] [place] [address] Other general counseling and advice for contraceptive management (Primary Dx); Maternal rubella with delivery, with current complication Social History Tobacco Use Types Packs/Day Years Used Date Smoking Tobacco: Never Assessed Comments Unknown Sex and Gender Information Value Date Recorded Sex Assigned at Not on file Legal Sex Female 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
--- OUTSIDE RECORDS SUMMARY | 2024-10-30 13:52 | XMS_ITS | Encounter Summary ---
Author Organization [facility] Address [address] [place] [address] Care Team Providers Care Bottle Carrier Name Role Phone Navarro Mckeon MD Primary Care Provider Encounter Details Date Type Department Care Team (Latest Contact Info) Description 05/30/1999 Outpatient Historical [facility] Medicine [place] [address] [place] [address] [phone] Alma Hearn MD [address] [place] [address] Irregular menstruation (Primary Dx); Supervision of other normal Social History Tobacco Use Types Packs/Day Years Used Date Smoking Tobacco: Never Assessed Comments Unknown Sex and Gender Information Value Date Recorded Sex Assigned at Not on file Legal Sex Female 4:11 AM PHONE TRIAGE SPECIALIST Gender Identity Not on file Sexual Orientation Not on file documented as of this encounter Plan of Treatment Not on file documented as of this encounter Visit Diagnoses Diagnosis Irregular menstruation- Primary Irregular menstrual cycle Supervision of other normal documented in this encounter Care Teams Bottle Carrier Relationship Specialty Start Date End Date Navarro Mckeon MD [address] [phone] PCP - General Family Practice 10/03/15 documented as of this encounter
--- OUTSIDE RECORDS SUMMARY | 2024-10-30 13:52 | XMS_ITS | Encounter Summary ---
Author Organization [facility] Address [address] [place] [address] Care Team Providers Care Rotor Casting Machine Setup Operator Name Role Phone Navarro Mckeon MD Primary Care Provider Encounter Details Date Type Department Care Team (Latest Contact Info) Description 06/09/2000 Outpatient Historical [facility] Medicine [place] [address] [place] [address] [phone] Vinay Land MD [address] [place] [phone] Supervision of other normal (Primary Dx); Other convulsions Social History Tobacco Use Types Packs/Day Years Used Date Smoking Tobacco: Never Assessed Comments Unknown Sex and Gender Information Value Date Recorded Sex Assigned at Not on file Legal Sex Female 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
--- OUTSIDE RECORDS SUMMARY | 2024-10-30 13:52 | XMS_ITS | Encounter Summary ---
Author Organization [facility] Address [address] [place] [address] Care Team Providers Care Planning Technician Name Role Phone Navarro Mckeon MD Primary Care Provider Encounter Details Date Type Department Care Team (Latest Contact Info) Description 11/16/2002 Outpatient Historical [facility] Medicine [place] [address] [place] [address] [phone] Alma Hearn MD [address] [place] [address] SUPERVIS OTHER NORMAL PREG (Primary Dx) Social History Tobacco Use Types Packs/Day Years Used Date Smoking Tobacco: Never Assessed Comments Unknown Sex and Gender Information Value Date Recorded Sex Assigned at Not on file Legal Sex Female 4:11 AM CASH ACCOUNTING CLERK Gender Identity Not on file Sexual Orientation Not on file documented as of this encounter Plan of Treatment Not on file documented as of this encounter Visit Diagnoses Diagnosis Supervision of other normal - Primary documented in this encounter Care Teams Planning Technician Relationship Specialty Start Date End Date Navarro Mckeon MD [address] [phone] PCP - General Family Practice 10/03/15 documented as of this encounter
--- OUTSIDE RECORDS SUMMARY | 2024-10-30 13:52 | XMS_ITS | Encounter Summary ---
Author Organization [facility] Address [address] [place] [address] Care Team Providers Care Step Down Nurse Name Role Phone Navarro Mckeon MD Primary Care Provider Encounter Details Date Type Department Care Team (Latest Contact Info) Description 02/28/2004 Outpatient Historical [facility] Medicine [place] [address] [place] [address] [phone] Alma Hearn MD [address] [place] [address] Irregular menstruation (Primary Dx); CONJUNCTIVITIS NOS; EPISODIC MOOD DISORDER NEC Social History Tobacco Use Types Packs/Day Years Used Date Smoking Tobacco: Never Assessed Comments Unknown Sex and Gender Information Value Date Recorded Sex Assigned at Not on file Legal Sex Female 4:11 AM MANAGER UNIVERSAL Gender Identity Not on file Sexual Orientation Not on file documented as of this encounter Plan of Treatment Not on file documented as of this encounter Visit Diagnoses Diagnosis Irregular menstruation- Primary Irregular menstrual cycle Conjunctivitis unspecified Conjunctivitis, unspecified Other specified episodic mood disorder documented in this encounter Care Teams Step Down Nurse Relationship Specialty Start Date End Date Navarro Mckeon MD [address] [phone] PCP - General Family Practice 10/03/15 documented as of this encounter
--- OUTSIDE RECORDS SUMMARY | 2024-10-30 13:52 | XMS_ITS | Encounter Summary ---
Author Organization [facility] Address [address] [place] [address] Care Team Providers Care Tray Setter Name Role Phone Navarro Mckeon MD Primary Care Provider Encounter Details Date Type Department Care Team (Latest Contact Info) Description 12/13/2005 Outpatient Historical [facility] Medicine [place] [address] [place] [address] [phone] Kaity Rahman, [facility] [address] [place] [address] [phone] Sebaceous Cyst (Primary Dx); Routine Gynecological Examination Social History Tobacco Use Types Packs/Day Years Used Date Smoking Tobacco: Never Assessed Comments Unknown Sex and Gender Information Value Date Recorded Sex Assigned at Not on file Legal Sex Female 4:11 AM SILVER SOLUTION MIXER Gender Identity Not on file Sexual Orientation Not on file documented as of this encounter Plan of Treatment Not on file documented as of this encounter Visit Diagnoses Diagnosis Sebaceous cyst- Primary Routine gynecological examination documented in this encounter Care Teams Tray Setter Relationship Specialty Start Date End Date Navarro Mckeon MD [address] [place] [address] [phone] PCP - General Family Practice 10/03/15 documented as of this encounter
--- OUTSIDE RECORDS SUMMARY | 2024-10-30 13:52 | XMS_ITS | Encounter Summary ---
Author Organization [facility] Address [address] [place] [address] Care Team Providers Care Draw Bench Operator Helper Name Role Phone Navarro Mckeon MD Primary Care Provider Encounter Details Date Type Department Care Team (Latest Contact Info) Description 05/13/2003 Outpatient Historical [place] [address] [place] [address] [phone] Navarro Mckeon MD [address] [place] [address] POSTPART CARE AFTER DEL (Primary Dx) Social History Tobacco Use Types Packs/Day Years Used Date Smoking Tobacco: Never Assessed Comments Unknown Sex and Gender Information Value Date Recorded Sex Assigned at Not on file Legal Sex Female 4:11 AM ORNAMENTAL METAL ERECTOR Gender Identity Not on file Sexual Orientation Not on file documented as of this encounter Plan of Treatment Not on file documented as of this encounter Visit Diagnoses Diagnosis care and examination immediately after delivery- Primary documented in this encounter Care Teams Draw Bench Operator Helper Relationship Specialty Start Date End Date Navarro Mckeon MD [address] [place] [address] [phone] PCP - General Family Practice 10/03/15 documented as of this encounter
--- OUTSIDE RECORDS SUMMARY | 2024-10-30 13:52 | XMS_ITS | Encounter Summary ---
Author Organization [facility] Address [address] [place] [address] Care Team Providers Care Agriculture Research Director Name Role Phone Navarro Mckeon MD Primary Care Provider Encounter Details Date Type Department Care Team (Latest Contact Info) Description 08/26/2000 Outpatient Historical [facility] Medicine [place] [address] [place] [address] [phone] Alma Hearn MD [address] [place] [address] Other general counseling and advice for contraceptive management (Primary Dx); Routine follow-up Social History Tobacco Use Types Packs/Day Years Used Date Smoking Tobacco: Never Assessed Comments Unknown Sex and Gender Information Value Date Recorded Sex Assigned at Not on file Legal Sex Female 4:11 AM JUNIOR DESIGNER Gender Identity Not on file Sexual Orientation Not on file documented as of this encounter Plan of Treatment Not on file documented as of this encounter Visit Diagnoses Diagnosis Other general counseling and advice for contraceptive management- Primary Routine follow-up documented in this encounter Care Teams Agriculture Research Director Relationship Specialty Start Date End Date Navarro Mckeon MD [address] [phone] PCP - General Family Practice 10/03/15 documented as of this encounter
--- OUTSIDE RECORDS SUMMARY | 2024-10-30 13:52 | XMS_ITS | Encounter Summary ---
Author Organization [facility] Address [address] [place] [address] Care Team Providers Care Diplomatic Officer Name Role Phone Navarro Mckeon MD Primary Care Provider Encounter Details Date Type Department Care Team (Latest Contact Info) Description 04/08/2003 Outpatient Historical [facility] Medicine [place] [address] [place] [address] [phone] Alma Hearn MD [address] [place] [address] SUPERVIS OTHER NORMAL PREG (Primary Dx) Social History Tobacco Use Types Packs/Day Years Used Date Smoking Tobacco: Never Assessed Comments Unknown Sex and Gender Information Value Date Recorded Sex Assigned at Not on file Legal Sex Female 4:11 AM INTERIOR DECORATOR PAPERHANGING Gender Identity Not on file Sexual Orientation Not on file documented as of this encounter Plan of Treatment Not on file documented as of this encounter Visit Diagnoses Diagnosis Supervision of other normal - Primary documented in this encounter Care Teams Diplomatic Officer Relationship Specialty Start Date End Date Navarro Mckeon MD [address] [phone] PCP - General Family Practice 10/03/15 documented as of this encounter
--- OUTSIDE RECORDS SUMMARY | 2024-10-30 13:52 | XMS_ITS | Encounter Summary ---
Author Organization [facility] Address [address] [place] [address] Care Team Providers Care Ancillary Specialist Name Role Phone Navarro Mckeon MD Primary Care Provider Encounter Details Date Type Department Care Team (Latest Contact Info) Description 01/24/1999 Outpatient Historical [facility] Medicine [place] [address] [place] [address] [phone] Alma Hearn MD [address] [place] [phone] Irregular menstruation (Primary Dx) Social History Tobacco Use Types Packs/Day Years Used Date Smoking Tobacco: Never Assessed Comments Unknown Sex and Gender Information Value Date Recorded Sex Assigned at Not on file Legal Sex Female 4:11 AM MARBLE AND GRANITE POLISHER Gender Identity Not on file Sexual Orientation Not on file documented as of this encounter Plan of Treatment Not on file documented as of this encounter Visit Diagnoses Diagnosis Irregular menstruation- Primary Irregular menstrual cycle documented in this encounter Care Teams Ancillary Specialist Relationship Specialty Start Date End Date Navarro Mckeon MD [address] [phone] PCP - General Family Practice 10/03/15 documented as of this encounter
--- OUTSIDE RECORDS SUMMARY | 2024-10-30 13:52 | XMS_ITS | Encounter Summary ---
Author Organization [facility] Address [address] [place] [address] Care Team Providers Care Ore Bridge Operator Name Role Phone Navarro Mckeon MD Primary Care Provider Encounter Details Date Type Department Care Team (Latest Contact Info) Description 10/14/2002 Outpatient Historical [facility] [address] [place] [address] [phone] Navarro Mckeon MD [address] [place] [address] SUPERVIS OTHER NORMAL PREG (Primary Dx); THREATEN ABORT-ANTEPART Social History Tobacco Use Types Packs/Day Years Used Date Smoking Tobacco: Never Assessed Comments Unknown Sex and Gender Information Value Date Recorded Sex Assigned at Not on file Legal Sex Female 4:11 AM BRASS SORTER Gender Identity Not on file Sexual Orientation Not on file documented as of this encounter Plan of Treatment Not on file documented as of this encounter Visit Diagnoses Diagnosis Supervision of other normal - Primary Threatened , antepartum documented in this encounter Care Teams Ore Bridge Operator Relationship Specialty Start Date End Date Navarro Mckeon MD [address] [place] [address] [phone] PCP - General Family Practice 10/03/15 documented as of this encounter
--- OUTSIDE RECORDS SUMMARY | 2024-10-30 13:52 | XMS_ITS | Encounter Summary ---
Author Organization [facility] Address [address] [place] [address] Care Team Providers Care Nremt Name Role Phone Navarro Mckeon MD Primary Care Provider Encounter Details Date Type Department Care Team (Latest Contact Info) Description 02/15/2000 Outpatient Historical [place] [address] [place] [address] [phone] Navarro Mckeon MD [address] [place] [address] Supervision of other normal (Primary Dx) Social History Tobacco Use Types Packs/Day Years Used Date Smoking Tobacco: Never Assessed Comments Unknown Sex and Gender Information Value Date Recorded Sex Assigned at Not on file Legal Sex Female 4:11 AM CHANNELER Gender Identity Not on file Sexual Orientation Not on file documented as of this encounter Plan of Treatment Not on file documented as of this encounter Visit Diagnoses Diagnosis Supervision of other normal - Primary documented in this encounter Care Teams Nremt Relationship Specialty Start Date End Date Navarro Mckeon MD [address] [phone] PCP - General Family Practice 10/03/15 documented as of this encounter
--- OUTSIDE RECORDS SUMMARY | 2024-10-30 13:52 | XMS_ITS | Encounter Summary ---
Author Organization [facility] Address [address] [place] [address] Care Team Providers Care Vapor Coater Name Role Phone Navarro Mckeon MD Primary Care Provider Encounter Details Date Type Department Care Team (Latest Contact Info) Description 12/13/2005 Outpatient Historical [facility] Medicine [place] [address] [place] [address] [phone] Kaity Rahman, [facility] [address] [place] [address] [phone] Routine Gynecological Examination (Primary Dx) Social History Tobacco Use Types Packs/Day Years Used Date Smoking Tobacco: Never Assessed Comments Unknown Sex and Gender Information Value Date Recorded Sex Assigned at Not on file Legal Sex Female 4:11 AM CO DIRECTOR Gender Identity Not on file Sexual Orientation Not on file documented as of this encounter Plan of Treatment Not on file documented as of this encounter Visit Diagnoses Diagnosis Routine gynecological examination- Primary documented in this encounter Care Teams Vapor Coater Relationship Specialty Start Date End Date Navarro Mckeon MD [address] [place] [address] [phone] PCP - General Family Practice 10/03/15 documented as of this encounter
--- OUTSIDE RECORDS SUMMARY | 2024-10-30 13:52 | XMS_ITS | Encounter Summary ---
Author Organization [facility] Address [address] [place] [address] Care Team Providers Care Hot Press Operator Name Role Phone Navarro Mckeon MD Primary Care Provider Encounter Details Date Type Department Care Team (Latest Contact Info) Description 03/07/2003 Outpatient Historical [place] [address] [place] [address] [phone] Navarro Mckeon MD [address] [place] [address] SUPERVIS OTHER NORMAL PREG (Primary Dx) Social History Tobacco Use Types Packs/Day Years Used Date Smoking Tobacco: Never Assessed Comments Unknown Sex and Gender Information Value Date Recorded Sex Assigned at Not on file Legal Sex Female 4:11 AM PSYCHIATRIC NURSE Gender Identity Not on file Sexual Orientation Not on file documented as of this encounter Plan of Treatment Not on file documented as of this encounter Visit Diagnoses Diagnosis Supervision of other normal - Primary documented in this encounter Care Teams Hot Press Operator Relationship Specialty Start Date End Date Navarro Mckeon MD [address] [phone] PCP - General Family Practice 10/03/15 documented as of this encounter
--- OUTSIDE RECORDS SUMMARY | 2024-10-30 13:52 | XMS_ITS | Encounter Summary ---
Author Organization [facility] Address [address] [place] [address] Care Team Providers Care Oceanographic Meteorologist Name Role Phone Navarro Mckeon MD Primary Care Provider Encounter Details Date Type Department Care Team (Latest Contact Info) Description 11/15/1999 Outpatient Historical [facility] [place] [address] [place] [phone] Alma Hearn MD [address] [place] [address] Supervision of other normal (Primary Dx) Social History Tobacco Use Types Packs/Day Years Used Date Smoking Tobacco: Never Assessed Comments Unknown Sex and Gender Information Value Date Recorded Sex Assigned at Not on file Legal Sex Female 4:11 AM ASSEMBLIES AND INSTALLATIONS INSPECTOR Gender Identity Not on file Sexual Orientation Not on file documented as of this encounter Plan of Treatment Not on file documented as of this encounter Visit Diagnoses Diagnosis Supervision of other normal - Primary documented in this encounter Care Teams Oceanographic Meteorologist Relationship Specialty Start Date End Date Navarro Mckeon MD [address] [phone] PCP - General Family Practice 10/03/15 documented as of this encounter
--- OUTSIDE RECORDS SUMMARY | 2024-10-30 13:53 | XMS_ITS | Clinical Summary ---
Author Organization [facility] Address [address] [place] [phone] Care Team Providers Care Optical Effects Camera Operator Name Role Phone Navarro Mckeon MD Primary Care Provider [phone] Allergies Active Allergy Reactions Criticality Noted Date Comments Oxycodone-Acetaminophen Seizure High 06/03/2008 Medications amoxicillin (AMOXIL) 500 mg capsule Take 500 mg by mouth 4 times daily. 09/01/2020 Active cephALEXin (KEFLEX) 500 mg capsule Take 500 mg by mouth 2 times daily. Active traMADoL (ULTRAM) 50 mg tabletIndication s:Bartholin gland cyst Take 1 Tablet (50 mg) by mouth every 6 hours as needed for Pain. 20 Tablet 09/13/2020 Active Active Problems Problem Noted Date Diagnosed Date Carpal tunnel syndrome of left wrist 01/08/2017 Cigarette dependence 10/03/2015 Anxiety 05/13/2014 Nausea with vomiting 05/28/2013 Mood change 03/03/2013 Relationship problems 03/03/2013 Cervical high risk HPV (human papillomavirus) [...] Used Date Smoking Tobacco: Every Day Cigarettes 0.5 0.9 Smokeless Tobacco: Former Chew Tobacco Cessation:Ready to Q uit: Yes; Counseling Given: Yes Alcohol Use Standard Drinks/Week Comments No 0 (1 standard drink = 0.6 oz pur e alcohol) Comments No Sex and Gender Information Value Date Recorded Sex Assigned at Not on file Legal Sex Female 4:11 AM RADIO ELECTRONICS OFFICER Gender Identity Not on file Sexual Orientation Not on file Occupation Industry Job Start Date Job End Date Not on file Not on file Not on file Not on file Last Filed Vital Signs Vital Sign Reading Time Taken Comments Blood Pressure 156/111 09/13/2020 2:13 PM CDT Pulse 107 09/13/2020 2:13 PM CDT Temperature 36.1 C (96.9 F) 09/13/2020 2:13 PM CDT Respiratory Rate 16 01/08/2017 2:20 PM CDT Oxygen Saturation 99% 09/13/2020 2:13 PM CDT Inhaled Oxygen Concentration - - Weight 83.3 kg (183 lb 9.6 oz) 09/13/2020 2:13 P M CDT Height 162.6 cm (5' 4 ) 09/13/2020 2:13 PM CDT Body Mass Index 31.51 09/13/2020 2:13 PM CDT Plan of Treatment Health Maintenance Due Date Last Done Comments DTAP/TDAP/TD VACCINES (1 - Tdap) 1997 HEPATITIS B VACCINES (1 of 3 - 19+ 3-dose series) 1997 HPV/Cotest (21-29) 1999 HPV/Cotest (30-65) 2008 Preventative Visit-Managed Medicaid 01/18/2011 01/17/2010, 06/24/2008 CERVICAL CANCER SCREENING 03/03/2016 PAP SMEAR 03/03/2016 03/03/2013, 01/17/2010, 06/24/2008 BREAST CANCER SCREENING 2018 COLORECTAL SCREENING 2023 Colorectal Cancer Screening 2023 FIT-DNA Q 3 years 2023 FIT/FOBT Q 1 year 2023 Flex Sig/CT Colonography Q 5 years 2023 INFLUENZA VACCINE (#1) 2024 HPV VACCINES Aged Out No longer eligi ble based on patient's age to complete this topic Procedures Procedure Name Priority Date/Time Associated Diagnosis Comments CERV/VAG CYTOPATH, THIN PREP BAILIFF Routine 03/03/2013 4:34 PM RADIO ELECTRONICS OFFICER from Last 3 Months or Most Recently Relevant to Health Maintenance Results * CERV/VAG CYTOPATH, THIN PREP BAILIFF (03/03/2013 4:34 PM RADIO ELECTRONICS OFFICER) PATHOLOGY/CY TOLOGY REPORT [facility] Path[facility] Dept [address] [facility] [id number] Patient: WEN GARCIA Accn No: [id number] , [id number] Collected: 03/03/2013 4:34:00 PM All cases except those with a DP prefix are performed by pathologists from [facility] at [facility]. Case type DP is performed by Dr. Damián Blanco, [facility], [facility], [address], [address], [place] [address] (CLIA #[id number]) (Ph. [phone]). CYTOLOGY SCHOOL LIBRARIAN FINAL REPORT - - BAILIFF PAP History Specimen Type: Endocervical LMP: 02/07/13 Previous Pap History: None Provided Specimen Adequacy Satisfactory for interpretation. The smear shows sufficient numbers of endocervical or metaplastic cells. Diagnosis NEGATIVE FOR INTRAEPITHELIAL LESION OR MALIGNANCY. (Previously noted as Within Normal Limits) Crematorium Operator/ LORRAINEM Pathologist: 03/16/13 Completed by: ELEAZAR MARTÍNEZ BSCT(ASCP) (Electronically signed by) 03/16/13 Comment Routine follow-up is suggested. Important Information About Pap Smears The Pap smear is associated with a low but well-documented and probably irreducible false negative rate of up to 10%. Additionally, the false positive rate for a diagnosis of invasive carcinoma or HSIL has been estimated to be approximately 1-10%. Therefore, any visible lesion on the cervix should be biopsied regardless of Pap smear findings. HPV Testing off the Thin Prep vial can be done as a means of further evaluating a Thin Prep Report. For information about ordering the HPV test, phone Virology at . Treatment or follow-up recommendations (if any) that are contained within this report are based upon general recommendations as contained in 2001 Consensus Guidelines For Cervical Cytological Abnormalities WANDA: August 05, 2001, and are provided as a general guideline rather than as a specific recommendation. Final decisions about the most appropriate treatment and follow-up should be made on an individualized basis by the treating physician in consultation with his/her patient. [facility] 03/03/2013 4:34 PM RADIO ELECTRONICS OFFICER us Kaiyt Aneudy Rahman TRANSMISSION LINE ENGINEER PATHOLOGY/CYTOLOGY ORDERABLES Edited Result - Final INTERFACE SYSTEM Refer to clinic/hospital department [facility] CLIA# [id number] [address] [place] [address] from Last 3 Months or Most Recently Relevant to Health Maintenance [place] [address] [place] [address] [employer] Care Teams Optical Effects Camera Operator Relationship Specialty Start Date End Date Navarro Mckeon MD [address] [place] [phone] PCP - General Family Practice 10/03/15
--- OUTSIDE RECORDS SUMMARY | 2024-10-30 13:53 | XMS_ITS | Encounter Summary ---
Author Organization [facility] Address [address] [place] [address] Care Team Providers Care Pizza Baker Name Role Phone Navarro Mckeon MD Primary Care Provider [phone] Encounter Details Date Type Department Care Team (Late st Contact Info) Description 08/17/2015 Nurse Triage Report [id number] ABSTRACTION Pippa Hawkins, RN Social History Tobacco Use Types Packs/Day Years Used Date Smoking Tobacco: Every Day Cigarettes 0.5 0.9 Smokeless Tobacco: Former Chew Alcohol Use Standard Drinks/Week Comments No 0 (1 standard drink = 0.6 oz pur e alcohol) Comments No Sex and Gender Information Value Date Recorded Sex Assigned at Not on file Legal Sex Female 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 Gender Identity Not on file Sexual Orientation Not on file Occupation Industry Job Start Date Job End Date Not on file Not on file Not on file Not on file documented as of this encounter Progress Notes * Pippa Hawkins, RN - 08/17/2015 6:15 PM CDT CHART DOCUMENTATION ONLY Call Type: Triage Call Associated Symptoms: panic attack earlier, she had rage and a fit, shaking, yelling, tantrum, lost her breath ,hyperventilating Onset: 30 min ago Location: emotions Pain Assessment: 1 - 10 with 10 being the most severe pain none Treatment so far for current presenting problem: none History (Clinical Problems): pt under stress after receiving custody papers informing her that custody will go to he son's father. (mood changes) Medications: none Medication reactions: percocet <<<<<<<< TRIAGE NOTE >>>>>>>> Triage Note: Administrative Support Assistant Pippa Hawkins added this note on Aug 17 2015 6:15PM: Pt's friend, Jason, states pt and he will call into the office in the morning to make an appointment, as we do not make see in 24 appts for the office. Pt was calm from the beginning of the call to the end of it. He states he is calling her close friends to be with her this evening. <<<<<<<< TRIAGE/OUTCOME >>>>>>>> Guideline Title: Suicidal, Homicidal, or Harmful Behavior Recommended Disposition: See Provider within 24 hours Original Inclination: Call Provider/See in 24 Intended Action: Call or See Provider within 24 hrs Physician Contacted: No New or increasing symptoms AND not currently in treatment; not taking medications/therapy; or change in medication or therapy ? YES documented in this encounter Plan of Treatment Not on file documented as of this encounter Visit Diagnoses Not on filedocumented in this encounter Care Teams Pizza Baker Relationship Specialty Start Date End Date Navarro Mckeon MD [address] [place] [phone] PCP - General Family Practice 10/03/15 documented as of this encounter
--- NOTE | 2024-10-30 14:01 | ED_ITS ---
HPI - URI/Sore Throat General: Chief Complaint: Upper Respiratory Infection Stated Complaint: sore thoart Time Seen by Provider: 10/30/24 13:54 History of Present Illness: 44-year-old female presents emergency ro om with complaints of sore throat for the last couple of days she also has some left ear pain. No vomiting no diarrhea no rash. No drainage from the ear. Associated symptoms: Deny abdominal pain, chills, chest pain or fever(s) Related Data Home Medications ?Medication ?Instructions ?Recorded ?Confirmed gabapentin 300 mg capsule 300 mg PO TID 10/25/2410/25 propranolol 20 mg tablet 20 mg PO TID 10/25/24 Previous Rx's ?Medication ?Instructions ?Recorded naltrexone 50 mg tablet 50 mg PO DAILY #30 tabs 10/12 08/06 trazodone 100 mg tablet 300 mg (3 x 100 mg) PO .HS P RN 10/25/24 insomnia #90 tabs amoxicillin 875 mg tablet 875 mg PO BID #20 tabs 10/30 Allergies Allergy/AdvReac Type Severity Reaction Status Date / Time pineapple Allergy Severe Unknown Verified 10/30/24 13:55 Review of Systems Const: Denies: fever(s) or chills ENMT: Reports: throat pain, odynophagia and hoarseness; Denies: uvular edema, enlarged tonsils or swelling of lips/tongue Card: Denies: chest pain Resp: Denies: dyspnea GI: Denies: abdominal pain : Denies: dysuria, urinary frequency or urinary urgency Musc: Denies: neck pain or back pain Skin/Breast: Denies: rash [facility] ED [facility]: Medical History Psychiatric care Bartholin gland cyst 10/17/2021- Left bartholin gland marsupialization performed by Dr. Donohue at [facility] Hypertension Surgical History History of delivery x3 - first one due to failure to progress. Family History Mother Anesthesia complication Father Dementia Other Bleeding disorder CAD (coronary artery disease) Cancer Chronic kidney disease (CKD) Clotting disorder Diabetes Hypertension Stroke Denies family history of Hyperlipidemia Psychiatric illness Suicide Lung disease Social History Smoking and tobacco/nicotine status: current every day tobacco/nicotine user Quit status (tobacco/nicotine): not considering quitting Second hand smoke exposure: Yes Alcohol intake: never Substance/Drug Use: never Female Reproductive History: Date of last menstrual period: 10/12/24 Physical Exam Const: COMMON NORMALS: no acute distress GENERAL APPEARANCE: cooperative and comfortable ORIENTATION/CONSCIOUSNESS: Yes awake, Yes oriented to person, Yes oriented to place and Yes oriented to time HENMT: COMMON NORMALS: normocephalic, atraumatic, hearing grossly normal bilaterally, external ears normal, EAC's normal, TM's normal bilaterally and Normal nasal mucous membranes and turbinates present HEAD & SCALP: normocephalic and atraumatic NOSE: Normal nasal mucous membranes and turbinates present EXTERNAL EAR: Yes external ears normal EXTERNAL AUDITORY CANAL: EAC's normal TYMPANIC MEMBRANE: TM's normal bilaterally THROAT: no uvular edema OTHER: Pharyngeal tonsils are barely discernible very small some moderate posterior pharyngeal wall redness no abnormal contour or bulging noted. Eye: COMMON NORMALS: Equal, round and reactive pupils present, EOMs intact bilaterally, conjunctivae normal and no scleral icterus CONJUNCTIVA: Yes conjunctivae normal PUPIL: Yes Equal, round and reactive pupils present Neck/C-Spine: COMMON NORMALS: full ROM, supple and no JVD Lymph: LYMPHATIC: lymphadenopathy (Submandibular and cervical) Resp: COMMON NORMALS: normal respiratory effort, No retractions, No use of accessory muscles and clear to auscultation bilaterally AUSCULTATION: clear to auscultation bilaterally Cardio: COMMON NORMALS: no JVD, regular rate, regular rhythm and No murmurs present (Cardio) RATE: regular rate RHYTHM: regular rhythm GI: COMMON NORMALS: Soft to palpation and No hepatosplenomegaly present AUSCULTATION: Yes normoactive bowel sounds PALPATION: Yes Soft to palpation, No Tenderness to palpation present (GI), No Guarding due to palpation present (GI) and Yes No hepatosplenomegaly present Extremity: COMMON NORMALS: normal to inspection, capillary refill normal, no clubbing, cyanosis or edema, no calf tenderness and no pedal edema Neuro: SENSORIUM/ORIENTATION: Yes oriented to person, Yes oriented to place and Yes oriented to time Skin: COMMON NORMALS: no rashes or lesions noted GENERAL SKIN EXAM: no rashes or lesions noted Course Vital Signs: Vital signs: Vital Signs Temperature 97.7 F 10/30/24 13:51 Pulse Rate 60 10/30/24 14:20 Respiratory Rate 16 10/30/24 14:20 Blood Pressure 91/57 10/30/24 14:20 Pulse Oximetry 98 10/30/24 14:20 Oxygen Delivery Me thod Room Air 10/30/24 13:51 MDM - URI/Sore Throat Medical Decision Making Patient has moderate pharyngitis no sign of abscess or abnormal contour to the posterior pharyngeal wall has some tender submandibular lymphadenopathy but is rather limited. Will treat with amoxicillin 875 twice daily for 10 days. He gave a 10 mg dexamethasone while in the emergency room. Medical Records I reviewed the patient's medical records. Lab Data I reviewed the patient's lab results. No radiology studies performed this visit Discharge Plan Discharge Patient Disposition: Home Clinical Impression: Pharyngitis Condition: Stable Prescriptions: New amoxicillin 875 mg tablet 875 mg PO BID Qty: 20 0RF No Action gabapentin 300 mg capsule 300 mg PO TID propranolol 20 mg tablet 20 mg PO TID trazodone 100 mg tablet 300 mg PO .HS PRN (Reason: insomnia) Qty: 90 1RF naltrexone 50 mg tablet 50 mg PO DAILY Qty: 30 1RF Discharge Orders: Discharge ED (Routine); Ordered 10/30/24 Ordered By: Nikolas Mo Referrals: Kaity Rahman FNP [Primary Care Provider, Family Practice] Discharge Diet: Clear Liquid Discharge Activity: Increase activity as tolerated Patient Instructions: Opioid Safety, Pain Management, Patient Portal & Jonny Instructions Activity Restrictions/Additional Instructions: Thank you for choosing [facility] for your healthcare needs today. It is very important that you follow up as instructed or that you return to the Emergency Department should you have concerns or if your condition changes or worsens in any way. Print Language: Portuguese Coding Level of Care Code ED Environmental Communications Specialist for Johnny Lim
[2024-10-30 14:20] VITALS: BP 91/57; PULSE 60; RESP 16; O2SAT 98
== END 2024-10-30 14:21 | disposition home or self-care (01) ==
PROVIDERS: Emergency Provider Family Medicine; PCP Nurse Practitioner Family
DX: J02.9 Acute pharyngitis, unspecified (principal); Z72.0 Tobacco use; I10 Essential (primary) hypertension
CPT/HCPCS: 96372; 99284; J1100

== ENCOUNTER → 2025-02-11 09:30 | Outpatient (BNVA) | payer MEDICAID, SELFPAY | PROVIDERS: PCP Nurse Practitioner Family; Visit Provider Nurse Practitioner | DX: S62.634A Displaced fracture of distal phalanx of right ring finger, initial encounter for closed fracture (principal); V86.99XA Unspecified occupant of other special all-terrain or other off-road motor vehicle injured in nontraffic accident, initial encounter | CPT/HCPCS: 73130 ==

== ENCOUNTER 2025-02-11 10:59 | Outpatient (CLI) | payer MEDICAID, SELFPAY | END 2025-02-11 11:00 | disposition home or self-care (01) | LOC: SPT 11:00 | PROVIDERS: PCP Nurse Practitioner Family; Visit Provider Nurse Practitioner | DX: Z46.89 Encounter for fitting and adjustment of other specified devices (principal); S62.604D Fracture of unspecified phalanx of right ring finger, subsequent encounter for fracture with routine healing; X58.XXXD Exposure to other specified factors, subsequent encounter | CPT/HCPCS: L3984 ==

== ENCOUNTER → 2025-02-25 10:06 | Outpatient (BNVA) | payer MEDICAID, SELFPAY | PROVIDERS: PCP Nurse Practitioner Family; Visit Provider Nurse Practitioner | DX: S62.629D Displaced fracture of middle phalanx of unspecified finger, subsequent encounter for fracture with routine healing (principal); V86.99XD Unspecified occupant of other special all-terrain or other off-road motor vehicle injured in nontraffic accident, subsequent encounter | CPT/HCPCS: 73130 ==

== ENCOUNTER → 2025-03-18 09:18 | Outpatient (BNVA) | payer MEDICAID, SELFPAY | PROVIDERS: PCP Nurse Practitioner Family; Visit Provider Nurse Practitioner | DX: S62.629D Displaced fracture of middle phalanx of unspecified finger, subsequent encounter for fracture with routine healing (principal); V86.99XD Unspecified occupant of other special all-terrain or other off-road motor vehicle injured in nontraffic accident, subsequent encounter | CPT/HCPCS: 73130 ==